=== PATIENT | female | born 1930 | race Caucasian/White ===

== ENCOUNTER 2018-12-11 11:24 | Inpatient (IN) | payer MEDICARE ==
[2018-12-11 11:54] LABS: ABS Eosinophils 0.1 10^3/ul (0-0.6); ABS Lymphocytes 0.8 10^3/ul (1.0-4.8); ABS Monocytes 0.6 10^3/ul (0-0.8); ABS Neutrophils 3.8 10^3/ul (1.5-7.7); Eosinophil % 2.5 %; Hematocrit 42 % (35-47); Hemoglobin 14.3 g/dL (12.0-16.0); Lymphocyte % 14.9 %; Mean Corpuscular HGB Conc 34 g/dL (31-36); Mean Corpuscular Hemoglobin 34 pg (27-31); Mean Corpuscular Volume 100 fL (80-97); Mean Platelet Volume 9.6 fL (7.4-10.4); Nucleated Red Blood Cells % 0.1; Platelet Count 130 10^3/uL (150-450); Red Cell Distribution Width 13 % (10-15); White Blood Count 5.4 10^3/uL (3.5-10.8)
--- NOTE | 2018-12-11 12:01 | ED ---
Palpitations / Dysrhythmia - HPI Summary HPI Summary: The patient is an 88 y/o F presenting to [facility] with a chief complaint of Dr. Reeves's concern for bradycardia this morning. She reports that she was at an appointment at Dr. Reeves's office this morning, when she had been bradycardic in the 30s bpm. She denies any weakness, dizziness, or syncope during the event. She was, however, experiencing diffuse pain across the chest that is still mildly present, and she also c/o dizziness now. She denies any history of Lyme disease. 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 Surgical hx of stents in legs. Nonsmoker, no EtOH, no substance use. - History of Current Complaint Chief Complaint: EDDysrhythmPalp Time Seen by Provider: 12/11/18 11:46 Hx Obtained From: Patient, Other: - Dr. Reeves Onset/Duration: Sudden Onset, Lasting Hours - this morning during her appointment, Still Present Timing: Constant Severity Initially: Moderate Severity Currently: Moderate Character: Slow, Irregular Aggravating: Nothing Alleviating: Nothing Associated Signs & Symptoms: Chest Pain - mild, diffuse - Allergy/Home Medications Allergies/Adverse Reactions: Allergies Allergy/AdvReac Type Severity Reaction Status Date / Time aspartame Allergy Unknown Verified 12/11/18 13:32 Reaction Details metoprolol Allergy Unknown Verified 12/11/18 12:33 Reaction Details pentoxifylline Allergy Unknown Verified 12/11/18 12:33 Reaction Details aspirin AdvReac Nausea Verified 12/11/18 13:32 atorvastatin [From Lipitor] AdvReac Leg Cramps Verified 12/11/18 13:32 clopidogrel [From Plavix] AdvReac GI Upset Verified 12/11/18 13:32 ezetimibe [From Zetia] AdvReac Leg Cramps Verified 12/11/18 13:32 niacin AdvReac Leg Cramps Verified 12/11/18 13:32 Wbicfyl-Mns-Jsa Reductase AdvReac Leg Cramps Verified 12/11/18 13:32 Inhibitor TRUVIA Allergy Unknown Unknown Uncoded 03/24/13 11:50 Reaction Details splenda Allergy Unknown Uncoded 03/24/13 11:50 Reaction Details Home Medications: Home Medications Aspirin EC TAB* [Ecotrin EC Low Dose 81 MG*] 81 mg PO DAILY 12/11/18 [History Confirmed 12/11/18] Atenolol TAB* [Tenormin TAB* 25 MG] 25 mg PO DAILY 12/11/18 [History Confirmed 12/11/18] Cholecalciferol TAB* [Vitamin D TAB*] 2,000 units PO DAILY 12/11/18 [History Confirmed 12/11/18] Cyanocobalamin TAB* [Vitamin B12 TAB*] 1,000 mcg PO DAILY 12/11/18 [History Confirmed 12/11/18] Gabapentin CAP(*) [Neurontin 100 mg CAP(*)] 100 mg PO BEDTIME 12/11/18 [History Confirmed 12/11/18] Lisinopril TAB* [Prinivil TAB*] 20 mg PO DAILY 12/11/18 [History Confirmed 12/11] Multivitamins/Minerals TAB* [Theragran/minerals TAB*] 1 tab PO DAILY 12/11/18 [ History Confirmed 12/11/18] PMH/Surg Hx/FS Hx/Imm Hx Endocrine/Hematology History: Denies: Hx Diabetes, Hx Sickle Cell Disease Cardiovascular History: Reports: Hx Angina, Hx Coronary Artery Disease, Hx Hypercholesterolemia, Hx Hypertension, 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, Hx Valvular Heart Disease - aortic valve replaced 7yr ago Denies: Hx Pacemaker/ICD Respiratory History: Denies: Hx Asthma, Hx Chronic Obstructive Pulmonary Disease (COPD), Other Respiratory Problems/Disorders GI History: Reports: Other GI Disorders - colon resection, colon CA History: Reports: Hx Kidney Stones Denies: Other Problems/Disorders Musculoskeletal History: Reports: Hx Arthritis Denies: Hx Rheumatoid Arthritis, Hx Osteoporosis Sensory History: Reports: Hx Contacts or Glasses, Other Sensory Impairments - vertigo Denies: Hx Hearing Aid Opthamlomology History: Reports: Hx Contacts or Glasses, Other Sensory Impairments - vertigo Neurological History: Reports: Other Neuro Impairments/Disorders - neuropathy, vertigo Psychiatric History: Denies: Hx Panic Disorder - Cancer History Cancer Type, Location and Year: Colon Cancer, SKIN Hx Chemotherapy: Yes - COLON CANCER, 70'S Hx Radiation Therapy: Yes - Surgical History Surgery Procedure, Year, and Place: COLON RESECTION. AORTIC VALVE REPLACED 05/24- [place]- [address] [facility] PORCINE VALVE: [id number], CONDITIONAL FOR 1.5T TO 3.0 T MRI MAX SPATIAL GRADIENT LESS THAN OR EQUAL TO 3000 GAUSS/cm ( INFORMATION SCANNED INTO PT'S EMR). ANGIOPLASTY. HERNIA REPAIR Xs 2 -1998 & 2013. CATARACT. STENTS IN LEGS TO OPEN UP BLOODFLOW. CYSTS REMOVED FROM VARIOUS PARTS OF BODY Hx Anesthesia Reactions: No Infectious Disease History: No Infectious Disease History: Denies: Traveled Outside the [place] in Last 30 Days - Family History Known Family History: Positive: Cardiac Disease, Hypertension - Social History Occupation: Retired Lives: With Family - son Alcohol Use: None Hx Substance Use: No Substance Use Type: Reports: None Hx Tobacco Use: No Smoking Status (MU): Never Smoked Tobacco Review of Systems Positive: Chest Pain - diffuse across chest, Other - bradycardia (per Dr. Reeves ) Neurological: Other - no dizziness at time of event but is mildly dizzy in ED Negative: Weakness, Syncope All Other Systems Reviewed And Are Negative: Yes Physical Exam - Summary Physical Exam Summary: Appearance: Well appearing, no pain distress Skin: warm, dry, reflects adequate perfusion Head/face: normal Eyes: EOMI, KEREN ENT: normal Neck: supple, non-tender Respiratory: CTA, breath sounds present Cardiovascular: regularly irregular HR with bradycardia, pulses symmetrical Abdomen: non-tender, soft Musculoskeletal: normal, strength/ROM intact Neuro: normal, sensory motor intact, A&Ox3 Triage Information Reviewed: Yes Vital Signs On Initial Exam: Initial Vitals Temp Pulse Resp BP Pulse Ox 98.5 F 30 18 180/62 98 12/11/18 11:33 12/11/18 11:33 12/11/18 11:33 12/11/18 11:33 12/11/18 11:33 Vital Signs Reviewed: Yes Diagnostics - Vital Signs Vital Signs Temp Pulse Resp BP Pulse Ox 12/11/18 11:33 98.5 F 30 18 180/62 98 - Laboratory Result Diagrams: 12/11/18 11:47 12/11/18 11:47 Lab Statement: Any lab studies that have been ordered have been reviewed, and results considered in the medical decision making process. - Radiology CXR Radiology Interpretation Completed By: Radiologist Summary of Radiographic Findings: Impression: No active cardiopulmonary disease is noted. ED physician has reviewed this report. - EKG 1139 Cardiac Rate: NL - 52 BPM, Bradycardia EKG Rhythm: Sinus Bradycardia Summary of EKG Findings: Sinus bradycardia at 52 bpm. No acute ischemic changes. Re-Evaluation - Re-Evaluation First Eval Re-Evaluation Time: 12:30 Comment: I spoke with the patient concerning admission. She agrees with this plan. Course/Dx - Course Course Of Treatment: The patient is an 88 y/o F presenting to [facility] with a chief complaint of Dr. Reeves's concern for bradycardia in the 30 bpm range with diffuse CP this morning while being evaluated in the office. Mild dizziness and CP present in ED. Denies weakness, syncope, and hx of Lyme disease. 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 Surgical hx of stents in legs. Upon physical exam, the patient exhibits a regularly irregular heart rate that is bradycardic. Blood work reveals MCV of 100, MCH of 34, plt count of 130, abs lymphs of 0.8, creatinine of 1.02, BUN/ Creatinine ratio of 23.5, glucose of 107, calcium of 10.5. EKG at 1139 reveals sinus bradycardia at 52 bpm. CXR reveals no active cardiopulmonary disease. At 1210, I spoke with Dr. Nevarez, cardiology, concerning the patient's EKG, and he agreed to come to the ED to consult for the patient. He is in the ED at 1215. I also discussed the patients case with Dr. Fong, hospitalist, and he accepts the patient for admission at 1225. The patient agrees with this plan. She is diagnosed with bradycardia and dizziness. - Diagnoses Differential Diagnosis/HQI/PQRI: Positive: Other - dizziness/bradycardia Provider Diagnoses: Bradycardia, Dizziness - Physician Notifications Discussed Care Of Patient With: Jason Nevarez - cardiology Time Discussed With Above Provider: 12:10 Instructed by Provider To: Other - I spoke with Dr. Nevarez concerning the patient's EKG, and he agreed to come to the ED to consult for the patient. I spoke with Dr. Fong concerning the patient's case, and he accepts the patient for admission at 1225. Discharge - Sign-Out/Discharge Documenting (check all that apply): Patient Departure - Patient is accepted for admission by Dr. Fong for further workup. Patient Received Moderate/Deep Sedation with Procedure: No - Discharge Plan Condition: Stable Disposition: ADMITTED TO [facility] Referrals: La Minor MD [Primary Care Provider] - - Billing Disposition and Condition Condition: STABLE Disposition: Admitted to [facility] - Attestation Statements Document Initiated by José: Yes Documenting Scribe: Shonna Alfonso Provider For Whom José is Documenting (Include Credential): Dr. Jeffery Torres MD Scribe Attestation: Shonna Purcell scribed for Dr. Jeffery Torres MD on 12/11/18 at 1352. Scribe Documentation Reviewed: Yes Provider Attestation: The documentation as recorded by the Shonna moore accurately reflects the service I personally performed and the decisions made by , Dr. Jeffery Torres MD Status of Scribe Document: Viewed
[2018-12-11 12:07] LABS: INR 1.04 (0.82-1.09)
--- OUTSIDE RECORDS SUMMARY | 2018-12-11 12:13 | XMS REPORT | Continuity of Care Document ---
:1930 External Reference #:[id number] Author Name Minerva Clark Care Team Providers Name Role Phone La Arzola MD Primary Care Physician Unavailable Payers Date Identification Numbers Payment Provider Subscriber Effective: 2007 Policy Number: [id number] [employer] Gifty Merida PayID: [id number] [address] [address] Attn: [place] [address] Problems Active Problems Provider Date Chest pain Pilo Jean M.D., [facility], Onset: 03/08/2013 FASVT Aortic valve disorder Pilo Jean M.D., [facility], Onset: 06/14/2013 FASNC Dyspnea Nancy Reeves MD Onset: 09/29/2015 Gastroesophageal reflux disease Nancy Reeves MD Onset: 09/29/2015 Allergic rhinitis Nancy Reeves MD Onset: 09/29/2015 Asthma without status asthmaticus Nancy Reeves MD Onset: 11/02/2015 Dizziness Linette Rich M.D. Onset: 07/02/2016 Mitral valve disorder Pilo Jean M.D., [facility], Onset: 04/29/2017 FASVT Atherosclerosis of arteries of the Stas Katharine Green M.D. 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 [employer] ETOH Use Denies alcohol use Recreational Drug Use Never Used Drugs Tobacco Use Start: Unknown Patient is a former social smoker, quit End: Unknown smoker in 1970's Smoking Status Reviewed: 12/11/18 Patient is a former social smoker, quit smoker in 1969's Exercise Type/Frequency Exercises sporadically keep busy around house and waking when then weather permits Allergies, Adverse Reactions, Alerts Active Allergies Reaction Severity Comments Date Aspartame 03/04/2013 Lipitor 03/04/2013 Zocor 03/04/2013 Statins 03/08/2013 Lescol 03/08/2013 Zetia 03/08/2013 Niaspan 03/08/2013 Crestor 03/08/2013 Pentoxifylline 03/08/2013 Metoprolol 03/08/2013 Plavix 03/08/2013 ALL Artificial Sweeteners 03/08/2013 [facility] Vitamins 06/14/2013 Medications Active Medications SIG Qnty Indications Ordering Provider Date Gabapentin 2 by mouth at Unknown 09/28/2015 100mg Capsules bed time Atenolol 1 tab by mouth 90tabs Pilo Jean, 03/16/2012 25mg Tablets every day M.D., FACC, FASNC Lisinopril 1 tab by mouth 90tabs Pilo Jean, 03/16/2012 20mg Tablets every day M.D., FACC, FASNC Aspirin 1 po qd Unknown 81mg Tablet Multivitamins 1 capsule daily 30caps Unknown Capsules Vitamin D 1 by mouth every Unknown 2000Unit day Capsules Vitamin B12 1 by mouth every Unknown 1000mcg day Tablets ER Ipratropium [place] spray 3 times Unknown 0.03% daily Solution History Medications Xopenex HFA take 2 pufffs 75units Nancy Reeves, 02/04/2018 - every 4-6 hours as 07/27/2018 45mcg/Act Aerosol needed for shortness of breath Singulair 1 by mouth every 90tabs J45.909 Nancy Reeves, 11/02/2015 - 10mg day( not on pt 07/01/2016 Tablets list) Pulmicort inhale one puff by 3units R06.02 Nancy Reeves, 09/29/2015 - Flexhaler mouth twice a day 07/27/2018 90mcg/Act Aerosol Zantac 1 tab by mouth at 90tabs K21.9 Nancy Reeves, 09/29/2015 - 150mg night (pt no 12/10/2017 Tablets longer taking) Proair HFA 1 puff every 6 3units R06.02 Nancy Reeves, 09/29/2015 - hours as needed 07/27/2018 108(90Base) mcg/Act Aerosol Vesicare 1 by mouth every Unknown 09/28/2015 - 5mg day 03/01/2016 Tablets Nitrostat one sl q5min up to 25tabs Pilo Hopper 02/23/2013 - 0.4mg 3 doses prn, if no Miguelina Jean, 06/03/2014 Tablets Sub relief after 3 FAC, KAILASH call 911 Meclizine HCL bid prn Unknown - 07/27/2018 12.5mg Tablets Ambien 1 po qhs prn sleep 30tabs Unknown - 10mg insomnia 06/03/2014 Tablets Tramadol HCL 1-2 tablets every 100tabs Unknown - 50mg 6 hours as needed 12/10/2018 Tablets Vitamin D3 daily Unknown - Complete 05/20/2013 Tablets Citracal Plus prn Unknown - 05/20/2013 Tablets Calcium 600MG With 1 po qd Unknown - Vitamin D3 04/10/2015 [id number] Tablets Medications Administered in Office Medication SIG Qnty Indications Ordering Provider Date Depomedrol 40MG Katia Jenkins M.D. 11/06/2017 Injection Depomedrol 40MG NIKKIE Raymond 12/11/2016 Injection Depomedrol 40MG Katia Jenkins M.D. 03/20/2016 Injection Inj, Regadenoson, 0.1 MG Pilo Jean M.D., 04/10/2015 Injection AZARKAILASH Aminophylline Pilo Jean M.D., 04/10/2015 Injection KAILASH BAUMAN Technetium TC 99M Pilo Jean M.D., 04/10/2015 Tetrofosmin, Per Unit Dose Up KAILASH BAUMAN To 40 Millicuries Injection Vital Signs Date Vital Result Comment 12/11/2018 10:11am Height 66 inches 5'6" Weight 122.25 lb Heart Rate 30 /min 41 on pulse ox BP Systolic Sitting 136 mmHg Lue regular cuff BP Diastolic Sitting 84 mmHg Lue regular cuff Respiratory Rate 20 /min O2 % BldC Oximetry 97 % BMI (Body Mass Index) 19.7 kg/m2 10/14/2018 11:31am Height 66 inches 5'6" Weight 131.00 lb Heart Rate 50 /min BP Systolic Sitting 110 mmHg BP Diastolic Sitting 60 mmHg Respiratory Rate 16 /min BMI (Body Mass Index) 21.1 kg/m2 07/28/2018 1:59pm Height 66 inches 5'6" Weight 126.50 lb w/o shoes Heart Rate 60 /min BP Systolic 140 mmHg Rue small cuff BP Diastolic 60 mmHg Rue small cuff BP Systolic Sitting 140 mmHg Rue small cuff BP Diastolic Sitting 90 mmHg Rue small cuff Respiratory Rate 16 /min BMI (Body Mass Index) 20.4 kg/m2 Ejection Fraction 60-65% 07/21/18 echo 12/11/2017 11:18am Height 66 inches 5'6" Weight 132.00 lb Heart Rate 72 /min BP Systolic Sitting 116 mmHg BP Diastolic Sitting 76 mmHg Respiratory Rate 14 /min O2 % BldC Oximetry 96 % BMI (Body Mass Index) 21.3 kg/m2 11/06/2017 12:57pm Height 66 inches 5'6" Weight 140.00 lb Heart Rate 60 /min Respiratory Rate 16 /min Body Temperature 97.0 F Pain Level 0 BMI (Body Mass Index) 22.6 kg/m2 04/29/2017 1:08pm Height 66 inches 5'6" Weight 135.00 lb Heart Rate 56 /min BP Systolic Sitting 120 mmHg Lue reg cuff BP Diastolic Sitting 70 mmHg Lue reg cuff BP Systolic Standing 112 mmHg Lue reg cuff BP Diastolic Standing 66 mmHg Lue reg cuff Respiratory Rate 15 /min BMI (Body Mass Index) 21.8 kg/m2 Ejection Fraction 60-65% 04/22/2017-echo 12/11/2016 1:08pm Height 66 inches 5'6" Weight 138.00 lb BP Systolic 130 mmHg BP Diastolic 68 mmHg Respiratory Rate 15 /min Body Temperature 97.8 F BMI (Body Mass Index) 22.3 kg/m2 07/02/2016 10:38am Height 66 inches 5'6" Weight 138.00 lb Heart Rate 56 /min BP Systolic Sitting 128 mmHg BP Diastolic Sitting 68 mmHg Respiratory Rate 16 /min BMI (Body Mass Index) 22.3 kg/m2 05/27/2016 1:24pm Height 66 inches 5'6" Weight 138.50 lb Heart Rate 52 /min BP Systolic Sitting 134 mmHg BP Diastolic Sitting 74 mmHg Respiratory Rate 16 /min O2 % BldC Oximetry 95 % BMI (Body Mass Index) 22.4 kg/m2 05/27/2016 1:20pm Height 66 inches 5'6" 05/27/2016 1:17pm Height 66 inches 5'6" Weight 138.38 lb BMI (Body Mass Index) 22.3 kg/m2 05/01/2016 10:39am Height 66 inches 5'6" Weight 138.50 lb with shoes Heart Rate 54 /min BP Systolic Sitting 128 mmHg Lue reg cuff BP Diastolic Sitting 76 mmHg Lue reg cuff BP Systolic Standing 118 mmHg Lue reg cuff BP Diastolic Standing 72 mmHg Lue reg cuff Respiratory Rate 16 /min BMI (Body Mass Index) 22.4 kg/m2 Ejection Fraction 60-65% 04/23/2016 03/20/2016 3:50pm Height 66 inches 5'6" Weight 142.00 lb Respiratory Rate 16 /min Pain Level 5 BMI (Body Mass Index) 22.9 kg/m2 11/02/2015 10:42am Height 66 inches 5'6" Weight 142.00 lb Heart Rate 51 /min BP Systolic Sitting 122 mmHg BP Diastolic Sitting 77 mmHg Respiratory Rate 14 /min O2 % BldC Oximetry 96 % BMI (Body Mass Index) 22.9 kg/m2 09/29/2015 11:09am Height 66 inches 5'6" Weight 142.00 lb Heart Rate 56 /min BP Systolic 128 mmHg BP Diastolic 88 mmHg Respiratory Rate 14 /min O2 % BldC Oximetry 96 % BMI (Body Mass Index) 22.9 kg/m2 Neck Circumference in inches 14 04/19/2015 1:24pm Height 66 inches 5'6" Weight 145.00 lb Heart Rate 76 /min BP Systolic Sitting 136 mmHg LA reg cuff BP Diastolic Sitting 84 mmHg LA reg cuff BP Systolic Standing 134 mmHg LA BP Diastolic Standing 84 mmHg LA Respiratory Rate 16 /min BMI (Body Mass Index) 23.4 kg/m2 Ejection Fraction 60-65% 04/12/15 06/06/2014 10:50am Height 66 inches 5'6" Weight 145.00 lb with shoes Heart Rate 56 /min BP Systolic Sitting 142 mmHg Ra reg cuff BP Diastolic Sitting 68 mmHg Ra reg cuff BP Systolic Standing 160 mmHg Ra reg cuff BP Diastolic Standing 64 mmHg Ra reg cuff Respiratory Rate 16 /min BMI (Body Mass Index) 23.4 kg/m2 06/14/2013 1:40pm Height 65.75 inches 5'5.75" Weight 140.00 lb Heart Rate 54 /min BP Systolic Sitting 134 mmHg left arm, reg cuff BP Diastolic Sitting 86 mmHg left arm, reg cuff BP Systolic Standing 128 mmHg left arm, reg cuff BP Diastolic Standing 78 mmHg left arm, reg cuff Respiratory Rate 20 /min BMI (Body Mass Index) 22.8 kg/m2 03/08/2013 10:26am Height 66.5 inches 5'6.50" Weight 140.00 lb Heart Rate 56 /min BP Systolic Sitting 148 mmHg LA reg cuff BP Diastolic Sitting 70 mmHg LA reg cuff BP Systolic Standing 114 mmHg LA BP Diastolic Standing 74 mmHg LA BMI (Body Mass Index) 22.3 kg/m2 Results Test Date Facility Test Result H/L Range Note CBC Auto Diff 09/30/2017 [facility] White Blood 3.7 10^3/uL N 3.5-10.[address] [place] [address] [phone] Red Blood Count 3.83 10^6/uL Low 4.0-5.4 Hemoglobin 13.2 g/dL N 12.0-16.0 Hematocrit 39 % N 35-47 Mean Corpuscular Volume 101 fL High 80-97 Mean Corpuscular Hemoglobin 35 pg High 27-31 Mean Corpuscular HGB Conc 34 g/dL N 31-36 Red Cell Distribution Width 13 % N 10.5-15 Platelet Count 151 10^3/uL N 150-450 Mean Platelet Volume 8.6 um3 N 7.4-10.4 Abs Neutrophils 2.2 10^3/uL N 1.5-7.7 Abs Lymphocytes 0.9 10^3/uL Low 1.0-4.8 Abs Monocytes 0.5 10^3/uL N 0-0.8 Abs Eosinophils 0.1 10^3/uL N 0-0.6 Abs Basophils 0 10^3/uL N 0-0.2 Abs Nucleated RBC 0 10^3/uL Granulocyte % 59.3 % N 38-83 Lymphocyte % 24.9 % Low 25-47 Monocyte % 12.5 % High 0-7 Eosinophil % 2.7 % N 0-6 Basophil % 0.6 % N 0-2 Nucleated Red Blood Cells % 0.1 BMP Basic Metabolic 12/16/2014 [facility] Sodium 138 mmol/L N 133-145 Panel (8) [address] [place] [address] [phone] Potassium 4.1 mmol/L N 3.5-5.0 Chloride 101 mmol/L N 101-111 Co2 Carbon Dioxide 31 mmol/L N 22-32 Anion Gap 6 mmol/L N 2-11 Glucose 85 mg/dL N 70-100 Blood Urea Nitrogen 12 mg/dL N 6-24 Creatinine 0.92 mg/dL N 0.51-0.95 BUN/Creatinine Ratio 13.0 N 8-20 Calcium 10.6 mg/dL High 8.6-10.3 Egfr Non- 58.3 N >60 Egfr 75.0 N >60 1 Basic Metabolic Panel 03/08/2013 [facility] Sodium 138 mmol/L 133-145 [address] [place] [address] [phone] Potassium 3.8 mmol/L 3.5-5.0 Chloride 103 mmol/L 101-111 Co2 Carbon Dioxide 29.0 mmol/L 22-32 Anion Gap 6.0 mmol/L 2-11 Glucose 108 mg/dL High 70-100 Blood Urea Nitrogen 16 mg/dL 6-24 Creatinine 0.80 mg/dL 0.50-1.40 BUN/Creatinine Ratio 20.0 8-20 Calcium 9.5 mg/dL 8.1-9.9 Egfr Non- 68.8 >60 Egfr 88.5 >60 2 Laboratory test 03/08/2013 [facility] Vitamin B12 456 pg/mL 180-914 finding [address] [place] [address] [phone] Folate > 24.8 ng/mL High 2-16 1 Because ethnic data is not always readily available, this report includes an eGFR for both -Americans and non- Americans. The National Kidney Disease Education Program (NKDEP) does not endorse the use of the MDRD equation for patients that are not between the ages of 18 and 70, are , have extremes of body size, muscle mass, or nutritional status, or are non- or non-. According to the National Kidney Foundation, irrespective of diagnosis, the stage of the disease is based on the level of kidney function: Stage Description GFR(mL/min/1.73 m(2)) 1 Kidney damage with normal or decreased GFR 90 2 Kidney damage with mild decrease in GFR 60-89 3 Moderate decrease in GFR 30-59 4 Severe decrease in GFR 15-29 5 Kidney failure <15 (or dialysis) 2 Because ethnic data is not always readily available, this report includes an eGFR for both -Americans and non- Americans. The National Kidney Disease Education Program (NKDEP) does not endorse the use of the MDRD equation for patients that are not between the ages of 18 and 70, are , have extremes of body size, muscle mass, or nutritional status, or are non- or non-. According to the National Kidney Foundation, irrespective of diagnosis, the stage of the disease is based on the level of kidney function: Stage Description GFR(mL/min/1.73 m(2)) 1 Kidney damage with normal or decreased GFR 90 2 Kidney damage with mild decrease in GFR 60-89 3 Moderate decrease in GFR 30-59 4 Severe decrease in GFR 15-29 5 Kidney failure <15 (or dialysis) Procedures Date Code Description Status 07/28/2018 17549 EKG Tracing & Interpretation Completed 07/21/2018 08389 ECHO Transthoracic, Real-Time 2D With Doppler And Color Completed Flow 07/21/2018 69879 ECHO Transthoracic, Real-Time 2D With Doppler And Color Completed Flow 11/06/2017 71891 Inject Tendon Sheath Or Ligament Aponeurosis Eg Plantar Completed Fascia 04/29/2017 35545 EKG Tracing & Interpretation Completed 04/22/2017 91267 ECHO Transthoracic, Real-Time 2D With Doppler And Color Completed Flow 12/11/2016 54557 Inject Tendon Sheath Or Ligament Aponeurosis Eg Plantar Completed Fascia 05/01/2016 54317 EKG Tracing & Interpretation Completed 04/23/2016 84085 ECHO Transthoracic, Real-Time 2D With Doppler And Color Completed Flow 03/20/2016 41553 Inject Tendon Sheath Or Ligament Aponeurosis Eg Plantar Completed Fascia 07/11/2015 11799 Spirometry Incl Graphic Record Completed 04/19/2015 24054 EKG Tracing & Interpretation Completed 04/12/2015 22689 ECHO Transthoracic, Real-Time 2D With Doppler And Color Completed Flow 04/10/2015 21695 Stress Test Completed 04/10/2015 90452 Myocardial Perfusion Imaging Tomographic (Spect) Multiple Completed Studies 06/06/2014 81339 EKG Tracing & Interpretation Completed 06/01/2014 51191 ECHO Transthoracic, Real-Time 2D With Doppler And Color Completed Flow 06/14/2013 38128 EKG Tracing & Interpretation Completed 06/04/2013 19257 ECHO Transthoracic, Real-Time 2D With Doppler And Color Completed Flow 03/08/2013 05720 EKG Tracing & Interpretation Completed 02/28/2013 08015 Treadmill Interp/Report Only Completed 02/28/2013 65951 Stress Test Supervsn W/Out I/R Completed 06/16/2012 17782 EKG Tracing & Interpretation Completed 06/12/2012 21415 ECHO Transthoracic, Real-Time 2D With Doppler And Color Completed Flow Encounters Type Date Location Provider Dx Diagnosis Office Visit 12/11/2018 [facility]ology And Nancy Wili Reeves45.909 Unspecified asthma, 10:30a Sleep Services Of MD uncomplicated [facility] R00.1 Bradycardia, unspecified Office Visit 11/05/2018 11:20a [facility] Dermatology Keshav Live, I87.2 Venous MD insufficiency (chronic) (peripheral) L81.8 Other specified disorders of pigmentation Office Visit 10/14/2018 [facility] Alcantar I70.223 Athscl [place] 11:30a Medicine Of Lauren Green M.D. arteries of extrm w rest pain, bilateral legs Office Visit 07/28/2018 [facility] Pilo Hopper I34.0 Nonrheumatic mitral 2:15p Of Lauren Jean M.D., (valve) FAC, FASNC insufficiency Office Visit 12/11/2017 [facility] And Nancy J45.909 Unspecified asthma , 11:30a Sleep Services Of MD Lala uncomplicated Poker In Office Visit 04/29/2017 [facility] Pilo Hopper I34.0 Nonrheumatic mitral 2:00p Of Lauren Jean M.D., (valve) FACC, FASNC insufficiency Office Visit 07/02/2016 [facility] Linette MVal R42 Dizziness and 11:00a Services Of laury Marquez M.D. Office Visit 05/27/2016 Pulmonology And Nancy J45.909 Unspecified asthma , 1:15p Sleep Services Of MD Lala uncomplicated [facility] Office Visit 05/01/2016 [facility] Pilo Ward I35.8 Other nonrheumatic 10:45a Of [facility] Miguelina Jean, aortic valve FACC, FASNC disorders I25.10 Athscl heart disease of [place] coronary artery w/o ang pctrs Z95.2 Presence of prosthetic heart valve Office Visit 03/20/2016 Orth[facility] Katia M65.341 Trigger finger, 3:30p Services Of Miguelina Jenkins right ring finger C.M.A. Office Visit 11/02/2015 Pulmonology And Nancy J45.909 Unspecified 10:45a Sleep Services Of MD Lala asthma, [facility] uncomplicated J30.9 Allergic rhinitis, unspecified K21.9 Gastro-esophageal reflux disease without esophagitis Office Visit 09/29/2015 11:00a Pulmonology And Nancy R06.02 Shortness of Sleep Services Of MD [place] breath Poker In K21.9 Gastro-esophageal reflux disease without esophagitis J30.9 Allergic rhinitis, unspecified Office Visit 04/19/2015 1:45p [facility] Pilocat Hopper I35.[address] Of [facility] Miguelina Jean, aortic valve FACC, FASNC disorders Office Visit 06/06/2014 10:45a [facility] Pilocat Hopper 424.[address] [facility] Miguelina Jean, Disorder FACC, FASNC Office Visit 06/14/2013 1:15p [facility] Pilo Hopper 424.[address] [facility] AT [facility] Miguelina Jean, Disorder FACC, FASNC Office Visit 03/08/2013 10:15a [facility] Pilocat Hopper 786.50 Pain Chest Unspec Of [facility] Miguelina Jean, FACC, FASNC Office Visit 02/28/2013 7:14a [facility] Addi Anton, 786.51 Pain Precordial Assoc,gildardo Mcintyre Hospitalists 424.1 Aortic Valve Disorder 401.9 Hypertension Unspec 780.4 Dizziness & Giddiness Office Visit 02/27/2013 7:14a [facility] Addi Anton, 786.51 Pain Precordial Assoc,gildardo Mcintyre Hospitalists 424.1 Aortic Valve Disorder 401.9 Hypertension Unspec 780.4 Dizziness & Giddiness Office Visit 02/08/2013 [facility] Ben Obregon 560.9 Intestinal 8:54a Assocgildardo II, M.D. Obstruction Hospitalists Unspec 401.9 Hypertension Unspec 789.03 Pain Abdominal Right Lower Quadrant Office Visit 02/06/2013 [facility] Eyal 560.9 Intestinal 8:53a Assocgildardo M.D. Obstruction Hospitalists Unspec 401.9 Hypertension Unspec 789.03 Pain Abdominal Right Lower Quadrant Office Visit 06/16/2012 10:30a [facility] Pilo Ward 424.[address] [facility] Miugelina Jean, Disorder FACC, FASNC Office Visit 12/11/2007 11:15a Neurosurgery Mack Patrick 719.[address] [facility] Miguelina Tripathi Pelvic Region & Thigh 459.9 Circulatory System Disorder Unspec Plan of Treatment Future Appointment(s):12/20/2019 11:30 am - Nancy Reeves MD at Pulmonology And Sleep Services Of [facility]12/11/2018 - Nancy Reeves MDJ45.909 Unspecified asthma, uncomplicatedFollow up:1 yearR00.1 Bradycardia, unspecified
[2018-12-11 12:16] LABS: ALT 18 U/L (7-52); AST 24 U/L (13-39); Albumin 4.1 g/dL (3.2-5.2); Albumin/Globulin Ratio 1.5 (1-3); Alkaline Phosphatase 62 U/L (34-104); Anion Gap 9 mmol/L (2-11); BUN/Creatinine Ratio 23.5 (8-20); Blood Urea Nitrogen 24 mg/dL (6-24); CO2 Carbon Dioxide 25 mmol/L (22-32); Calcium 10.5 mg/dL (8.6-10.3); Chloride 105 mmol/L (101-111); EGFR Non-African American 51.3 (>60); Globulin 2.7 g/dL (2-4); Glucose 107 mg/dL (70-100); Potassium 4.2 mmol/L (3.5-5.0); Sodium 139 mmol/L (135-145); Total Protein 6.8 g/dL (6.4-8.9); Troponin I 0.01 ng/mL (<0.04)
[2018-12-11 13:19] LABS: Cholesterol 158 mg/dL; HDL Cholesterol 53.5 mg/dL; LDL Cholesterol 84 mg/dL; Triglycerides 102 mg/dL
[2018-12-11 13:40] LABS: TSH (Thyroid Stimulating Horm) 1.15 mcIU/mL (0.34-5.60)
--- NOTE | 2018-12-11 14:20 | CONS ---
CC: Dr. Arzola; Dr. Jean CONSULTATION REPORT: ADDENDUM: ALLERGIES: She was unable to tell me her allergies. However, in Dr. Jean's chart, it is listed as: ASPARTAME, LIPITOR, ZOCOR, STATIN, LESCOL, ZETIA, NIASPAN, CRESTOR, PENTOXIFYLLINE, METOPROLOL, PLAVIX, ARTIFICIAL SWEETENERS, AREDS EYE VITAMINS. Apparently, she was also being evaluated for peripheral vascular disease by Dr. Green. [id number]/[facility] #: [id number] MTDD
--- NOTE | 2018-12-11 15:10 | CONS ---
CC: Dr. Arzola; Dr. Jean; Dr. Reeves CARDIOLOGY CONSULTATION: DATE OF CONSULT: 12/11/18 CONSULTING PHYSICIAN: Dr. Torres. REASON FOR EVALUATION: Bradycardia. HISTORY OF PRESENT ILLNESS: This is a very pleasant 88-year-old woman with a history of coronary artery disease, AVR in 2005, now admitted with bradycardia. I was called to see this patient because she had a routine visit at her [employer] [facility] today and was found to have bradycardia and was sent to the emergency room. In the emergency room, it was thought perhaps that she had a complete heart block; however, review of the EKG revealed sinus bradycardia with frequent PVCs or APCs with aberrancy. No evidence of complete heart block or second degree block. The patient denies any syncope or near syncope. She does report that over the last 3 to 4 months, she has noticed she gets more short of breath, climbing a flight of stairs. She can do it, but she gets more winded. She said that is new compared to 4 months ago and in fact she saw Dr. Jean in July and had no complaints and was exercising fairly regularly. She also has significant peripheral vascular disease, but has not demonstrated symptoms. She has hypertension and she reports her memory is impaired. She has hyperlipidemia, but has not tolerated any statins, multiple other lipid lowering agents. PAST MEDICAL HISTORY: Includes hypertension; peripheral vascular disease; asthma, COPD, followed by Dr. Reeves; near syncope, aortic stenosis and AVR in December 2005; ventricular tachycardia. Moderate RCA disease back in 2005, fibromyalgia and MR. PAST SURGICAL HISTORY: She had her surgeries include AVR in 2005. She had a surgical replacement with a Biocor #[id number]. She had a surgery for colon cancer in 1979. She also had cataract surgery, right breast lump, and herniorrhaphy. MEDICATIONS: Include: 1. Aspirin 81 mg a day. 2. Atenolol 25 mg a day. 3. Neurontin 100 mg a day at bedtime for neuropathy. 4. Lisinopril 20 mg a day. 5. Multivitamins. 6. Cholecalciferol 2000 units a day. 7. Vitamin B12 at 1000 mcg a day. FAMILY HISTORY: She has 9 siblings, 3 are , 1 of heart disease in his 50s. SOCIAL HISTORY: She is since 1976 and lives on her own. She drives. She takes care of her house. She drinks 1 cup of caffeinated coffee a day. She denies alcohol use. She denies tobacco use. She has 2 adult children. REVIEW OF SYSTEMS: Negative except she does complain of some achiness in her feet and toes at times. This seems to occur at rest and raised the possibility of claudication. She denies fevers, chills, sweats, orthopnea, or PND. She also reports a weight loss about 20 pounds over the last several months. PHYSICAL EXAM: She is a well-developed, well-nourished elderly female, balding , with somewhat underweight and appearing cachectic. 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 No cervical adenopathy or thyromegaly. Extraocular muscles intact. Sclerae anicteric. Cardiac Exam: S1 , S2 with a 3/6 systolic ejection murmur at the base and a 4/6 holosystolic murmur at the apex radiating to the axilla. Chest was clear. No CVAT or kyphosis. Abdomen: Bowel sounds present, nontender. No hepatosplenomegaly. Femoral pulses intact with bruits bilaterally. Distal pulses not palpable on the right and diminished dorsalis pedis on the left. O2 sat is 98% on room air. Blood pressure was 180/62, temperature 98.5, and heart rate in the 50s with frequent PVCs and bigeminy and some trigeminy. DIAGNOSTIC STUDIES/LAB DATA: Chest x-ray reveals no active cardiopulmonary disease and EKG was described before and revealed sinus bradycardia at 52 with frequent PVCs or aberrantly conducted APCs, poor R-wave progression and it actually looks similar to July 28 and her echo from 07/21/18 revealed EF is 60 % to 65%, normal bioprosthetic aortic valve with mild to moderate aortic stenosis, peak velocity of 3.1, LVOT velocity of 1.2, moderate MR, moderate prolapse of the mitral leaflets, left posterior greater than anterior, mild mitral stenosis, mild to moderate TR, PA pressure of 33, similar to April 2017. She also had peripheral vascular studies from August 13, which revealed findings consistent with claudication bordering on rest pain, measured at the bilateral dorsalis pedis arteries. IMPRESSION: The impression is that Ms. Merida has more dyspnea on exertion and is noted to have sinus bradycardia and PVCs. It is possible that she is experiencing symptomatic sinus node dysfunction or she might have had progression of her coronary disease or progression of her valvular heart disease including MR. For the time being, I recommend the followin. I suggested that we hold her atenolol temporarily and then restart at a lower dose and taper off to see if her heart rate improves. 2. She is to have an echo to reevaluate her valvular function and LV function. 3. If she fails to improve, we can consider the possibility of a nuclear stress test to evaluate for progression of her ischemia. 4. Would also consider the possibility of referral for evaluation of her vascular disease. 5. Would suggest using lisinopril and perhaps amlodipine to control her blood pressure without excessively lowering her heart rate. 6. Check a TSH and B12. Further recommendations will depend on her clinical course. I discussed with Jenn Milton NP, the possibilities will be caring for as an inpatient. [id number]/[facility] #: [id number] See separate list of multiple allergies dictated separately. TRAVIS
[2018-12-11] MEDS: Heparin VIAL(*) 5000 UNITS/ML VIAL (FIVE THOUSAND) SUBCUT SCH ×2 (16:06→20:49)
--- NOTE | 2018-12-11 16:26 | HP ---
CC: Dr. La Arzola; Dr. Jean * HISTORY AND PHYSICAL: DATE OF ADMISSION: 12/11/18 PRIMARY CARE PROVIDER: Dr. La Arzola. OTHER PROVIDERS: Dr. Nevarez, Cardiology in consultation. ATTENDING PHYSICIAN: Dr. Fong * (dictated by Hema Rajan, REED). CHIEF COMPLAINT: Bradycardia. HISTORY OF PRESENT ILLNESS: Ms. Merida is an 88-year-old female with a past medical history significant for aortic valve replacement, ventricular tachycardia, hypertension, diverticulitis, hemorrhoids, adenocarcinoma, CAD, PVD , who presented to the emergency room today after being seen in Dr. Reeves's office who noted she was bradycardic in the 30s. The patient reports that she has been tiring easily for several weeks and reports she attributed this initially to her age. She also reports that she has been having some shortness of breath going up stairs or walking up a hill, which has also been going on for a few weeks. The patient denies any dizziness or syncope. She denies any chest pain, recent illness, fever, anorexia, edema, cough, nausea, vomiting, diarrhea, abdominal pain, dysuria, visual changes, nasal congestion, sore throat , arthralgias or myalgias, rashes or lesions. She does report a 10-pound weight loss in a couple of weeks despite no change in diet or activity. While in the emergency department, the patient was noted to have a heart rate in the 30s with occasional bigeminy and trigeminy. There was concern for third- degree heart block; therefore, Dr. Nevarez from Cardiology was consulted and evaluated the patient. He reports that it is not third-degree heart block, but instead sinus bradycardia with trigeminy and bigeminy. There is some concern that the patient might be developing sick sinus syndrome given her age; therefore, they requested that she be admitted for medication adjustments and further evaluation. PAST MEDICAL HISTORY: 1. Aortic stenosis, status post AVR in 2005. 2. Ventricular tachycardia. 3. Hypertension. 4. Diverticulitis. 5. Hemorrhoids. 6. Adenocarcinoma. 7. Coronary artery disease. 8. Asthma. 9. PVD. PAST SURGICAL HISTORY: 1. Colon cancer. 2. Ganglion cyst. 3. Hernia repair. 4. Aortic valve replacement. 5. Cataracts. 6. Multiple skin surgeries for skin cancer. 7. Stents x2 to right leg. HOME MEDICATIONS: 1. Vitamin B12 at 1000 mcg. 2. Vitamin D 2000 units p.o. daily. 3. Multivitamin 1 tab p.o. daily. 4. Lisinopril 20 mg p.o. daily. 5. Gabapentin 100 mg p.o. at bedtime. 6. Atenolol 25 mg p.o. daily. 7. Aspirin 81 mg p.o. daily. ALLERGIES: 1. ASPARTAME. 2. LIPITOR. 3. ZOCOR. 4. STATINS. 5. LESCOL. 6. ZETIA. 7. NIASPAN. 8. CRESTOR. 9. PENTOXIFYLLINE. 10. METOPROLOL. 11. PLAVIX. 12. ALL ARTIFICIAL SWEETENERS. 13. AREDS EYE VITAMINS. FAMILY HISTORY: Father had asthma and at age 49. Mother had diabetes and congestive heart failure. Sister passed of a stroke. Sister had cancer of blood. Brother had heart attack. Brother had open heart surgery with mitral valve repair. SOCIAL HISTORY: The patient lives alone. The patient reports she ambulates independently, but occasionally uses a walker, which she has in her car. The patient is . The patient has 2 kids. The patient reports former smoking approximately 20 years. The patient denies alcohol use. The patient denies drug use. The patient reports her surrogate decision maker will be her son, Gustavo Rodrigues, in case she could not make decisions for herself. The patient will be a full code. REVIEW OF SYSTEMS: A 14-point review of systems was performed and all the pertinent positive and negative findings are in the HPI. All other systems are negative. PHYSICAL EXAMINATION GENERAL: Ms. Merida is an 88-year-old female who is lying in bed. Appears underweight. Appears stated age. VITAL SIGNS: Temp 98.5, HR 30, RR 18, O2 saturation 98% on room air, BP 180/62. HEENT: EOMs intact. PERRLA. Oral mucosa is moist without lesions. Posterior pharynx is clear. NECK: Supple. No lymphadenopathy. RESPIRATORY: Symmetrical chest expansion. No accessory muscle use. Lungs are clear to auscultation. No rhonchi, wheezes, or rales. CARDIAC: S1, S2 present. Slow rate. Regular rhythm. No murmurs, rubs, or gallops. ABDOMEN: Soft, nontender. Bowel sounds normoactive. EXTREMITIES: Skin is warm and smooth bilaterally. No edema. No clubbing or cyanosis. Pedal pulses 2+ bilaterally. MUSCULOSKELETAL: Full range of motion. No pain or deformities. NEURO: The patient is awake, alert, oriented x4. Motor strength is 5/5 in the upper and lower extremities. No focal deficits or weakness. SKIN: Grossly intact without lesions. DIAGNOSTIC STUDIES/LAB DATA: WBC 5.4, hemoglobin 14.3, hematocrit 42, platelets 130. Sodium 139, potassium 4.2, chloride 105, carbon dioxide 25, BUN 24, creatinine 1.02, magnesium 2.0. Cholesterol 158, LDL 85, HDL 53.5. TSH is currently pending. Chest x-ray: No active cardiopulmonary disease is noted. EKG: Sinus gloria with occasional PVC. ASSESSMENT AND PLAN: Ms. Merida is an 88-year-old female with a past medical history significant for aortic valve replacement due to stenosis, ventricular tachycardia, hypertension, diverticulitis, hemorrhoids, adenocarcinoma, coronary artery disease, peripheral vascular disease, asthma, who presents to the emergency department today at the instruction of Dr. Reeves given her bradycardia. The patient will be placed OBV. 1. Bradycardia. As mentioned above, the patient was evaluated by Dr. Nevarez here in the emergency department. The patient does not appear to be in a third- degree block, instead she appears to be in sinus bradycardia with occasional bigeminy and trigeminy. There is concern that the patient might be developing sick sinus syndrome given her advanced age. Therefore, it is recommended that the patient's atenolol be held tomorrow and see how she tolerates. It should be mentioned that she did take her atenolol this morning. The patient then can be sent home if needed on atenolol every other day to taper to avoid rebound tachycardia. It is recommended that the patient continue lisinopril and if her blood pressure remains elevated, we can add Norvasc instead of a beta-kathleen. In addition, an echo has been ordered by Dr. Nevarez. The patient would also benefit from an outpatient stress test. The patient is established with Dr. Jean. 2. AVR due to stenosis. The patient had a TAVR, valve replaced in 2005. An echo has been ordered for further evaluation. 3. Ventricular tachycardia. When discussing the history, the patient does not recall this history, but she will be placed on tele either way. Her electrolytes will be monitored. 4. Hypertension. As mentioned above, the patient is currently on lisinopril and atenolol, but we will be holding the atenolol with plans to stop with or without titrating. We will continue the patient's lisinopril. If she remains hypertensive, we will add Norvasc. 5. Diverticulitis. The patient has no acute signs of diverticulitis. 6. Coronary artery disease. The patient carries a history of cardiovascular disease. We will continue the patient's aspirin. She is not on statins as she does not tolerate them, but as mentioned above, her lipids were drawn and appeared to be in the acceptable range. We will continue the patient's aspirin. The patient would benefit from an outpatient stress test. 7. Asthma. The patient carries a history of asthma, but is currently not on medications for this. The patient reports this is why she sees Dr. Reeves. She is fearful of developing asthma as her father at 49 due to complications of asthma. We will provide supportive care. 8. Peripheral vascular disease. The patient has a history of peripheral vascular disease, status post stents to right leg. We will continue the patient 's aspirin. She should follow up with her vascular surgeon as needed. 9. FEN: The patient will be provided with a heart-healthy, caffeine-free diet. 10. Code status: The patient is a full code. 11. DVT prophylaxis: Based on the DVT Risk Assessment, the patient is high risk. I will order subcu heparin. TIME SPENT: Approximately 65 minutes was spent on this admission, greater than half the time was spent with the patient obtaining my history, performing physical exam, and reviewing my plan of care. This case has also been reviewed with my attending, Dr. Fong, who is in agreement with my plan of care. HEMA RAJAN, REED [id number]/[facility] #: [id number] TRAVIS
[2018-12-11] MEDS: Gabapentin CAP(*) 100 MG PO SCH (20:50)
--- NOTE | 2018-12-11 22:23 | ECHO ---
*[facility]* [place] [address] Fax #: [phone] Transthoracic Echocardiogram Patient: Jhonathan Merida : 1930 Study Date: 12/11/2018 Age: 88 Gender: F HR: 53 bpm Height: 66 in /167.6 cm BSA: 1.5 m^2 Weight: 101.8 lb /46.3 kg BMI: 16.5 kg/m^2 *Crew Leader: * Serena Escalona RDCS RN *Referring Physician: * Jason Nevarez MD *Reading Physician: * Jason Nevarez MD Indications: Murmur. SOB. Valvular disease. History: Coronary artery disease. Rheumatic fever. Risk factors: Hypertension. Dyslipidemia. Labs, prior tests, procedures, and surgery: Aortic valve replacement with a 23 mmBiocor porcine valve. Conclusions Summary: - Left ventricle: Systolic function is normal. The estimated ejection fraction is 65-70%. Systolic function is unchanged from the study of July 2018. Features are consistent with a pseudonormal left ventricular filling pattern, with concomitant abnormal relaxation and increased filling pressure (grade 2 diastolic dysfunction). - Left atrium: The atrium is severely dilated. - Mitral valve: Moderate prolapse with the posterior leaflet more involved than the anterior leaflet. Prolapse. Possible flail motion involving the posterior leaflet. The findings are consistent with mild stenosis. There is moderate to severe regurgitation, with multiple jets, directed centrally and along the left atrial wall. Regurgitation has increased in comparison with the study of July 2018. The regurgitant PISA radius is 0.8 cm. The effective regurgitant orifice (PISA) is 0.2 cm^2. The regurgitant volume (PISA) is 44 ml. - Aortic valve: There is a bioprosthetic valve. The peak systolic velocity is 2.56 m/sec. The mean systolic gradient is 14.0 mm Hg. The peak systolic gradient is 26.0 mm Hg. The LVOT to aortic valve VTI ratio is 0.53. The valve area by the velocity-time integral method is 1.40 cm^2. The valve area by the peak velocity method is 1.20 cm^2. - Tricuspid valve: There is mild-moderate regurgitation. - Pulmonary arteries: Systolic pressure is mildly to moderately increased, estimated to be 42 mm Hg. Pulmonary artery pressure has increased from the study of July 2018. Study data: Transthoracic echocardiogram. Procedure: Transthoracic echocardiography was performed. Image quality was good. Complete 2D, spectral Doppler, and color flow Doppler. Location: Bedside. Patient status: Inpatient. Patient room number: ED 10. The previous study was not available, so comparison is made to the report of July 2018. Rhythm: Bradycardia. Frequent PVCs including bigeminy. Findings Left ventricle: The cavity size is normal. Wall thickness is normal. Systolic function is normal. The estimated ejection fraction is 65-70%. Systolic function is unchanged from the study of July 2018. Wall motion is normal; there are no regional wall motion abnormalities. Features are consistent with a pseudonormal left ventricular filling pattern, with concomitant abnormal relaxation and increased filling pressure (grade 2 diastolic dysfunction). Right ventricle: The cavity size is normal. Systolic function is normal. Left atrium: The atrium is severely dilated. Right atrium: The atrium is mildly dilated. Mitral valve: The leaflets are moderately thickened. Moderate prolapse with the posterior leaflet more involved than the anterior leaflet. Prolapse. Possible flail motion involving the posterior leaflet. The findings are consistent with mild stenosis. There is moderate to severe regurgitation, with multiple jets, directed centrally and along the left atrial wall. Regurgitation has increased in comparison with the study of July 2018. Aortic valve: Not well visualized. There is a bioprosthetic valve. The findings are consistent with very mild stenosis. There is no regurgitation. The aortic valve replacement appears to be functioning normally. Tricuspid valve: The leaflets are mildly thickened. There is no evidence of stenosis. There is mild-moderate regurgitation. Pulmonic valve: Not well visualized. There is no evidence of stenosis. There is no significant regurgitation. Aorta: Aortic root: The aortic root is not dilated. Ascending aorta: The ascending aorta is poorly visualized. Aortic arch: The aortic arch is not dilated. Pericardium: There is no pericardial effusion. Pulmonary arteries: Not well visualized. Systolic pressure is mildly to moderately increased, estimated to be 42 mm Hg. Pulmonary artery pressure has increased from the study of July 2018. Systemic veins: Inferior vena cava: The vessel is normal in size. There is (>= 50%) respiratory change in the IVC dimension. Measurements Left ventricle Value Ref Aortic valve continued Value Ref ADDY, LAX 4.7 cm 3.8 - Jhonathan diam/bsa, ED 1.2 cm/m^2 ---- 5.2 Peak v, S 2.56 m/sec ---- ESD, LAX 2.2 cm 2.2 - VTI, S 53.9 cm ---- 3.5 Mean grad, S 14.0 mm Hg ---- FS, LAX (H) 53 % 27 - 45 Peak grad, S 26.0 mm Hg ---- PW, ED 0.9 cm 0.6 - LVOT/AV, VTI ratio 0.53 ---- 0.9 MELANIE, VTI 1.40 cm^2 ---- IVS/PW, ED 0.95 -------- MELANIE, Vmax 1.20 cm^2 ---- E', lat jhonathan, TDI (L) 9.2 cm/sec >=10.0 E/e', lat jhonathan, TDI 14 -------- Mitral valve Value Ref E', med jhonathan, TDI (L) 5.7 cm/sec >=7.0 Peak E 1.33 m/sec ---- E/e', med jhonathan, TDI 23 -------- Peak A 0.75 m/sec --- - E', avg, TDI 7.5 cm/sec -------- Decel time 269 ms --- - E/e', avg, TDI (H) 18 <=14 PHT 67 ms ---- Mean grad, D 4.0 mm Hg ---- LVOT Value Ref Peak grad, D 12.0 mm Hg ---- Diam, S 1.80 cm -------- Peak E/A ratio 1.8 ---- Area 2.5 cm^2 -------- MVA, PHT 3.3 cm^2 ---- Peak aure, S 1.17 m/sec -------- ERO, PISA 0.2 cm^2 ---- VTI, S 28.8 cm -------- MR vol, PISA 44 ml ---- Peak grad, S 5 mm Hg -------- MR fraction, PISA 38 % ---- Mean grad, S 3 mm Hg -------- SV 73 ml -------- Pulmonic valve Value Ref SV/bsa 49 ml/m^2 -------- Peak v, S 0.72 m/sec ---- Peak grad, S 2.0 mm Hg ---- Ventricular septum Value Ref IVS, ED 0.9 cm 0.6 - Tricuspid valve Value Ref 0.9 Peak RV-RA grad, S 39 mm Hg ---- Max TR aure 3.14 m/sec ---- Right ventricle Value Ref ADDY, LAX 2.6 cm -------- Aortic root Value Ref ADDY minor ax, A4C 3.4 cm 1.9 - Root diam 2.9 cm <3.8 mid 3.5 Root max diam, ED 2.9 cm <3.8 Pressure, S 42 mm Hg -------- Aortic arch Value Ref Left atrium Value Ref Arch diam 2.2 cm ---- ML dim, A4C 5.5 cm -------- SI dim, A4C 6.0 cm -------- Decending aorta Value Ref Vol/bsa, ES, 1-p (H) 77 ml/m^2 11 - 40 Jose peak aure 0.63 m/sec ---- A4C Vol/bsa, ES, A/L (H) 78 ml/m^2 16 - 34 Pulmonary artery Value Ref Pressure, S 40.0 mm Hg ---- Right atrium Value Ref SI dim, ES (H) 5.4 cm 3.4 - Inferior vena cava Value Ref 5.3 Diam 1.3 cm ---- ML dim, ES, A4C 3.5 cm 2.6 - 4.4 SI dim, ES, A4C (H) 5.4 cm 3.4 - 5.3 SI dim/bsa, ES, A4C (H) 3.6 cm/m^2 1.9 - 3.1 Estimated RAP 3 mm Hg -------- Aortic valve Value Ref Jhonathan diam, ED 1.8 cm -------- Legend: (L) and (H) salena values outside specified reference range. Prepared and electronically signed by Jason Nevarez MD 12/11/2018 22:23
[2018-12-12] MEDS: Heparin VIAL(*) 5000 UNITS/ML VIAL (FIVE THOUSAND) SUBCUT SCH (04:52)
[2018-12-12 06:58] LABS: ABS Eosinophils 0.1 10^3/ul (0-0.6); ABS Lymphocytes 0.6 10^3/ul (1.0-4.8); ABS Monocytes 0.5 10^3/ul (0-0.8); ABS Neutrophils 3.8 10^3/ul (1.5-7.7); Eosinophil % 2.5 %; Hematocrit 38 % (35-47); Hemoglobin 13.3 g/dL (12.0-16.0); Lymphocyte % 11.8 %; Mean Corpuscular HGB Conc 35 g/dL (31-36); Mean Corpuscular Hemoglobin 35 pg (27-31); Mean Corpuscular Volume 99 fL (80-97); Mean Platelet Volume 9.7 fL (7.4-10.4); Platelet Count 118 10^3/uL (150-450); Red Blood Count 3.85 10^6 /uL (3.70-4.87); Red Cell Distribution Width 13 % (10-15)
[2018-12-12 07:15] LABS: Calcium 9.2 mg/dL (8.6-10.3); EGFR African American 88.4 (>60); EGFR Non-African American 73.1 (>60); Potassium 3.9 mmol/L (3.5-5.0)
[2018-12-12] MEDS: Multivitamins/Minerals TAB PO SCH (08:30)
[2018-12-12] MEDS: Cyanocobalamin TAB* 500 MCG PO SCH (08:30)
[2018-12-12] MEDS: Cholecalciferol TAB* 1000 UNITS PO SCH (08:31)
[2018-12-12] MEDS: Aspirin EC TAB* 81 MG TAB.EC PO SCH (08:31)
[2018-12-12] MEDS ORDERED: Potassium Chlor TAB* 10 MEQ TAB.ER PO ONE (08:38)
[2018-12-12] MEDS ORDERED: Lisinopril TAB* 10 MG PO SCH (09:00)
[2018-12-12] MEDS ORDERED: Potassium Chloride* LIQUID 20 MEQ/15 ML UDC PO ONE (12:13)
--- NOTE | 2018-12-12 17:59 | PN ---
Subjective Date of Service: 12/12/18 Interval History: No overnight events. AM heart rate 39 but patient asymptomatic. On exam, up to 50s. Denies all symptoms. Would like to return home to her cat. States she is a minimalist for medical interventions. Objective Active Medications: Aspirin (Aspirin Ec Tab*) 81 mg PO DAILY [facility] Last Admin: 12/12/18 08:31 Dose: 81 mg Cholecalciferol (Vitamin D Tab*) 2,000 units PO DAILY [facility] Last Admin: 12/12/18 08:31 Dose: 2,000 units Cyanocobalamin (Vitamin B12 Tab*) 1,000 mcg PO DAILY [facility] Last Admin: 12/12/18 08:30 Dose: 1,000 mcg Enoxaparin Sodium (Lovenox(*)) 40 mg SUBCUT BEDTIME LYNDSEY Gabapentin (Neurontin Cap(*)) 100 mg PO BEDTIME [facility] Last Admin: 12/11/18 20:50 Dose: 100 mg Lisinopril (Prinivil Tab*) 5 mg PO DAILY [facility] Multivitamins/Minerals (Theragran/Minerals Tab*) 1 tab PO DAILY [facility] Last Admin: 12/12/18 08:30 Dose: 1 tab Vital Signs - 8 hr 12/12/18 12/12/18 11:21 15:46 Temperature 97.6 F 99.4 F Pulse Rate 56 62 Respiratory 16 16 Rate Blood Pressure 143/60 150/62 (mmHg) O2 Sat by Pulse 97 97 Oximetry Oxygen Devices in Use Now: None Appearance: elderly, frail-apprearing woman in NAD, alert and interactive Ears/Nose/Mouth/Throat: Clear Oropharnyx, Mucous Membranes Moist Neck: NL Appearance and Movements; NL JVP Respiratory: Clear to Auscultation Cardiovascular: - - bradycardia, reg rhythm, no mgr Extremities: No Edema Neurological: Alert and Oriented x 3 Result Diagrams: 12/12/18 06:41 12/12/18 06:41 Assess/Plan/Problems-Billing 88W with s/p AVR 2005, HTN, CAD, and PVD, who was referred from pulmonology clinic for asymptommatic bradycardia. Found in ER with bradycardia, bigeminy and trigeminy on EKG, now off atenolol and being monitored on telemetry. - Patient Problems (1) Bradycardia Comment: No symptoms. Sinus rhythm. - atenolol stopped, monitor on tele (2) Hypertension Comment: - now on lisinopril 5mg - avoid beta-blockers (3) Claudication in peripheral vascular disease Comment: s/p stents - cont aspirin - may be why pt takes gabapentin? - will need vascular f/u on discharge
[2018-12-12] MEDS: Gabapentin CAP(*) 100 MG PO SCH (20:12)
[2018-12-12] MEDS: Enoxaparin(*) 40 MG/0.4 ML SYR SUBCUT SCH (20:13)
[2018-12-13 07:12] LABS: BUN/Creatinine Ratio 26.9 (8-20); Calcium 9.1 mg/dL (8.6-10.3); EGFR African American 84.5 (>60); EGFR Non-African American 69.9 (>60); Magnesium 1.9 mg/dL (1.9-2.7); Potassium 4.3 mmol/L (3.5-5.0)
[2018-12-13] MEDS: Aspirin EC TAB* 81 MG TAB.EC PO SCH (09:08)
[2018-12-13] MEDS: Cholecalciferol TAB* 1000 UNITS PO SCH (09:08)
[2018-12-13] MEDS: Multivitamins/Minerals TAB PO SCH (09:08)
[2018-12-13] MEDS: Cyanocobalamin TAB* 500 MCG PO SCH (09:09)
[2018-12-13] MEDS: Lisinopril TAB* 5 MG PO SCH (09:09)
[2018-12-13] MEDS ORDERED: Magnesium Sulfate 1 GM IV* 1 GM/100 ML BAG IV ONE (12:05)
[2018-12-13] MEDS ORDERED: Amiodarone TAB* 200 MG PO ONE (12:08)
[2018-12-13] MEDS: Potassium Chlor TAB* 20 MEQ TAB.ER PO SCH (13:43)
--- NOTE | 2018-12-13 15:25 | PN ---
<Tyree Goeva - Last Filed: 12/13/18 15:16> Subjective Date of Service: 12/13/18 Interval History: Patient has no any complains. No SOB, lightheadedness, sweating and cold extremities. HR in 60-70. Cardiology consulted and want work up for PVC seen on telemetry. Gave one dose of amiodarone to see if aborts PVC or not. Objective Active Medications: Aspirin (Aspirin Ec Tab*) 81 mg PO DAILY [facility] Last Admin: 12/13/18 09:08 Dose: 81 mg Cholecalciferol (Vitamin D Tab*) 2,000 units PO DAILY [facility] Last Admin: 12/13/18 09:08 Dose: 2,000 units Cyanocobalamin (Vitamin B12 Tab*) 1,000 mcg PO DAILY [facility] Last Admin: 12/13/18 09:09 Dose: 1,000 mcg Enoxaparin Sodium (Lovenox(*)) 40 mg SUBCUT BEDTIME [facility] Last Admin: 12/12/18 20:13 Dose: 40 mg Gabapentin (Neurontin Cap(*)) 100 mg PO BEDTIME [facility] Last Admin: 12/12/18 20:12 Dose: 100 mg Lisinopril (Prinivil Tab*) 5 mg PO DAILY [facility] Last Admin: 12/13/18 09:09 Dose: 5 mg Multivitamins/Minerals (Theragran/Minerals Tab*) 1 tab PO DAILY [facility] Last Admin: 12/13/18 09:08 Dose: 1 tab Potassium Chloride (Klor Con Er Tab*) 20 meq PO DAILY [facility] Last Admin: 12/13/18 13:43 Dose: 20 meq Vital Signs - 8 hr 12/13/18 08:09 Temperature 97.3 F Pulse Rate 52 Respiratory 16 Rate Blood Pressure 122/55 (mmHg) O2 Sat by Pulse 97 Oximetry Oxygen Devices in Use Now: None Exam: Patient was sitting on her bed and having her breakfast. HEENT: Normocephalic, Atraumatic. Eyes PERRLA. Heart: Normal heart sound heard with no any murmur or gallop. Lungs: Normal vesicular sound heard. Abdomen: Soft, nontender and nondistended. Normal bowel sound heard. Extremities: No any swelling Neuro: Alert, oriented and conscious. Moving all 4 extremities. Result Diagrams: 12/12/18 06:41 07/28/19 06:44 Assess/Plan/Problems-Billing 88W with s/p AVR 2006, HTN, CAD, and PVD, who was referred from pulmonology clinic for asymptommatic bradycardia. Found in ER with bradycardia, bigeminy and trigeminy on EKG, now off atenolol and being monitored on telemetry. PVC noted and one dose given to see the response. - Patient Problems (1) Bradycardia Current Visit: Yes Status: Acute Code(s): R00.1 - BRADYCARDIA, UNSPECIFIED SNOMED Code(s): 87707859 Comment: No symptoms. Sinus rhythm. - atenolol stopped, monitor on tele (2) PVCs (premature ventricular contractions) Current Visit: Yes Status: Acute Code(s): I49.3 - VENTRICULAR PREMATURE DEPOLARIZATION SNOMED Code(s): 53822571 Comment: Noted in telemetry. Cardio consulted. 1 dose of amiodarone given. Monitor for any bradycardia. Plan: stress test tomorrow. (3) Hypertension Current Visit: Yes Status: Acute Code(s): I10 - ESSENTIAL (PRIMARY) HYPERTENSION SNOMED Code(s): 13784494 Comment: - now on lisinopril 5mg - avoid beta-blockers (4) Claudication in peripheral vascular disease Current Visit: Yes Status: Acute Code(s): I73.9 - PERIPHERAL VASCULAR DISEASE, UNSPECIFIED SNOMED Code(s): 33456231 Comment: s/p stents - cont aspirin - may be why pt takes gabapentin? - will need vascular f/u on discharge (5) DVT prophylaxis Current Visit: Yes Status: Acute Code(s): Z29.9 - ENCOUNTER FOR PROPHYLACTIC MEASURES, UNSPECIFIED SNOMED Code(s): 082383795 Comment: On lovenox. (6) Full code status Current Visit: Yes Status: Acute Code(s): Z78.9 - OTHER SPECIFIED HEALTH STATUS SNOMED Code(s): 634618953 Status and Disposition: Medicine inpatient Attending: Minnie Young <Minnie Young - Last Filed: 12/13/18 18:20> Objective Active Medications: Aspirin (Aspirin Ec Tab*) 81 mg PO DAILY [facility] Last Admin: 12/13/18 09:08 Dose: 81 mg Cholecalciferol (Vitamin D Tab*) 2,000 units PO DAILY [facility] Last Admin: 12/13/18 09:08 Dose: 2,000 units Cyanocobalamin (Vitamin B12 Tab*) 1,000 mcg PO DAILY [facility] Last Admin: 12/13/18 09:09 Dose: 1,000 mcg Enoxaparin Sodium (Lovenox(*)) 40 mg SUBCUT BEDTIME [facility] Last Admin: 12/12/18 20:13 Dose: 40 mg Gabapentin (Neurontin Cap(*)) 100 mg PO BEDTIME [facility] Last Admin: 12/12/18 20:12 Dose: 100 mg Lisinopril (Prinivil Tab*) 5 mg PO DAILY [facility] Last Admin: 12/13/18 09:09 Dose: 5 mg Multivitamins/Minerals (Theragran/Minerals Tab*) 1 tab PO DAILY [facility] Last Admin: 12/13/18 09:08 Dose: 1 tab Potassium Chloride (Klor Con Er Tab*) 20 meq PO DAILY [facility] Last Admin: 12/13/18 13:43 Dose: 20 meq Vital Signs - 8 hr 12/13/18 15:15 Temperature 97.9 F Pulse Rate 61 Respiratory 20 Rate Blood Pressure 139/48 (mmHg) O2 Sat by Pulse 97 Oximetry Result Diagrams: 12/12/18 06:41 12/13/18 06:44 Assess/Plan/Problems-Billing No significant overnight events. High PVC burden on tele. Pt denies light headedness, palpitations, chest pain. frail-appearing elderly woman in NAD, sitting on side of bed eating breakfast rrr no mgr ctab soft ntnd no LE edema 88W with s/p AVR 2005, mitral regurgitation, HTN, CAD, and PVD, who was referred from pulmonology clinic for asymptommatic bradycardia. Found in ER with bradycardia, bigeminy and trigeminy on EKG, now off atenolol and being monitored on telemetry, with significant PVC burden. - appreciate cardiology recommendations - for stress tomorrow - ordered by cards - s/p one dose amiodarone 12/13 - follow response - avoid rate-lowering medications Attestation Documenting Resident: Jeferson Supervising Physician: Hannah Attestation: This service has been performed in part by a resident under the direction of a teaching physician.IHannah, performed the service, or was physically present during the critical, or noel portions of the service, furnished by the resident. I participated in the management of the patient.
[2018-12-13] MEDS: Gabapentin CAP(*) 100 MG PO SCH (20:13)
[2018-12-13] MEDS: Enoxaparin(*) 40 MG/0.4 ML SYR SUBCUT SCH (20:14)
[2018-12-14] MEDS: Cholecalciferol TAB* 1000 UNITS PO SCH (08:09)
[2018-12-14] MEDS: Lisinopril TAB* 5 MG PO SCH (08:09)
[2018-12-14] MEDS: Multivitamins/Minerals TAB PO SCH (08:09)
[2018-12-14] MEDS: Aspirin EC TAB* 81 MG TAB.EC PO SCH (08:09)
[2018-12-14] MEDS: Cyanocobalamin TAB* 500 MCG PO SCH (08:09)
[2018-12-14] MEDS: Potassium Chlor TAB* 20 MEQ TAB.ER PO SCH (08:09)
[2018-12-14] MEDS ORDERED: Regadenoson* 0.4 MG/5 ML SYRINGE ONE (13:29)
[2018-12-14] MEDS ORDERED: Aminophylline IV* 25 MG/ML 10 ML VIAL ONE (13:29)
--- NOTE | 2018-12-14 16:06 | PN ---
Subjective Date of Service: 12/14/18 Interval History: HD #3 on 12.14 88F PMH AVS s/p AVR, with ongoing mod-severe MR, PVD s/p prior PCI, HTN, distant hx of colon cancer who presented with REICH from pulm clinic with sinus bradycardia, though to be med related. Overnight, no acute events, VSS, tele reviewed, persistent bigeminy no e.o block Pt seen in the morning, he stress test interuptted which is frustrating but otherwise no palps no chest pain no SOB. Would like to go home. Voiding freely ltolerating diet. Objective Active Medications: Aspirin (Aspirin Ec Tab*) 81 mg PO DAILY [facility] Last Admin: 12/14/18 08:09 Dose: 81 mg Cholecalciferol (Vitamin D Tab*) 2,000 units PO DAILY [facility] Last Admin: 12/14/18 08:09 Dose: 2,000 units Cyanocobalamin (Vitamin B12 Tab*) 1,000 mcg PO DAILY [facility] Last Admin: 12/14/18 08:09 Dose: 1,000 mcg Enoxaparin Sodium (Lovenox(*)) 40 mg SUBCUT BEDTIME [facility] Last Admin: 12/13/18 20:14 Dose: 40 mg Gabapentin (Neurontin Cap(*)) 100 mg PO BEDTIME [facility] Last Admin: 12/13/18 20:13 Dose: 100 mg Lisinopril (Prinivil Tab*) 5 mg PO DAILY [facility] Last Admin: 12/14/18 08:09 Dose: 5 mg Multivitamins/Minerals (Theragran/Minerals Tab*) 1 tab PO DAILY [facility] Last Admin: 12/14/18 08:09 Dose: 1 tab Potassium Chloride (Klor Con Er Tab*) 20 meq PO DAILY [facility] Last Admin: 12/14/18 08:09 Dose: 20 meq Vital Signs - 8 hr 12/14/18 11:15 Temperature 97.5 F Pulse Rate 82 Respiratory 19 Rate Blood Pressure 114/88 (mmHg) O2 Sat by Pulse 99 Oximetry Oxygen Devices in Use Now: None Appearance: Frail woman in NAD Eyes: No Scleral Icterus, PERRLA Ears/Nose/Mouth/Throat: NL Teeth, Lips, Gums Neck: NL Appearance and Movements; NL JVP, Trachea Midline Respiratory: Symmetrical Chest Expansion and Respiratory Effort, Clear to Auscultation Cardiovascular: - - Reg irreg, 3/6 MAXX, 1/6 diastolic murmur Abdominal: NL Sounds; No Tenderness; No Distention Lymphatic: No Cervical Adenopathy Extremities: No Edema Skin: No Rash or Ulcers Neurological: Alert and Oriented x 3, - - Needs rfrequent repeating Result Diagrams: 12/12/18 06:41 12/13/18 06:44 Assess/Plan/Problems-Billing 88W with s/p AVR 2006, mitral regurgitation, HTN, CAD, and PVD, who was referred from pulmonology clinic for asymptommatic bradycardia. Found in ER with bradycardia, bigeminy and trigeminy on EKG, now off atenolol and being monitored on telemetry, with significant PVC burden, though stress neg, stable for d/c. - Patient Problems (1) Mitral regurgitation and aortic stenosis Current Visit: Yes Status: Acute Code(s): I08.0 - RHEUMATIC DISORDERS OF BOTH MITRAL AND AORTIC VALVES SNOMED Code(s): 122330536 Comment: -MR has progressed likely contributing to underlying ectopy -No BB, no clear indication of help with amio -DC to home off meds (2) Bradycardia Current Visit: Yes Status: Acute Code(s): R00.1 - BRADYCARDIA, UNSPECIFIED SNOMED Code(s): 74541816 Comment: No symptoms. Sinus rhythm. - atenolol stopped, monitor on tele (3) Claudication in peripheral vascular disease Current Visit: Yes Status: Acute Code(s): I73.9 - PERIPHERAL VASCULAR DISEASE, UNSPECIFIED SNOMED Code(s): 34603428 Comment: s/p stents - cont aspirin - may be why pt takes gabapentin? (4) Hypertension Current Visit: Yes Status: Acute Code(s): I10 - ESSENTIAL (PRIMARY) HYPERTENSION SNOMED Code(s): 59384056 Comment: - now on lisinopril 5mg - avoid beta-blockers (5) DVT prophylaxis Current Visit: Yes Status: Acute Code(s): Z29.9 - ENCOUNTER FOR PROPHYLACTIC MEASURES, UNSPECIFIED SNOMED Code(s): 133720274 Comment: On lovenox. (6) Full code status Current Visit: Yes Status: Acute Code(s): Z78.9 - OTHER SPECIFIED HEALTH STATUS SNOMED Code(s): 184001156 Status and Disposition: DC to home
[2018-12-14 16:16] VITALS: BP 130/47
--- NOTE | 2018-12-14 20:44 | DS ---
CC: Dr. Arzola; Dr. Pilo Jean * DISCHARGE SUMMARY: DATE OF ADMISSION: 12/11/18 DATE OF DISCHARGE: 12/14/18 PRIMARY CARE PROVIDER: Dr. Arzola. DISPOSITION AT THE TIME OF DISCHARGE: To home and stable. PRIMARY DIAGNOSES: 1. Shortness of breath. 2. Sinus bradycardia. SECONDARY DIAGNOSES: 1. Aortic stenosis, status post AVR in 2005. 2. Ventricular tachycardia. 3. Hypertension. 4. Coronary artery disease. 5. Asthma. 6. Peripheral vascular disease. 7. Distant history of colon cancer. MEDICATIONS ON DISCHARGE: 1. Lisinopril 5 p.o. q.h.s. 2. Vitamin B12 at 1000 mcg p.o. daily. 3. Vitamin D 2000 units p.o. daily. 4. Aspirin 81 mg p.o. daily. 5. Gabapentin 100 mg p.o. q.h.s. 6. Multivitamin daily. 7. Calcium carbonate 1000 mg p.o. b.i.d. Changes to medications on this hospitalization include: 1. Discontinuation of atenolol 25 mg p.o. daily. 2. Dose lowering of lisinopril from 20 to 5 mg p.o. daily. HISTORY OF PRESENT ILLNESS AND HOSPITAL COURSE: This is an 88-year- old female with past medical history as per above who usually follows with Dr. Jean of Cardiology, who presented to the emergency room after being seen in Dr. Reeves' s office where she had been getting worked up for dyspnea on exertion and shortness of breath. She was noted in the pulmonology clinic to be bradycardic to the 30s. In the ER, she was noted to have heart rate in the 30s with occasional bigeminy and trigeminy. There was a concern for third-degree heart block. Therefore, Cardiology is consulted who evaluated the patient and ultimately did not feel that this is third-degree heart block, but felt that it is more consistent with sinus bradycardia with frequent ectopy. He admitted the patient for monitoring and to ruling out sick sinus syndrome. Her hospital course by problem is as follows: 1. Sinus bradycardia. The patient's heart rate increased to 80s with [place] bigeminy and trigeminy after discontinuation of atenolol and the patient's symptoms improved significantly. Because she continued to have persistent bigeminy and trigeminy, Cardiology requested that she undergo a stress test, which was done on 12/14/18 which ultimately was low risk. Briefly, the patient was started on amiodarone, although it seemed to have no effect on her underlying [place] rhythm, which is likely exacerbated by her valvular disease. Overall, the patient is asymptomatic. Her blood pressure remained stable and she had no palpitations or syncopal signs and so Cardiology recommended that she be discharged home off beta- blockers or rhythm control agents with followup with Cardiology to determine next steps. 2. Dyspnea on exertion. This is most likely secondary to sinus bradycardia and medication induced. Continued workup can be proceeded as outpatient. 3. AVR secondary to stenosis. The patient did have a TAVR in 2005. A repeat echocardiogram was done on 12/11/18, which showed preserved ejection fraction, diastolic dysfunction grade 2, likely mitral valve prolapse, and slow motion involving the posterior leaflet consistent with mild stenosis and moderate to severe regurgitation, which has increased compared with studies in 2019. Aortic valve shows bioprosthetic valve with very mild stenosis. Tricuspid and pulmonic are unremarkable. Ultimately, the patient has severe mitral regurgitation and may need to be evaluated for definitive management via MitraClip or other procedures as deemed appropriate by Cardiology if her symptoms progress or if the patient becomes symptomatic from her underlying ectopy. 4. Hypertension. The patient is on longstanding lisinopril and beta-kathleen, although she has been largely hypotensive here. Lisinopril was redosed to 5 mg with significant improvement. 5. PVD. The patient is on aspirin. She has history of stents. Is on nightly gabapentin. She may need vascular followup. There are persistent claudication symptoms. 6. History of colon cancer, distant. No evidence of recurrence, though does have subacute weight loss. The patient is getting this worked up as outpatient. 7. Coronary artery disease. The patient underwent stress test and no active ischemia. Continue on aspirin. Unable to be beta-blocked. Has allergy to STATIN. On day of discharge, the patient is ambulating, tolerating diet, voiding freely. Her physical exam is unremarkable. She is cleared by PT to return to home. DIAGNOSTIC STUDIES/LAB DATA: Labs are not performed on day of discharge and last labs on 12/13/18 show an unremarkable BMP. Imaging and studies done during this hospitalization include transthoracic echocardiogram on 12/11/18 with above findings. A chest x-ray on 12/11/18 unremarkable and a stress test done on 12/14/18 shows no ischemia. CONSULTANTS DURING THIS HOSPITALIZATION: Include Cardiology. FOLLOWUP: Items to follow up status post discharge: 1. [place] ectopy with bigeminy and trigeminy, most likely secondary to mitral valve, which shows progressive regurgitation. Followup with Cardiology scheduled on 12/21/18 to discuss appropriateness of any intervention, if any at all. 2. Sinus bradycardia. The patient has resolution of sinus bradycardia off atenolol. Continue to monitor. 3. Hypertension. Her lisinopril dose is changed to 5 mg from 20 mg given some hypotension here in the hospital. Follow up with primary care and dose adjustment as necessary. TIME SPENT: 45 minutes was spent on this discharge with more than half of that spent directly at the bedside counseling the patient providing direct patient care. Plan of care was discussed with the patient and family and they have no further questions and are amenable for the patient to be discharged to home. She is cleared by PT to do so and at baseline, lives independently and functions with performing all of her ADLs and some IADLs, although her son is there is in assistance on discharge. If there are any questions about the care provided during this hospitalization, please do not hesitate to reach or contact us. [id number]/[facility] #: [id number] TRAVIS
== END 2018-12-14 21:40 | disposition home or self-care (01) | DRG 310 ==
LOC: ED 11:24 → MEDTELE 12:22 → UNDOADMOB 12:22 → INTOOBSV 12-13 15:23 → OBSVTOIN 12-13 15:23
PROVIDERS: ADMIT Internal Medicine; ATTEND Internal Medicine
PROC: 4A02XM4 Measurement of Cardiac Total Activity, External Approach (ICD-10-PCS; principal; 2018-12-14)
PROC: 3E073KZ Introduction of Other Diagnostic Substance into Coronary Artery, Percutaneous Approach (ICD-10-PCS; 2018-12-14)
DX: R00.1 Bradycardia, unspecified (principal); I34.0 Nonrheumatic mitral (valve) insufficiency; I10 Essential (primary) hypertension; I25.10 Atherosclerotic heart disease of native coronary artery without angina pectoris; I73.9 Peripheral vascular disease, unspecified; K64.9 Unspecified hemorrhoids; G62.9 Polyneuropathy, unspecified; E78.00 Pure hypercholesterolemia, unspecified; M19.90 Unspecified osteoarthritis, unspecified site; I49.3 Ventricular premature depolarization; J44.9 Chronic obstructive pulmonary disease, unspecified; M79.7 Fibromyalgia; I47.2 Ventricular tachycardia; R06.02 Shortness of breath; R00.8 Other abnormalities of heart beat; Z85.038 Personal history of other malignant neoplasm of large intestine; Z85.828 Personal history of other malignant neoplasm of skin; Z98.42 Cataract extraction status, left eye; Z98.41 Cataract extraction status, right eye; Z95.820 Peripheral vascular angioplasty status with implants and grafts; Z88.8 Allergy status to other drugs, medicaments and biological substances; Z91.018 Allergy to other foods; Z82.49 Family history of ischemic heart disease and other diseases of the circulatory system; Z83.3 Family history of diabetes mellitus; Z82.5 Family history of asthma and other chronic lower respiratory diseases; Z80.7 Family history of other malignant neoplasms of lymphoid, hematopoietic and related tissues; Z87.891 Personal history of nicotine dependence; Z90.49 Acquired absence of other specified parts of digestive tract; Z87.442 Personal history of urinary calculi; Z95.3 Presence of xenogenic heart valve; Z79.82 Long term (current) use of aspirin
CPT/HCPCS: 36415; 71045; 78452; 80048; 80053; 80061; 82607; 83735; 84443; 84484; 85025; 85610; 93005; 93017; 93306; 99284; A9270-GY; A9502; G0378; G8978-GP-CK; G8979-GP-CI; J0280; J1644; J1650; J2785; J3475

== ENCOUNTER 2018-12-17 17:58 | Emergency (ER) | payer MEDICARE ==
--- NOTE | 2018-12-17 19:29 | UC ---
- HPI Summary HPI Summary: Patient complains of left breast/chest pain starting today. 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 Pain described as a stinging. No radiation. Denies fever, cough, sore throat, SOB, N/V/D, abdominal pain, change in urine, change in BM. History of recent discharge from [facility] after admission for bradycardia shortness of breath. Patient recently stopped atenolol which patient was taking for history of bigeminy. Recently change from lisinopril 20 mg daily to lisinopril 5 mg daily. Patient's son states patient has not yet made that change. Medical history is CAD, HTN, PAD, aortic stenosis, aVR 2005. 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 Chief Complaint: Pain, Left Onset/Duration: Started Hours Ago Timing: Constant Breast Associated Signs/Symptoms: Negative - Additional Pertinent History Primary Care Physician: MARCI - Allergy/Home Medications Allergies/Adverse Reactions: Allergies Allergy/AdvReac Type Severity Reaction Status Date / Time aspartame Allergy Unknown Verified 12/17/18 18:56 Reaction Details metoprolol Allergy Unknown Verified 12/17/18 18:56 Reaction Details pentoxifylline Allergy Unknown Verified 12/17/18 18:56 Reaction Details aspirin AdvReac Nausea Verified 12/11/18 13:32 atorvastatin [From Lipitor] AdvReac Leg Cramps Verified 12/17/18 18:56 clopidogrel [From Plavix] AdvReac GI Upset Verified 12/17/18 18:56 ezetimibe [From Zetia] AdvReac Leg Cramps Verified 12/17/18 18:56 niacin AdvReac Leg Cramps Verified 12/17/18 18:56 Eiaqfnk-Zup-Evn Reductase AdvReac Leg Cramps Verified 12/17/18 18:56 Inhibitor TRUVIA Allergy Unknown Unknown Uncoded 03/24/13 11:50 Reaction Details splenda Allergy Unknown Uncoded 03/24/13 11:50 Reaction Details PMH/Surg Hx/FS Hx/Imm Hx Cardiovascular History: Cardiac Disease, Hypertension - Surgical History Surgical History: Yes Surgery Procedure, Year, and Place: COLON RESECTION. AORTIC VALVE REPLACED 05/24- [place]- [address] [facility] [employer] PORCINE VALVE: [id number], CONDITIONAL FOR 1.5T TO 3.0 T MRI MAX SPATIAL GRADIENT LESS THAN OR EQUAL TO 3000 GAUSS/cm ( INFORMATION SCANNED INTO PT'S EMR). ANGIOPLASTY. HERNIA REPAIR Xs 2 -1998 & 2012. CATARACT. STENTS IN LEGS TO OPEN UP BLOODFLOW. CYSTS REMOVED FROM VARIOUS PARTS OF BODY - Family History Known Family History: Positive: Cardiac Disease, Hypertension - Social History Alcohol Use: None Substance Use Type: None Smoking Status (MU): Former Smoker Type: Cigarettes Amount Used/How Often: occasionally from age [age]. - Immunization History Most Recent Influenza Vaccination: 2012 Most Recent Tetanus Shot: 2009 Most Recent Pneumonia Vaccination: <5years Review of Systems All Other Systems Reviewed And Are Negative: Yes Constitutional: Positive: Negative Skin: Positive: Negative Eyes: Positive: Negative ENT: Positive: Negative Respiratory: Positive: Negative Cardiovascular: Positive: Chest Pain Gastrointestinal: Positive: Negative Genitourinary: Positive: Negative Motor: Positive: Negative Neurovascular: Positive: Negative Musculoskeletal: Positive: Negative Neurological: Positive: Negative Psychological: Positive: Negative Is Patient Immunocompromised?: Yes Physical Exam - Summary Physical Exam Summary: Left breast exam unremarkable. Chest pain not reproducible. Lung sounds clear to auscultation bilaterally. Irregular cardiac rhythm. Heart murmur. Triage Information Reviewed: Yes Appearance: Well-Appearing Vital Signs: Initial Vital Signs Temp 97.8 F 12/17/18 18:04 Pulse 63 12/17/18 18:04 Resp 18 12/17/18 18:04 BP 107/67 12/17/18 18:04 Pulse Ox 95 12/17/18 18:04 Vital Signs Reviewed: Yes Eye Exam: Normal ENT Exam: Normal Neck exam: Normal Respiratory Exam: Normal Cardiovascular: Positive: Other: Abdominal Exam: Normal Musculoskeletal Exam: Normal Neurological Exam: Normal Psychological Exam: Normal Psychological: Positive: Decreased Age Appropriate Behavior Breast Pain Course/Dx - Course Course Of Treatment: Patient complains of left breast/chest pain starting today. 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 Pain described as a stinging. No radiation. Chest pain resolved prior to arrival. Denies fever, cough, sore throat, SOB, N/V/D, abdominal pain, change in urine, change in BM. History of recent discharge from [facility] after admission for bradycardia shortness of breath. Patient recently stopped atenolol which patient was taking for history of bigeminy. Recently change from lisinopril 20 mg daily to lisinopril 5 mg daily. Patient's son states patient has not yet made that change. Medical history is CAD, HTN, PAD, aortic stenosis, aVR 2005. Vital signs within normal limits. Initial troponin 0.04. Second troponin 0.03. Creatinine 1.63 elevated from all prior measurements. Labs otherwise unremarkable. EKG sinus rhythm with bigeminy increased from EKG bigeminy . Patient likely was taking atenolol for bigeminy. Possible bigeminy has increased since stopping atenolol. Chest x-ray unremarkable. Discussed patient with hospitalist Dr. Acosta who agreed patient could be discharged home to follow-up with PCP regarding elevated creatinine of 1.63. - Diagnoses Provider Diagnoses: Atypical chest pain, Elevated serum creatinine Discharge - Sign-Out/Discharge Documenting (check all that apply): Patient Departure Patient Received Moderate/Deep Sedation with Procedure: No - Discharge Plan Condition: Stable Disposition: HOME Referrals: La Minor MD [Primary Care Provider] - Additional Instructions: Follow-up with primary care for further evaluation of elevated creatinine level. Return to the ED for any new or worsening symptoms. - Billing Disposition and Condition Condition: STABLE Disposition: Home
[2018-12-17 19:51] LABS: ABS Eosinophils 0.1 10^3/ul (0-0.6); ABS Lymphocytes 0.7 10^3/ul (1.0-4.8); ABS Monocytes 0.6 10^3/ul (0-0.8); Eosinophil % 1.9 %; Hematocrit 43 % (35-47); Hemoglobin 14.4 g/dL (12.0-16.0); Lymphocyte % 15.7 %; Mean Corpuscular HGB Conc 33 g/dL (31-36); Mean Corpuscular Hemoglobin 33 pg (27-31); Mean Corpuscular Volume 99 fL (80-97); Mean Platelet Volume 9.2 fL (7.4-10.4); Platelet Count 153 10^3/uL (150-450); Red Blood Count 4.33 10^6 /uL (3.70-4.87); Red Cell Distribution Width 13 % (10-15); White Blood Count 4.4 10^3/uL (3.5-10.8)
[2018-12-17 19:57] LABS: INR 1.04 (0.82-1.09)
[2018-12-17 20:10] LABS: ALT 16 U/L (7-52); AST 24 U/L (13-39); Albumin 4.3 g/dL (3.2-5.2); Albumin/Globulin Ratio 1.4 (1-3); Alkaline Phosphatase 67 U/L (34-104); Anion Gap 9 mmol/L (2-11); BUN/Creatinine Ratio 23.9 (8-20); Blood Urea Nitrogen 39 mg/dL (6-24); CO2 Carbon Dioxide 25 mmol/L (22-32); Calcium 10.7 mg/dL (8.6-10.3); Chloride 100 mmol/L (101-111); EGFR African American 36.1 (>60); EGFR Non-African American 29.8 (>60); Globulin 3.1 g/dL (2-4); Glucose 112 mg/dL (70-100); Magnesium 2.3 mg/dL (1.9-2.7); Potassium 4.3 mmol/L (3.5-5.0); Sodium 134 mmol/L (135-145); Total Protein 7.4 g/dL (6.4-8.9)
[2018-12-17 20:18] LABS: Troponin I 0.04 ng/mL (<0.04)
[2018-12-17] MEDS ORDERED: NS 0.9% 1000 ML** 1,000 ML IV SCH (21:00)
[2018-12-17 22:58] VITALS: BP 130/56
--- OUTSIDE RECORDS SUMMARY | 2018-12-18 01:22 | XMS REPORT | Continuity of Care Document ---
:1930 External Reference #:[id number] Author Name Vesta Medina Care Team Providers Name Role Phone La Arzola MD Primary Care Physician Unavailable Payers Date Identification Numbers Payment Provider Subscriber Effective: 2007 Policy Number: [id number] [employer] Gifty Merida PayID: [id number] [address] [address] Attn: [place] [address] Problems Active Problems Provider Date Chest pain Pilo Jean M.D., [facility], Onset: 03/08/2013 FASAZ Aortic valve disorder Pilo Jean M.D., [facility], Onset: 06/14/2013 FASNC Dyspnea Nancy Reeves MD Onset: 09/29/2015 Gastroesophageal reflux disease Nancy Reeves MD Onset: 09/29/2015 Allergic rhinitis Nancy Reeves MD Onset: 09/29/2015 Asthma without status asthmaticus Nancy Reeves MD Onset: 11/02/2015 Dizziness Linette Rich M.D. Onset: 07/02/2016 Mitral valve disorder Pilo Jean M.D., [facility], Onset: 04/29/2017 FASAZ Atherosclerosis of arteries of the [place] Katharine Green M.D. 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 [employer] ETOH Use Denies alcohol use Recreational Drug Use Never Used Drugs Tobacco Use Start: Unknown Patient is a former social smoker, quit End: Unknown smoker in Smoking Status Reviewed: 12/11/18 Patient is a former social smoker, quit smoker in Exercise Type/Frequency Exercises sporadically keep busy around [...] every Unknown 1000mcg day Tablets ER Ipratropium Horton spray 3 times Unknown 0.03% daily Solution [...] 1 puff every 6 3units R06.02 Nancy Lala, 09/29/2015 - hours as needed 07/27/2018 108(90Base) [...] po qd Unknown - Vitamin D3 04/10/2015 [id number] Tablets Medications Administered in Office Medication SIG Qnty Indications Ordering Provider Date Depomedrol 40MG Katia Jenkins M.D. 11/06/2017 Injection Depomedrol 40MG NIKKIE Raymond 12/11/2016 Injection Depomedrol 40MG Katia Jenkins M.D. 03/20/2016 Injection Inj, Regadenoson, 0.1 MG Pilo Jean M.D., 04/10/2015 [facility] Pilo Jean M.D., 04/10/2015 Injection [facility]ASH [...] Date Facility Test Result H/L Range Note Order 12/11/2018 [facility] In-House Echocardiogram <pending> CBC Auto 09/30/2017 [facility] White Blood Count 3.7 10^3/uL Normal 3.5-10.8 Diff [address] [place] [address] [phone] Red Blood Count 3.83 10^6/uL Low 4.0-5.4 Hemoglobin 13.2 g/dL Normal 12.0-16.0 Hematocrit 39 % Normal 35-47 Mean Corpuscular Volume 101 fL High 80-97 Mean Corpuscular Hemoglobin 35 pg High 27-31 Mean Corpuscular HGB Conc 34 g/dL Normal 31-36 Red Cell Distribution Width 13 % Normal 10.5-15 Platelet Count 151 10^3/uL Normal 150-450 Mean Platelet Volume 8.6 um3 Normal 7.4-10.4 Abs Neutrophils 2.2 10^3/uL Normal 1.5-7.7 Abs Lymphocytes 0.9 10^3/uL Low 1.0-4.8 Abs Monocytes 0.5 10^3/uL Normal 0-0.8 Abs Eosinophils 0.1 10^3/uL Normal 0-0.6 Abs Basophils 0 10^3/uL Normal 0-0.2 Abs Nucleated RBC 0 10^3/uL Granulocyte % 59.3 % Normal 38-83 Lymphocyte % 24.9 % Low 25-47 Monocyte % 12.5 % High 0-7 Eosinophil % 2.7 % Normal 0-6 Basophil % 0.6 % Normal 0-2 Nucleated Red Blood Cells % 0.1 BMP Basic 12/16/2014 [facility] Sodium 138 mmol/L Normal 133- 145 Metabolic Panel [address] ([address]) [place] [address] [phone] Potassium 4.1 mmol/L Normal 3.5-5.0 Chloride 101 mmol/L Normal 101-111 Co2 Carbon Dioxide 31 mmol/L Normal 22-32 Anion Gap 6 mmol/L Normal 2-11 Glucose 85 mg/dL Normal 70-100 Blood Urea Nitrogen 12 mg/dL Normal 6-24 Creatinine 0.92 mg/dL Normal 0.51-0.95 BUN/Creatinine Ratio 13.0 Normal 8-20 Calcium 10.6 mg/dL High 8.6-10.3 Egfr Non- 58.3 Normal >60 Egfr 75.0 Normal >60 1 Laboratory test 03/08/2013 [facility] Vitamin B12 456 pg/mL 180-914 finding [address] [place] [address] [phone] Folate > 24.8 ng/mL High 2-16 Basic Metabolic Panel 03/08/2013 [facility] Sodium 138 mmol/L 133-145 [address] [place] [address] [phone] Potassium 3.8 mmol/L 3.5-5.0 Chloride 103 mmol/L 101-111 Co2 Carbon Dioxide 29.0 mmol/L 22-32 Anion Gap 6.0 mmol/L 2-11 Glucose 108 mg/dL High 70-100 Blood Urea Nitrogen 16 mg/dL 6-24 Creatinine 0.80 mg/dL 0.50-1.40 BUN/Creatinine Ratio 20.0 8-20 Calcium 9.5 mg/dL 8.1-9.9 Egfr Non- 68.8 >60 Egfr 88.5 >60 2 1 Because ethnic data is not always [...] (or dialysis) Procedures Date Code Description Status 12/11/2018 21927 ECHO Transthorasic Realtime 2D W Doppler & Color Flow Hosp Completed 07/28/2018 49403 EKG Tracing & Interpretation Completed 07/21/2018 58659 ECHO Transthoracic, Real-Time 2D With Doppler And Color Completed Flow 07/21/2018 50620 ECHO Transthoracic, Real-Time 2D With Doppler And Color Completed Flow 11/06/2017 18841 Inject Tendon Sheath Or Ligament Aponeurosis Eg Plantar Completed Fascia 04/29/2017 14942 EKG Tracing & Interpretation Completed 04/22/2017 62260 ECHO Transthoracic, Real-Time 2D With Doppler And Color Completed Flow 12/11/2016 00686 Inject Tendon Sheath Or Ligament Aponeurosis Eg Plantar Completed Fascia 05/01/2016 88773 EKG Tracing & Interpretation Completed 04/23/2016 99882 ECHO Transthoracic, Real-Time 2D With Doppler And Color Completed Flow 03/20/2016 09505 Inject Tendon Sheath Or Ligament Aponeurosis Eg Plantar Completed Fascia 07/11/2015 36681 Spirometry Incl Graphic Record Completed 04/19/2015 84362 EKG Tracing & Interpretation Completed 04/12/2015 11294 ECHO Transthoracic, Real-Time 2D With Doppler And Color Completed Flow 04/10/2015 77784 Stress Test Completed 04/10/2015 49613 Myocardial Perfusion Imaging Tomographic (Spect) Multiple Completed Studies 06/06/2014 55429 EKG Tracing & Interpretation Completed 06/01/2014 05200 ECHO Transthoracic, Real-Time 2D With Doppler And Color Completed Flow 06/14/2013 20666 EKG Tracing & Interpretation Completed 06/04/2013 81945 ECHO Transthoracic, Real-Time 2D With Doppler And Color Completed Flow 03/08/2013 91784 EKG Tracing & Interpretation Completed 02/28/2013 72755 Treadmill Interp/Report Only Completed 02/28/2013 07002 Stress Test Supervsn W/Out I/R Completed 06/16/2012 47357 EKG Tracing & Interpretation Completed 06/12/2012 40672 ECHO Transthoracic, Real-Time 2D With Doppler And Color Completed Flow Encounters Type Date Location Provider Dx Diagnosis Office Visit 11/05/2018 [facility] Dermatology Keshav Live MD I87.2 Venous insufficiency 11:20a (chronic) (peripheral) L81.8 Other specified disorders of pigmentation Office Visit 10/14/2018 [facility] I70.223 [facility] [place] 11:30a Medicine Of Lauren Green M.D. arteries of extrm w rest pain, bilateral legs Office Visit 07/28/2018 [facility] Pilocat Hopper I34.0 Nonrheumatic mitral 2:15p Of Lauren Jean M.D., (valve) FAC, FASALAINA insufficiency Office Visit 12/11/2017 Pulmon[facility] And Nancy J45.909 Unspecified asthma , 11:30a Sleep Services Of MD Lala uncomplicated [facility] Office Visit 04/29/2017 [facility] Pilo Hopper I34.0 Nonrheumatic mitral 2:00p Of Lauren Jean M.D., (valve) FAC, FASNC insufficiency Office Visit 07/02/2016 [facility] Linette MVal R42 Dizziness and 11:00a Services Of laury Marquez M.D. Office Visit 05/27/2016 [facility] Nancy J45.909 Unspecified asthma , 1:15p Sleep Services Of MD Lala uncomplicated [facility] Office Visit 05/01/2016 [facility] Pilo Ward I35.8 Other nonrheumatic 10:45a Of [facility] Miguelina Jean, aortic valve FACC, FASNC disorders I25.10 Athscl heart disease of [place] coronary artery w/o ang pctrs Z95.2 Presence of prosthetic heart valve Office Visit 03/20/2016 Orth[facility] Katia M65.341 Trigger finger, 3:30p Services Of Miguelina Jenkins right ring finger C.M.A. Office Visit 11/02/2015 Pulmonology And Nancy J45.909 Unspecified 10:45a Sleep Services Of MD Lala asthma, [facility] uncomplicated J30.9 Allergic rhinitis, unspecified K21.9 Gastro-esophageal reflux disease without esophagitis Office Visit 09/29/2015 11:00a Pulmonology And Nancy R06.02 Shortness of Sleep Services Of MD Lala breath [facility] K21.9 Gastro-esophageal reflux disease without esophagitis J30.9 Allergic rhinitis, unspecified Office Visit 04/19/2015 1:45p [facility] Pilo Ward I35.8 Other nonrheumatic Of [facility] Miguelina Jean, aortic valve FACC, FASNC disorders Office Visit 06/06/2014 10:45a [facility] Pilocat Hopper 424.1 Aortic Valve Of [facility] Miguelina Jean, Disorder FACC, FASNC Office Visit 06/14/2013 1:15p [facility] Pilo Hopper 424.1 Aortic Valve Of [facility] Miguelina Jean, Disorder FACC, FASNC Office Visit 03/08/2013 10:15a [facility] Pilo Ward 786.50 Pain Chest Unspec Of [facility] Miguelina Jean, FACC, FASNC Office Visit 02/28/2013 7:14a [facility] Addi Anton, 786.51 Pain Precordial Assoc,gildardo Mcintyre Hospitalists 424.1 Aortic Valve Disorder 401.9 Hypertension Unspec 780.4 Dizziness & Giddiness Office Visit 02/27/2013 7:14a [facility] Addi Anton, 786.51 Pain Precordial Assoc,gildardo Mcintyre Hospitalists 424.1 Aortic Valve Disorder 401.9 Hypertension Unspec 780.4 Dizziness & Giddiness Office Visit 02/08/2013 [facility] Ben Obregon 560.9 Intestinal 8:54a Assocgildardo II, M.D. Obstruction Hospitalists Unspec 401.9 Hypertension Unspec 789.03 Pain Abdominal Right Lower Quadrant Office Visit 02/06/2013 [facility] Eyal 560.9 Intestinal 8:53a Assgildardo hernandes M.D. Obstruction Hospitalists Unspec 401.9 Hypertension Unspec 789.03 Pain Abdominal Right Lower Quadrant Office Visit 06/16/2012 10:30a [facility] Pilo Hopper 424.1 Aortic Valve Of Lauren Jean M.D., Disorder FAC, FASAZ Office Visit 12/11/2007 11:15a Neurosurgery Mack Patrick 719.45 Pain Joint Services Of Lauren Tripathi M.D. Pelvic Region & Thigh 459.9 Circulatory System Disorder Unspec Plan of Treatment Future Appointment(s):12/21/2018 1:45 pm - Pilo Jean M.D., FACC, [facility] at [facility]12/20/2019 11:30 am - Nancy Reeves MD at Pulmonology And Sleep Services Of [facility]12/11/2018 - Nancy Reeves MDJ45.909 Unspecified asthma, uncomplicatedFollow up:1 yearR00.1 Bradycardia, kuuxcwqecayE12.0 Nonrheumatic mitral (valve) insufficiency
== END 2018-12-17 23:00 | disposition home or self-care (01) ==
LOC: ED 17:58
DX: R07.89 Other chest pain (principal); R79.89 Other specified abnormal findings of blood chemistry; Z88.8 Allergy status to other drugs, medicaments and biological substances; Z87.891 Personal history of nicotine dependence
CPT/HCPCS: 36415; 71045; 80053; 83690; 83735; 84484; 85025; 85610; 86140; 93005; 96360; 96361; 99283

== ENCOUNTER 2019-01-08 08:10 | Inpatient (IN) | payer MEDICARE ==
[2019-01-08 08:24] LABS: ABS Eosinophils 0.1 10^3/ul (0-0.6); ABS Lymphocytes 0.7 10^3/ul (1.0-4.8); ABS Monocytes 0.3 10^3/ul (0-0.8); ABS Neutrophils 1.4 10^3/ul (1.5-7.7); Eosinophil % 3.2 %; Hematocrit 40 % (35-47); Hemoglobin 13.3 g/dL (12.0-16.0); Lymphocyte % 28.8 %; Mean Corpuscular HGB Conc 34 g/dL (31-36); Mean Corpuscular Hemoglobin 34 pg (27-31); Mean Corpuscular Volume 101 fL (80-97); Mean Platelet Volume 9.3 fL (7.4-10.4); Platelet Count 118 10^3/uL (150-450); Red Blood Count 3.96 10^6 /uL (3.70-4.87); Red Cell Distribution Width 14 % (10-15); White Blood Count 2.6 10^3/uL (3.5-10.8)
--- NOTE | 2019-01-08 08:30 | ED ---
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 She stated that she was given 4 ASA enroute to the hospital by EMS. She stated that she has had similar symptoms in the past. The chest pain has been improving since she was given the ASA. She denies any nausea, diaphoresis, SOB, and vomiting. She stated that the pain did not worsen with movement after she got out of bed. ASA alleviated her symptoms. She reports no aggravating factors at this time. She has a PMHx of CAD, hypertension, and valvular heart disease. She stated that she saw her breakdown man yesterday and there were no acute findings. - History of Current Complaint Time Seen by Provider: 01/08/19 08:12 Hx Obtained From: Patient Onset/Duration: Started Minutes Ago, Still Present, Resolved Timing: Constant Initial Severity: Moderate Current Severity: Mild Pain Intensity: 4 Pain Scale Used: 0-10 Numeric Chest Pain Location: Lower Sternal Chest Pain Radiates: No Aggravating Factor(s): Nothing Alleviating Factor(s): EMS Tx - 4 ASA Associated Signs and Symptoms: Positive: Chest Pain - lower sternal. Negative: Shortness of Breath, Diaphoresis, Nausea, Vomiting - Additional Pertinent History Primary Care Physician: [id number] - Allergy/Home Medications Allergies/Adverse Reactions: Allergies Allergy/AdvReac Type Severity Reaction Status Date / Time aspartame Allergy Unknown Verified 01/08/19 08:29 Reaction Details metoprolol Allergy Unknown Verified 01/08/19 08:29 Reaction Details pentoxifylline Allergy Unknown Verified 01/08/19 08:29 Reaction Details stevioside [From Stevia] Allergy Unknown Verified 01/08/19 12:51 Reaction Details sucralose Allergy Unknown Verified 01/08/19 12:51 [From Splenda (sucralose)] Reaction Details atorvastatin [From Lipitor] AdvReac Leg Cramps Verified 01/08/19 08:29 clopidogrel [From Plavix] AdvReac GI Upset Verified 01/08/19 08:29 ezetimibe [From Zetia] AdvReac Leg Cramps Verified 01/08/19 08:29 niacin AdvReac Leg Cramps Verified 01/08/19 08:29 Ugmtueg-Ims-Etf Reductase AdvReac Leg Cramps Verified 01/08/19 08:29 Inhibitor Home Medications: Home Medications Amoxicillin/Clavulanate TAB* [Augmentin TAB 500 mg*] 1 tab PO BID 01/08/19 [ History Confirmed 01/08/19] PMH/Surg Hx/FS Hx/Imm Hx Previously Healthy: Yes Endocrine/Hematology History: Denies: Hx Diabetes, Hx Sickle Cell Disease Cardiovascular History: Reports: Hx Angina, Hx Coronary Artery Disease, Hx Hypertension, 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, Hx Valvular Heart Disease - aortic valve repair Denies: Hx Hypercholesterolemia, Hx Myocardial Infarction, Hx Pacemaker/ICD Respiratory History: Denies: Hx Asthma, Hx Chronic Obstructive Pulmonary Disease (COPD), Other Respiratory Problems/Disorders GI History: Reports: Other GI Disorders - colon resection, colon CA History: Denies: Hx Kidney Stones, Other Problems/Disorders Musculoskeletal History: Denies: Hx Arthritis, Hx Rheumatoid Arthritis, Hx Osteoporosis Sensory History: Reports: Hx Contacts or Glasses, Other Sensory Impairments - vertigo Denies: Hx Hearing Aid Opthamlomology History: Reports: Hx Contacts or Glasses, Other Sensory Impairments - vertigo Neurological History: Reports: Other Neuro Impairments/Disorders - neuropathy, vertigo Psychiatric History: Denies: Hx Panic Disorder - Cancer History Cancer Type, Location and Year: Colon Cancer, SKIN Hx Chemotherapy: Yes - COLON CANCER, 70'S Hx Radiation Therapy: Yes - Surgical History Surgery Procedure, Year, and Place: COLON RESECTION. AORTIC VALVE REPLACED 05/24- [facility]- #[address] [facility] PORCINE VALVE: [id number], CONDITIONAL FOR 1.5T TO 3.0 T MRI MAX SPATIAL GRADIENT LESS THAN OR EQUAL TO 3000 GAUSS/cm ( INFORMATION SCANNED INTO PT'S EMR). ANGIOPLASTY. HERNIA REPAIR Xs 2 -1998 & 2013. CATARACT. STENTS IN LEGS TO OPEN UP BLOODFLOW. CYSTS REMOVED FROM VARIOUS PARTS OF BODY Hx Anesthesia Reactions: No - Family History Known Family History: Positive: Cardiac Disease, Hypertension - Social History Occupation: Retired Alcohol Use: None Hx Substance Use: No Substance Use Type: Reports: None Hx Tobacco Use: No Smoking Status (MU): Former Smoker Type: Cigarettes Amount Used/How Often: occasionally from age [age]. Review of Systems Negative: Skin Diaphoresis Positive: Chest Pain - lower sternal Negative: Shortness Of Breath Negative: Vomiting, Nausea All Other Systems Reviewed And Are Negative: Yes Physical Exam - Summary Physical Exam Summary: Appearance: The patient is well-nourished in no acute distress and in no acute pain. Skin: The skin is warm and dry and skin color reflects adequate perfusion. HEENT: The head is normocephalic and atraumatic. The pupils are equal and reactive. The conjunctivae are clear and without drainage. Nares are patent and without drainage. Mouth reveals moist mucous membranes and the throat is without erythema and exudate. The external ears are intact. The ear canals are patent and without drainage. The tympanic membranes are intact. Neck: The neck is supple with full range of motion and non-tender. There are no carotid bruits. There is no neck vein distension. Respiratory: Chest is non-tender. Lungs are clear to auscultation and breath sounds are symmetrical and equal. Cardiovascular: Heart is regular rate and rhythm. There is a Harsh blowing systolic murmur or rub auscultated. There is no peripheral edema and pulses are symmetrical and equal. Abdomen: The abdomen is soft and non-tender. There are normal bowel sounds heard in all four quadrants and there is no organomegaly palpated. Musculoskeletal: There is no back tenderness noted. Extremities are non-tender with full range of motion. There is good capillary refill. There is no peripheral edema or calf tenderness elicited. Neurological: Patient is alert and oriented to person, place and time. The patient has symmetrical motor strength in all four extremities. Cranial nerves are grossly intact. Deep tendon reflexes are symmetrical and equal in all four extremities. Psychiatric: The patient has an appropriate affect and does not exhibit any anxiety or depression. Triage Information Reviewed: Yes Vital Signs Reviewed: Yes Diagnostics - Laboratory Lab Results: Lab Results 01/08/19 Range/Units 08:18 WBC 2.6 L (3.5-10.8) 10^3/uL RBC 3.96 (3.70-4.87) 10^6 /uL Hgb 13.3 (12.0-16.0) g/dL Hct 40 (35-47) % MCV 101 H (80-97) fL MCH 34 H (27-31) pg MCHC 34 (31-36) g/dL RDW 14 (10-15) % Plt Count 118 L (150-450) 10^3/uL MPV 9.3 (7.4-10.4) fL Neut % (Auto) 54.3 % Lymph % (Auto) 28.8 % Allen % (Auto) 12.9 % Eos % (Auto) 3.2 % Baso % (Auto) 0.8 % Absolute Neuts (auto) 1.4 L (1.5-7.7) 10^3/ul Absolute Lymphs (auto) 0.7 L (1.0-4.8) 10^3/ul Absolute Monos (auto) 0.3 (0-0.8) 10^3/ul Absolute Eos (auto) 0.1 (0-0.6) 10^3/ul Absolute Basos (auto) 0.0 (0-0.2) 10^3/ul Absolute Nucleated RBC 0.0 10^3/ul Nucleated RBC % 0.0 Result Diagrams: 01/08/19 08:18 01/08/19 08:18 Lab Statement: Any lab studies that have been ordered have been reviewed, and results considered in the medical decision making process. - EKG 0818 Cardiac Rate: NL - 92 BPM EKG Rhythm: Sinus Rhythm EKG Comparison: No Significant Change - 12/17/18 Summary of EKG Findings: Normal sinus rhythm at 92 BPM, ventricular bigeminy, no STEMI. Unchanged from 12/17/18. Interpreted by Dr. Lucas 01/08/19 0821. Re-Evaluation - Re-Evaluation First Eval Re-Evaluation Time: 09:18 Change: Worse Comment: Her CP is worsening and her BP is 143/44. She will be given Nitro and Dr. Jean, breakdown man, or Dr. Nevarez, breakdown man, will be contacted to discuss the pt's current case. Second Eval Re-Evaluation Time: 10:04 Change: Unchanged Comment: The pt still has pain after being nitroglycerine. The pt will be given Morphine. Chest Pain Course/Dx - Course Course Of Treatment: Ms. Merida's chest pain began to come back after she been in the emergency Department a short while. Her initial troponin was 0.03 and her EKG was unchanged from 12/17/18. I spoke with Dr. Nevarez who saw her during her previous visit to the hospital. He recommended admission to the hospitalist because she has multiple problems and although her workup was completed last time she did not have chest pain on that visit. I spoke with Dr. Lenz from the hospitalists. - Diagnoses Provider Diagnoses: Chest pain - Provider Notifications Discussed Care Of Patient With: Elenita Delfin Time Discussed With Above Provider: 12:08 Instructed by Provider To: Admit As Inpatient - Critical Care Time Critical Care Time: 30-74 min Discharge ED - Sign-Out/Discharge Documenting (check all that apply): Patient Departure - admitted Patient Received Moderate/Deep Sedation with Procedure: No - Discharge Plan Condition: Stable Disposition: ADMITTED TO [facility] Referrals: La Minor MD [Primary Care Provider] - - Billing Disposition and Condition Condition: STABLE Disposition: Admitted to [facility] - Attestation Statements Document Initiated by Anastasiyaibe: Yes Documenting Scribe: Fareed Casarez Provider For Whom Scribe is Documenting (Include Credential): Calderon Lucas MD Scribe Attestation: Fareed Purcell, scribed for Calderon Lucas MD on 01/08/19 at 1255. Scribe Documentation Reviewed: Yes Provider Attestation: The documentation as recorded by the anastasiyaibFareed duran accurately reflects the service I personally performed and the decisions made by me, Calderon Lucas MD Status of Scribe Document: Viewed Consult Consult: Dr. Nevarez, Gas Compressor Turbine Operator, was informed of the pt's current condition, including her worsening state, at 0934. Dr. Nevarez recommended admitting the pt for further investigations. Dr. Lenz, Hospitalist, was consulted at 1042 and was informed of the pt's current condition and the previous consult with Dr. Nevarez. Dr. Lenz greed to evaluate the pt for a possible admission to [facility]. Dr. Lenz, Hospitalist, admitted the pt to [facility] at 1209
[2019-01-08 08:37] LABS: INR 1.06 (0.82-1.09)
[2019-01-08 08:42] LABS: Albumin 3.8 g/dL (3.2-5.2); Albumin/Globulin Ratio 1.7 (1-3); BUN/Creatinine Ratio 16.5 (8-20); Calcium 9.5 mg/dL (8.6-10.3); EGFR African American 70.8 (>60); EGFR Non-African American 58.5 (>60); Globulin 2.3 g/dL (2-4); Potassium 3.8 mmol/L (3.5-5.0); Total Bilirubin 0.8 mg/dL (0.2-1.0); Total Protein 6.1 g/dL (6.4-8.9)
[2019-01-08 08:43] LABS: Troponin I 0.03 ng/mL (<0.04)
--- OUTSIDE RECORDS SUMMARY | 2019-01-08 09:05 | XMS REPORT | Continuity of Care Document ---
:19[birth year] External Reference #:[id number] Author Name [place]ia Fung Care Team Providers Name Role Phone La Arzola MD Primary Care Physician Unavailable Payers Date Identification Numbers Payment Provider Subscriber Effective: 2007 Policy Number: [id number] [employer] Gifty Merida PayID: [id number] [address] [address] Attn: [place] [address] Problems Active Problems Provider Date Chest pain Pilo Jean M.D., [facility], Onset: 03/08/2013 [facility] Aortic valve disorder Pilo Jean M.D., [facility], Onset: 06/14/2013 [facility] Dyspnea Nancy Reeves MD Onset: 09/29/2015 Gastroesophageal reflux disease Nancy Reeves MD Onset: 09/29/2015 Allergic rhinitis Nancy Reeves MD Onset: 09/29/2015 Asthma without status asthmaticus Nancy Reeves MD Onset: 11/02/2015 Dizziness Linette Rich M.D. Onset: 07/02/2016 Mitral valve disorder Pilo Jean M.D., [facility], Onset: 04/29/2017 [facility] Atherosclerosis of arteries of the [place] Katharine Green M.D. 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 ETOH Use Denies alcohol use Recreational Drug Use Never Used Drugs Tobacco Use Start: Unknown Patient is a former social smoker, quit End: Unknown smoker in Smoking Status Reviewed: 12/21/18 Patient is a former social smoker, quit [...] at Unknown 09/28/2015 100mg Capsules bed time Aspirin 1 po qd Unknown 81mg Tablet Vitamin B12 1 by mouth every Unknown 1000mcg Tablets day ER Vitamin D3 1 by mouth every Unknown 2000Unit day Capsules Centrum Silver 50+Women once daily Unknown 50+Women Tablets History Medications D3 Dots take two 90tabs Pilo Ward 12/21/2018 - 2000Unit capsule/tablet daily Miguelina Jean, 12/20/2018 Tablets Dispers by mouth FACC, FASNC Xopenex HFA take 2 pufffs every 75units Nancy 02/04/2018 - 45mcg/Act 4-6 hours as needed MD Lala 07/27/2018 Aerosol for shortness of breath Singulair 1 by mouth every day( 90tabs J45.909 Nancy 11/02/2015 - 10mg not on pt list) MD Lala 07/01/2016 Tablets Proair HFA 1 puff every 6 hours 3units R06.02 Nnacy 09/29/2015 - as needed MD Lala 07/27/2018 108(90Base) mcg/Act Aerosol Zantac 1 tab by mouth at 90tabs K21.9 Nancy 09/29/2015 - 150mg Tablets night (pt no longer MD Lala 12/10/2017 taking) Pulmicort Flexhaler inhale one puff by 3units R06.02 Nancy 09/29/2015 - mouth twice a day MD Lala 07/27/2018 90mcg/Act Aerosol Vesicare 1 by mouth every day Unknown 09/28/2015 - 5mg Tablets 03/01/2016 Nitrostat one sl q5min up to 3 25tabs Pilo Ward 02/23/2013 - 0.4mg doses prn, if no Miguelina Jean, 06/03/2014 Tablets Sub relief after 3 call [facility], [facility] 911 Atenolol 1 tab by mouth every 90tabs Pilocat Hopper 03/16/2012 - 25mg Tablets day Miguelina Jean, 12/20/2018 [facility], [facility] Lisinopril 1 tab by mouth every 90tabs Pilo Ward 03/16/2012 - 20mg day Miguelina Jean, 12/20/2018 Tablets [facility], [facility] Meclizine HCL bid prn Unknown - 12.5mg 07/27/2018 Tablets Ambien 1 po qhs prn sleep 30tabs Unknown - 10mg Tablets insomnia 06/03/2014 Multivitamins 1 capsule daily 30caps Unknown - 12/20/2018 Capsules Tramadol HCL 1-2 tablets every 6 100tabs Unknown - 50mg hours as needed 12/10/2018 Tablets Vitamin D3 Complete daily Unknown - 05/20/2013 Tablets Citracal Plus prn Unknown - 05/20/2013 Tablets Calcium 600MG With 1 po qd Unknown - Vitamin D3 04/10/2015 [id number] Tablets Vitamin D 1 by mouth every day Unknown - 2000Unit 12/20/2018 Capsules Ipratropium [place] spray 3 times daily Unknown - 12/20/2018 0.03% Solution Medications Administered in Office Medication SIG Qnty Indications Ordering Provider Date Depomedrol 40MG Katia Jenkins M.D. 11/06/2017 Injection Depomedrol 40MG NIKKIE Raymond 12/11/2016 Injection Depomedrol 40MG Katia Jenkins M.D. 03/20/2016 Injection Inj, Regadenoson, 0.1 MG Pilo Jean M.D., 04/10/2015 Injection FACC, FASNC Aminophylline Pilo Jean M.D., 04/10/2015 Injection FACC, FASNC Technetium TC 99M Pilo Jean M.D., 04/10/2015 Tetrofosmin, Per Unit Dose Up FACVioleta FASNC To 40 Millicuries Injection Vital Signs Date Vital Result Comment 12/21/2018 1:36pm Height 66 inches 5'6" Weight 117.50 lb Heart Rate 58 /min BP Systolic Sitting 142 mmHg BP Diastolic Sitting 82 mmHg BP Systolic Standing 142 mmHg BP Diastolic Standing 82 mmHg Respiratory Rate 14 /min BMI (Body Mass Index) 19.0 kg/m2 Ejection Fraction 65-70% 12/11/2018 10:11am Height 66 inches 5'6" Weight [...] Test Result H/L Range Note Order 12/11/2018 Administrative Analyst In-House Echocardiogram <pending> CBC Auto 09/30/2017 [facility] White Blood Count 3.7 10^3/uL Normal 3.5-10.[address] [place] [address] [phone] Red Blood Count 3.83 10^6/uL Low 4.0-5.4 [...] Blood Cells % 0.1 BMP Basic 12/16/2014 [facility] Sodium 138 mmol/L Normal 133- 145 Metabolic Panel [address] ([address]) [place] [address] [phone] Potassium 4.1 mmol/L Normal 3.5-5.0 Chloride 101 mmol/L Normal 101-111 Co2 Carbon Dioxide 31 mmol/L Normal 22-32 Anion Gap 6 mmol/L Normal 2-11 Glucose 85 mg/dL Normal 70-100 Blood Urea Nitrogen 12 mg/dL Normal 6-24 Creatinine 0.92 mg/dL Normal 0.51-0.95 BUN/Creatinine Ratio 13.0 Normal 8-20 Calcium 10.6 mg/dL High 8.6-10.3 Egfr Non- 58.3 Normal >60 Egfr 75.0 Normal >60 1 Basic Metabolic Panel 03/08/2013 [facility] Sodium 138 mmol/L 133-[address] [place] [address] [phone] Potassium 3.8 mmol/L 3.5-5.0 Chloride 103 mmol/L 101-111 Co2 Carbon Dioxide 29.0 mmol/L 22-32 Anion Gap 6.0 mmol/L 2-11 Glucose 108 mg/dL High 70-100 Blood Urea Nitrogen 16 mg/dL 6-24 Creatinine 0.80 mg/dL 0.50-1.40 BUN/Creatinine Ratio 20.0 8-20 Calcium 9.5 mg/dL 8.1-9.9 Egfr Non- 68.8 >60 Egfr 88.5 >60 2 Laboratory test 03/08/2013 [facility] Vitamin B12 456 pg/mL 180-[address] [place] [address] [phone] Folate > 24.8 ng/mL High 2-16 1 [...] (or dialysis) Procedures Date Code Description Status 12/21/2018 58856 EKG Tracing & Interpretation Completed 12/11/2018 86379 ECHO Transthorasic Realtime 2D W Doppler & Color Flow Hosp Completed 12/11/2018 78046 ECHO Transthoracic, Real-Time 2D With Doppler And Color Completed Flow 07/28/2018 09816 EKG Tracing & Interpretation Completed 07/21/2018 61210 ECHO Transthoracic, Real-Time 2D With Doppler And Color Completed Flow 07/21/2018 98600 ECHO Transthoracic, Real-Time 2D With Doppler And Color Completed Flow 11/06/2017 15785 Inject Tendon Sheath Or Ligament Aponeurosis Eg Plantar Completed Fascia 04/29/2017 80544 EKG Tracing & Interpretation Completed 04/22/2017 29533 ECHO Transthoracic, Real-Time 2D With Doppler And Color Completed Flow 12/11/2016 58864 Inject Tendon Sheath Or Ligament Aponeurosis Eg Plantar Completed Fascia 05/01/2016 35432 EKG Tracing & Interpretation Completed 04/23/2016 01017 ECHO Transthoracic, Real-Time 2D With Doppler And Color Completed Flow 03/20/2016 15689 Inject Tendon Sheath Or Ligament Aponeurosis Eg Plantar Completed Fascia 07/11/2015 30180 Spirometry Incl Graphic Record Completed 04/19/2015 90609 EKG Tracing & Interpretation Completed 04/12/2015 67201 ECHO Transthoracic, Real-Time 2D With Doppler And Color Completed Flow 04/10/2015 84993 Stress Test Completed 04/10/2015 72702 Myocardial Perfusion Imaging Tomographic (Spect) Multiple Completed Studies 06/06/2014 00452 EKG Tracing & Interpretation Completed 06/01/2014 21849 ECHO Transthoracic, Real-Time 2D With Doppler And Color Completed Flow 06/14/2013 21727 EKG Tracing & Interpretation Completed 06/04/2013 90986 ECHO Transthoracic, Real-Time 2D With Doppler And Color Completed Flow 03/08/2013 10256 EKG Tracing & Interpretation Completed 02/28/2013 26406 Treadmill Interp/Report Only Completed 02/28/2013 12755 Stress Test Supervsn W/Out I/R Completed 06/16/2012 04824 EKG Tracing & Interpretation Completed 06/12/2012 84375 ECHO Transthoracic, Real-Time 2D With Doppler And Color Completed Flow Encounters Type Date Location Provider Dx Diagnosis Office Visit 12/21/2018 [facility] Pilo Ward I34.0 Nonrheumatic mitral 1:45p Of Lauren Jean M.D., (valve) FACC, FASNC insufficiency I70.213 [facility] [place] arteries of extrsaran w intrmt monserrat, bi legs Office Visit 12/13/2018 2:54p [facility] Jason Saeed I34.0 Nonrheumatic mitral Cardiology Miguelina Nevarez (valve) insufficiency Z95.2 Presence of prosthetic heart valve I49.3 Ventricular premature depolarization Office Visit 12/12/2018 2:53p [facility] Jason Saeed R00.1 BradycardiaRoque M.D. unspecified I34.0 Nonrheumatic mitral (valve) insufficiency Z95.2 Presence of prosthetic heart valve Office Visit 12/11/2018 9:20a [facility] Jason Saeed R06.00 DyspneaRoque M.D. 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 Dermatology Keshav Live, I87.2 Venous MD insufficiency (chronic) (peripheral) L81.8 Other specified disorders of pigmentation Office Visit 10/14/2018 [facility] Alcantar I70.223 [facility] [place] 11:30a Medicine Of Lauren Green M.D. arteries of extrm w rest pain, bilateral legs [facility]0 Nonrheumatic mitral 2:15p Of Lauren Jean M.D., (valve) FACC, FASNC insufficiency Office Visit 12/11/2017 [facility] Nancy J45.909 Unspecified asthma , 11:30a Sleep Services Of MD Lala uncomplicated [facility] Office Visit 04/29/2017 [facility] Pilocat Hopper I34.0 Nonrheumatic mitral 2:00p Of Lauren Jean M.D., (valve) FACC, FASNC insufficiency Office Visit 07/02/2016 [facility] Lashaun Patrick R42 Dizziness and 11:00a Services Of laury Marquez M.D. Office Visit 05/27/2016 [facility] Nancy J45.909 Unspecified asthma , 1:15p Sleep Services Of MD Lala uncomplicated Administrative Analyst Office Visit 05/01/2016 [facility] Pilo Hopper I35.8 Other nonrheumatic 10:45a Of 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 Office Visit 11/02/2015 [facility] Nancy J45.909 Unspecified 10:45a Sleep Services Of MD Lala asthma, [facility] uncomplicated J30.9 Allergic rhinitis, unspecified K21.9 Gastro-esophageal reflux disease without esophagitis Office Visit 09/29/2015 11:00a [facility] Nancy R06.02 Shortness of Sleep Services Of MD Lala breath Administrative Analyst K21.9 Gastro-esophageal reflux disease without esophagitis J30.9 Allergic rhinitis, unspecified Office Visit 04/19/2015 1:45p [facility] Pilo Ward I35.[address] Of [facility] Miguelina Jean, aortic valve FACC, FASNC disorders Office Visit 06/06/2014 10:45a [facility] Pilocat Hopper 424.[address] [facility] Miguelina Jean, Disorder FACC, FASNC Office Visit 06/14/2013 1:15p [facility] Pilo Hopper 424.[address] [facility] AT [facility] Miguelina Jean, Disorder FACC, FASNC Office Visit 03/08/2013 10:15a [facility] Pilo Ward 786.50 Pain Chest Unspec Of [facility] Miguelina Jean, FACC, FASNC Office Visit 02/28/2013 7:14a [facility] Addi Anton, 786.51 Pain Precordial Assoc,gildardo Mcintyre Hospitalists 424.1 Aortic Valve Disorder 401.9 Hypertension Unspec 780.4 Dizziness & Giddiness Office Visit 02/27/2013 7:14a [facility] Addi Anton, 786.51 Pain Precordial Assoc,gildardo Mcintyre Hospitalists 424.1 Aortic Valve Disorder 401.9 Hypertension Unspec 780.4 Dizziness & Giddiness Office Visit 02/08/2013 [facility] Ben Obregon 560.9 Intestinal 8:54a Assgildardo hernandes II, M.D. Obstruction Hospitalists Unspec 401.9 Hypertension Unspec 789.03 Pain Abdominal Right Lower Quadrant Office Visit 02/06/2013 [facility] Eyal 560.9 Intestinal 8:53a Assgildardo hernandes M.D. Obstruction Hospitalists Unspec 401.9 Hypertension Unspec 789.03 Pain Abdominal Right Lower Quadrant Office Visit 06/16/2012 10:30a [facility] Pilo Hopper 424.1 Aortic Valve Of Lauren Jean M.D., Disorder FACC, FASNC Office Visit 12/11/2007 11:15a Neurosurgery Mack Patrick 719.45 Pain Joint Services Of Lauren Tripathi M.D. Pelvic Region & Thigh 459.9 Circulatory System Disorder Unspec Plan of Treatment Future Appointment(s):02/02/2019 9:00 am - Pilo Jean M.D., FACC, FASNC at [facility]12/20/2019 11:30 am - Nancy Reeves MD at Pulmonology And Sleep Services Of [facility]12/21/2018 - Pilo Jean M.D., [facility], QGWWPP26.0 Nonrheumatic mitral (valve) insufficiencyNew Orders:Echocardiogram, Transesophageal, Ordered: 12/21/18Comments:As discussed, I will check your mitral valve and the circulation of your legs.Follow up:after TEEI70.213 Atherosclerosis of [place] arteries of extremities with intermittent claudication , bilateral legs
--- OUTSIDE RECORDS SUMMARY | 2019-01-08 09:05 | XMS REPORT | Continuity of Care Document ---
:1930 External Reference #:[id number] Author Name Vesta Medina Care Team Providers Name Role Phone La Arzola MD Primary Care Physician Unavailable Payers Date Identification Numbers Payment Provider Subscriber Effective: 2007 Policy Number: [id number] [employer] Gifty Merida PayID: [id number] [address] [address] Attn: [place] [address] Problems Active Problems Provider Date Chest pain Pilo Jean M.D., [facility], Onset: 03/08/2013 [facility] Aortic valve disorder Pilo Jean M.D., [facility], Onset: 06/14/2013 [facility] Dyspnea Nancy Reeves MD Onset: 09/29/2015 Gastroesophageal reflux disease Nancy Reeves MD Onset: 09/29/2015 Allergic rhinitis Nancy Reeves MD Onset: 09/29/2015 Asthma without status asthmaticus Nancy Reeves MD Onset: 11/02/2015 Dizziness Linette Rich M.D. Onset: 07/02/2016 Mitral valve disorder Pilo Jean M.D., [facility], Onset: 04/29/2017 [facility] Atherosclerosis of arteries of the [place] Katharine Green M.D. 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 11/06/2017 Injection Depomedrol 40MG NIKKIE Raymond 12/11/2016 Injection Depomedrol 40MG Katia Jenkins M.D. 03/20/2016 Injection Inj, Regadenoson, 0.1 MG Pilo Jean M.D., 04/10/[address] [facility] Pilo Jean M.D., 04/10/2015 Injection KAILASH [...] Test Result H/L Range Note Order 12/11/2018 [facility] In-House Echocardiogram <pending> CBC Auto 09/30/2017 [facility] White Blood Count 3.7 10^3/uL Normal 3.5-10.8 Diff [address] [place] [address] [phone] Red Blood Count 3.83 10^6/uL Low 4.0-5.4 [...] Blood Cells % 0.1 BMP Basic 12/16/2014 [facility] Sodium 138 mmol/L Normal 133- 145 Metabolic Panel [address] (8) [place] [address] [phone] Potassium 4.1 mmol/L Normal 3.5-5.0 Chloride 101 mmol/L Normal 101-111 Co2 Carbon Dioxide 31 mmol/L Normal 22-32 Anion Gap 6 mmol/L Normal 2-11 Glucose 85 mg/dL Normal 70-100 Blood Urea Nitrogen 12 mg/dL Normal 6-24 Creatinine 0.92 mg/dL Normal 0.51-0.95 BUN/Creatinine Ratio 13.0 Normal 8-20 Calcium 10.6 mg/dL High 8.6-10.3 Egfr Non- 58.3 Normal >60 Egfr 75.0 Normal >60 1 Laboratory test 03/08/2013 [facility] Vitamin B12 456 pg/mL 180-914 finding [address] [place] [address] [phone] Folate > 24.8 ng/mL High 2-16 Basic Metabolic Panel 03/08/2013 [facility] Sodium 138 mmol/L 133-145 [address] [place] [address] [phone] Potassium 3.8 mmol/L 3.5-5.0 Chloride 103 mmol/L [...] dialysis) Procedures Date Code Description Status 12/11/2018 52484 ECHO Transthorasic Realtime 2D W Doppler & Color Flow Hosp Completed 07/28/2018 58666 EKG Tracing & Interpretation Completed 07/21/2018 47672 ECHO Transthoracic, Real-Time 2D With Doppler And Color Completed Flow 07/21/2018 21544 ECHO Transthoracic, Real-Time 2D With Doppler And Color Completed Flow 11/06/2017 36687 Inject Tendon Sheath Or Ligament Aponeurosis Eg Plantar Completed Fascia 04/29/2017 91650 EKG Tracing & Interpretation Completed 04/22/2017 61077 ECHO Transthoracic, Real-Time 2D With Doppler And Color Completed Flow 12/11/2016 78638 Inject Tendon Sheath Or Ligament Aponeurosis Eg Plantar Completed Fascia 05/01/2016 72403 EKG Tracing & Interpretation Completed 04/23/2016 35000 ECHO Transthoracic, Real-Time 2D With Doppler And Color Completed Flow 03/20/2016 90766 Inject Tendon Sheath Or Ligament Aponeurosis Eg Plantar Completed Fascia 07/11/2015 92478 Spirometry Incl Graphic Record Completed 04/19/2015 79893 EKG Tracing & Interpretation Completed 04/12/2015 75894 ECHO Transthoracic, Real-Time 2D With Doppler And Color Completed Flow 04/10/2015 82526 Stress Test Completed 04/10/2015 54469 Myocardial Perfusion Imaging Tomographic (Spect) Multiple Completed Studies 06/06/2014 83250 EKG Tracing & Interpretation Completed 06/01/2014 39648 ECHO Transthoracic, Real-Time 2D With Doppler And Color Completed Flow 06/14/2013 33270 EKG Tracing & Interpretation Completed 06/04/2013 50500 ECHO Transthoracic, Real-Time 2D With Doppler And Color Completed Flow 03/08/2013 04956 EKG Tracing & Interpretation Completed 02/28/2013 80675 Treadmill Interp/Report Only Completed 02/28/2013 02313 Stress Test Supervsn W/Out I/R Completed 06/16/2012 49650 EKG Tracing & Interpretation Completed 06/12/2012 26821 ECHO Transthoracic, Real-Time 2D With Doppler And Color Completed Flow Encounters Type Date Location Provider Dx Diagnosis Office Visit 12/13/2018 [facility] Jason Saeed I34.0 Nonrheumatic mitral 2:54p Miguelina Nevarez (valve) insufficiency Z95.2 Presence of prosthetic heart valve I49.3 Ventricular premature depolarization Office Visit 12/12/2018 2:53p [facility] Jason Saeed R00.1 BradycardiaRoque M.D. unspecified I34.0 Nonrheumatic mitral (valve) insufficiency Z95.2 Presence of prosthetic heart valve Office Visit 12/11/2018 9:20a [facility] Jason Saeed R06.00 DyspneaRoque M.D. 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 Dermatology Keshav Live, I87.2 Venous MD insufficiency (chronic) (peripheral) L81.8 Other specified disorders of pigmentation Office Visit 10/14/2018 [facility] Alcantar I70.223 Athscl [place] 11:30a Medicine Of Lauren Green M.D. arteries of extrm w rest pain, bilateral legs Office Visit 07/28/2018 [facility] Pilo Ward I34.0 Nonrheumatic mitral 2:15p Of Lauren Jean M.D., (valve) FACC, FASNC insufficiency Office Visit 12/11/2017 [facility] And Nancy J45.909 Unspecified asthma , 11:30a Sleep Services Of MD Lala uncomplicated [facility] Office Visit 04/29/2017 [facility] Pilocat Hopper I34.0 Nonrheumatic mitral 2:00p Of Lauren Jean M.D., (valve) FACC, FASNC insufficiency Office Visit 07/02/2016 [facility] Linette Celina R42 Dizziness and 11:00a Services Of laury Marquez M.D. Office Visit 05/27/2016 [facility] And Nancy J45.909 Unspecified asthma , 1:15p Sleep Services Of MD Lala uncomplicated 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 Office Visit 11/02/2015 [facility]mon[facility] And Nancy J45.909 Unspecified 10:45a Sleep Services Of MD Lala asthma, [facility] uncomplicated J30.9 Allergic rhinitis, unspecified K21.9 Gastro-esophageal reflux disease without esophagitis Office Visit 09/29/2015 11:00a [facility] And Nancy R06.02 Shortness of Sleep Services Of MD Lala breath [facility] K21.9 Gastro-esophageal reflux disease without esophagitis J30.9 Allergic rhinitis, unspecified Office Visit 04/19/2015 1:45p [facility] Pilocat Hopper I35.8 Other nonrheumatic Of Lauren Jean M.D., aortic valve FACC, FASNC disorders Office Visit 06/06/2014 10:45a [facility] 424.1 Aortic Valve Of Lauren Jean M.D., Disorder FACC, FASNC Office Visit 06/14/2013 1:15p [facility] Pilo Hopper 424.[address] [facility] AT [facility] Miguelina Jean, Disorder FACC, FASNC Office Visit 03/08/2013 10:15a [facility] Pilo Hopper 786.50 Pain Chest Unspec Of [facility] Miguelina Jean, FACC, FASNC Office Visit 02/28/2013 7:14a [facility] Addi Anton, 786.51 Pain Precordial Assoc,gildardo Mcintyre Hospitalists 424.1 Aortic Valve Disorder 401.9 Hypertension Unspec 780.4 Dizziness & Giddiness Office Visit 02/27/2013 7:14a [facility] Addi Anton, 786.51 Pain Precordial Assoc,gildardo Mcintyre Hospitalists 424.1 Aortic Valve Disorder 401.9 Hypertension Unspec 780.4 Dizziness & Giddiness Office Visit 02/08/2013 [facility] Ben Obregon 560.9 Intestinal 8:54a Assocgildardo II, M.D. Obstruction Hospitalists Unspec 401.9 Hypertension Unspec 789.03 Pain Abdominal Right Lower Quadrant Office Visit 02/06/2013 [facility] Eyal 560.9 Intestinal 8:53a Assoc,gildardo Hwang M.D. Obstruction Hospitalists Unspec 401.9 Hypertension Unspec 789.03 Pain Abdominal Right Lower Quadrant Office Visit 06/16/2012 10:30a [facility] Pilo Hopper 424.[address] [facility] Miguelina Jean, Disorder FACC, FASNC Office Visit 12/11/2007 11:15a Neurosurgery Mack Patrick 719.45 [address] Of [facility] Miguelina Tripathi Pelvic Region & Thigh 459.9 Circulatory System Disorder Unspec Plan of Treatment Future Appointment(s):12/20/2019 11:30 am - Nancy Reeves MD at [facility]12/11/2018 - Nancy Reeves MDJ45.909 Unspecified asthma, uncomplicatedFollow up:1 yearR00.1 Bradycardia, gkxexxlbogaN74.0 Nonrheumatic mitral (valve) insufficiency
[2019-01-08] MEDS ORDERED: Nitro 2% OINT* (Nitroglycerin) 1 INCH/PAK PAK TOPICAL ONE (09:21)
[2019-01-08] MEDS ORDERED: Morphine 4 MG/ML VIAL (1 ml) 4 MG/ML VIAL IV ONE (10:02)
[2019-01-08 11:40] LABS: Urine Appearance Clear; Urine Bacteria Absent (Absent); Urine Bilirubin Negative (Negative); Urine Blood Negative (Negative); Urine Color Yellow; Urine Glucose Negative (Negative); Urine Ketones Negative (Negative); Urine Nitrite Negative (Negative); Urine Protein Negative (Negative); Urine Red Blood Cell Trace(0-2/hpf) (Absent); Urine Specific Gravity 1.005 (1.010-1.030); Urine Squamous Epithelial Cell Present (Absent); Urine Urobilinogen Negative (Negative); Urine White Blood Cell Trace(0-5/hpf) (Absent)
[2019-01-08] MEDS ORDERED: Al Hydrox/Mg Hydrox/Simet LIQ* 30 ML UDC PO ONE (12:39)
[2019-01-08] MEDS ORDERED: SCOP/HYOS/ATR/PB(NF) 10 ML UDC PO ONE (12:39)
[2019-01-08] MEDS ORDERED: Lidocaine 2% VISCOUS* 15 ML UDC PO ONE (12:39)
[2019-01-08] MEDS ORDERED: Acetaminophen TAB* 325 MG PO PRN (12:43)
[2019-01-08] MEDS: Calcium Carbonate CHEW TAB* 500 MG (TUMS) PO PRN (13:08)
--- NOTE | 2019-01-08 14:26 | HP ---
AMENDED REPORT NOW INCLUDES DESIGNATED COSIGNER - ESIGNED BEFORE ADJUSTMENTS CC: La Arzola MD; Dr. Jean; Dr. Stone * HISTORY AND PHYSICAL: DATE OF ADMISSION: 01/08/19 PRIMARY CARE PROVIDER: La Arzola MD OUTPATIENT CREATIVE WRITING PROFESSOR: Dr. Jean. OUTPATIENT UROLOGIST: Dr. Stone. ATTENDING PHYSICIAN: Dr. Elenita Corrales.* (DICTATED BY HEMA RAJAN, REED) CHIEF COMPLAINT: Epigastric pain. HISTORY OF PRESENT ILLNESS: Mrs. Merida is an 88-year-old female with a past medical history significant for aortic stenosis, status post AVR in 2005, ventricular tachycardia, hypertension, history of diverticulitis, hemorrhoids, adenocarcinoma, CAD, asthma, PVD, who presented to the emergency department today via EMS with lower sternal chest pain. The patient reports that she woke from sleep with this lower sternal chest pain. She reports she got up, started walking around, and this pain did not increase. She was concerned as it "felt like something hit me" and she also "felt like something was wrong." She was also concerned as this pain was 9 or 10 out of 10. Therefore, the patient called 911. En route, the patient received aspirin, which she reports helped improve the pain momentarily as it went down to 4 or 5 out of 10 but has now increased back up and is now sharp and 8 out of 10. The patient had no change in pain with the application of nitro paste here in the ED. The patient denies any aggravating factors. The patient reports the only alleviating factor is aspirin. The patient denies any associated symptoms including diaphoresis, cough, shortness of breath, nausea, vomiting, abdominal pain, diarrhea, dizziness. The patient reports she has had leg aches that have been present for several months to years. The patient denies any other symptoms including recent weight loss, edema, dysuria, focal weakness or sensory loss, visual complaints, dysphagia, rashes or lesions, anxiety or depression. It should be noted that the patient saw her webbing seamer pound net, not her supervisor die casting, yesterday for skin treatments. It should also be noted that patient saw her urologist approximately 3 days ago and was placed on Augmentin for UTI. The patient has been taking this Augmentin as prescribed. While in the emergency department, the patient had a CBC which is fairly unremarkable with the exception of a low white count at 2.6. The patient had a CMP which was unremarkable. The patient has had troponins x2, both of which were 0.03. It should be mentioned this is baseline for patient. At her last admission, she was also 0.03. The patient had an EKG which showed no concerning findings. The patient had a urinalysis which was positive for leukocyte esterase and squamous epithelials. Given the patient's symptoms and her history, the hospitalists were asked to consult for admission. PAST MEDICAL HISTORY: 1. Aortic stenosis, status post AVR in 2005. 2. Ventricular tachycardia. 3. Hypertension. 4. Diverticulitis, history of. 5. Hemorrhoids. 6. Adenocarcinoma. 7. CAD. 8. Asthma. 9. PVD. PAST SURGICAL HISTORY: 1. Colon cancer surgery. 2. Ganglion cyst. 3. Hernia repair. 4. Aortic valve replacement. 5. Cataracts. 6. Multiple skin surgeries for skin cancer. 7. Stents x2 to right leg. HOME MEDICATIONS: 1. Multivitamin. 2. Lisinopril 5 mg p.o. at bedtime. 3. Gabapentin 100 mg p.o. at bedtime. 4. Vitamin B12 1000 mcg p.o. daily. 5. Vitamin D 2000 units p.o. daily. 6. Calcium carbonate 1000 mg p.o. b.i.d. p.r.n. 7. Aspirin 81 mg p.o. daily. 8. Augmentin 500 mg p.o. b.i.d. x7 days. The patient has taken 3 days. ALLERGIES: 1. ASPARTAME. 2. METOPROLOL. 3. PENTOXIFYLLINE. 4. LIPITOR. 5. PLAVIX. 6. ZETIA. 7. NIASPAN. 8. STATINS. 9. TRUVIA. 10. SPLENDA. FAMILY HISTORY: Father had asthma and at age 49. Mother had diabetes and congestive heart failure. Sister passed of a stroke. Sister had blood cancer. Brother had heart attack. Brother had open heart surgery with mitral valve repair. SOCIAL HISTORY: The patient lives alone. She reports she ambulates independently, but occasionally uses a cane when she is outside. The patient continues to drive. The patient is . The patient has 2 kids. The patient is a former smoker for approximately 20 years. The patient denies alcohol use. The patient denies drug use. The patient reports her surrogate decision maker will be her son, Gustavo Rodrigues, in the case she could not make decisions for herself. The patient is a full code. REVIEW OF SYSTEMS: A 14-point review of systems was performed and all the pertinent positive and negative findings are in the HPI. All other systems are negative. PHYSICAL EXAMINATION GENERAL: Mrs. Merida is an 88-year-old female who is lying in bed. Appears to be in no acute distress. Appears stated age. VITAL SIGNS: Temp 97.8, HR 75, RR 29, O2 saturation 97% on room air, BP 150/65. HEENT: EOMs intact. PERRLA. Sclerae without icterus. Oral mucosa is moist without lesions. Posterior pharynx is clear. NECK: Supple. No lymphadenopathy. RESPIRATORY: Symmetrical chest expansion. No accessory muscle use. Lungs are clear. No rhonchi, wheezes, or rales. CV: Regular rate and rhythm. S1, S2 present. No murmurs, rubs, or gallops. ABDOMEN: Abdomen is soft. The patient reports tenderness to palpation of the epigastric region directly under her sternum. Bowel sounds are normoactive. No rebound tenderness. EXTREMITIES: Skin is warm and smooth bilaterally. No edema. No clubbing or cyanosis. Pedal pulses 2+ bilaterally. MUSCULOSKELETAL: No pain or deformities. NEUROLOGIC: The patient is awake, alert, and oriented x4. Strength is 5/5 in the upper and lower extremities. SKIN: Grossly intact without lesions. DIAGNOSTIC STUDIES/LAB DATA: WBC 2.6, hemoglobin 13.3, hematocrit 40, platelets 118. Sodium 140, potassium 3.8, chloride 108, carbon dioxide 29, BUN 15, creatinine 0.91. ASSESSMENT AND PLAN: Mrs. Merida is an 88-year-old female with past medical history significant for aortic stenosis, status post aortic valve replacement, ventricular tachycardia, hypertension, history of diverticulitis, hemorrhoids, adenocarcinoma, coronary artery disease, asthma, peripheral vascular disease, who presents to the emergency department today with chest pain. The patient will be admitted OBV. 1. Chest pain: So far the patient's EKG is unremarkable and troponins have remained 0.03, I will continue to trend the patient's troponins. I will place her on telemetry. I will monitor her vital signs. Given she has also recently been placed on Augmentin for urinary tract infection, I ordered a GI cocktail to be given here in the ED and RNs report that patient's pain was "4" out of 10 which is an improvement from "8" out of 10. I will order a scheduled PPI. I have also placed a call to Cardiology. It should be mentioned that patient saw her supervisor die casting on 12/21/18, Dr. Jean, who discussed a ROSAMARIA for further evaluation of her mitral valve. It should also be mentioned that the patient's last echocardiogram was on 12/11/18 and revealed an EF of 65% to 70%, severely dilated left atrium, [id number] regurgitation of the mitral valve, mild- to-moderate regurgitation of tricuspid valve. Her last stress test was and showed no definitive fixed or reversible perfusion deficits. Normal LV function. I will order a repeat echo and if this is unchanged from November that will be reassuring. If there is any change, I would recommend contact cardiology for official consult. 2. Aortic stenosis, status post aortic valve replacement in 2005: Once again, the patient's last echo was 12/11/18 and aortic valve was viewed and was remarked there is a bioprosthetic valve. Peak systolic is 2.56 m/sec. Mean systolic gradient is 14.0 mmHg. Peak systolic gradient is 26.0 mmHg. 3. Hypertension: I will continue patient's lisinopril 5 mg. The patient reports that she was told once this medication runs out, she can stop taking it. I do not see that in her supervisor die casting's last note. Therefore, I will continue that while she is here as she is also mildly hypertensive and controlling her blood pressure will help with valve disorder. 4. History of diverticulitis: The patient has no signs or symptoms at this time. 5. Coronary artery disease: We will continue the patient's aspirin. As mentioned above, she had a stress test which was unremarkable on 12/14/18. 6. Asthma: The patient is not currently on inhalers, but she follows with Dr. Reeves given her father's history of asthma. I will monitor respiratory status and provide interventions as needed. 7. Peripheral vascular disease: The patient should continue her aspirin and follow up with Dr. Green as previously recommended. 8. FEN: The patient will be placed on n.p.o. diet until I can speak to the supervisor die casting and her third troponin results. 9. Code status: The patient is a full code. 10. DVT prophylaxis: Based on the DVT Risk Assessment, the patient is high risk. I will order subcu heparin. TIME SPENT: Approximately 65 minutes was spent on this admission, greater than half the time was spent with the patient obtaining my history, performing physical exam, and reviewing my plan of care. This case has also been reviewed with my attending, Dr. Corrales, who is in agreement with my plan of care. Reviewed by HEMA RAJAN NP 01/08/19 @ [id number]/CPS #: [id number] MTDD
[2019-01-08 15:08] LABS: Troponin I 0.04 ng/mL (<0.04)
[2019-01-08] MEDS: Heparin VIAL(*) 5000 UNITS/ML VIAL (FIVE THOUSAND) SUBCUT SCH ×2 (16:09→21:41)
[2019-01-08] MEDS: Pantoprazole TAB * 40 MG TAB PO SCH ×2 (17:15→21:18)
--- NOTE | 2019-01-08 19:09 | ECHO ---
*[facility]* [place] [address] Fax #: [phone] Transthoracic Echocardiogram Patient: Jhonathan Merida : 1930 Study Date: 01/08/2019 Age: 88 Gender: F HR: 42 bpm Height: 67 in /170.2 cm BSA: 1.63 m^2 Weight: 119.8 lb /54.4 kg BMI: 18.8 kg/m^2 *Brush Holder Assembler: * Serena Escalona RDCS RN *Referring Physician: * Jenn Milton *Reading Physician: * Jason Nevarez MD Indications: Chest Pain, unspecified. History: Coronary artery disease. Rheumatic fever. Mitral stenosis. Risk factors: Former tobacco use. Hypertension. Dyslipidemia. Labs, prior tests, procedures, and surgery: Aortic valve replacement with a 23 mm Biocor porcine valve in 2005. Conclusions Summary: - Impressions: The study is unchanged since the study of 12/11/2018. - Left ventricle: Systolic function is normal. The estimated ejection fraction is 60-65%. Features are consistent with a pseudonormal left ventricular filling pattern, with concomitant abnormal relaxation and increased filling pressure (grade 2 diastolic dysfunction). - Left atrium: The atrium is severely dilated. - Mitral valve: There is moderate prolapse with the posterior leaflet more involved than the anterior leaflet. Flail motion is suspected in the posterior leaflet. There is moderate to severe regurgitation, possible severe, with multiple jets. Severe regurgitation is suggested by a regurgitant jet area >= 40% of the left atrial area. There is also reversal of flow in a pulmonary vein. - Aortic valve: There is no regurgitation. The aortic valve replacement appears to be functioning normally. - Tricuspid valve: There is mild-moderate regurgitation. - Pulmonary arteries: Systolic pressure is mildly to moderately increased, estimated to be 44 mm Hg. Study data: Transthoracic echocardiogram. Procedure: Transthoracic echocardiography was performed. Image quality was good. Complete 2D, spectral Doppler, and color flow Doppler. Location: Bedside. Patient status: Inpatient. Patient room number: 443-02. The previous study was not available, so comparison is made to the report of 12/11/2018. Rhythm: Bradycardia. Frequent PVCs including bigeminy. Findings Left ventricle: The cavity size is normal. Wall thickness is mildly increased. Systolic function is normal. The estimated ejection fraction is 60-65%. There is interventricular dyssynchrony due to bigeminy. Features are consistent with a pseudonormal left ventricular filling pattern, with concomitant abnormal relaxation and increased filling pressure (grade 2 diastolic dysfunction). Right ventricle: The cavity size is mildly dilated. Systolic function is normal. Left atrium: The atrium is severely dilated. Right atrium: The atrium is mildly dilated. Mitral valve: The leaflets are moderately thickened. Thickening. Mobility is restricted. There is moderate prolapse with the posterior leaflet more involved than the anterior leaflet. Flail motion is suspected in the posterior leaflet. The findings are consistent with trivial stenosis. There is moderate to severe regurgitation, possible severe, with multiple jets. Severe regurgitation is suggested by a regurgitant jet area >= 40% of the left atrial area. There is also reversal of flow in a pulmonary vein. Aortic valve: There is a bioprosthetic valve. There is no regurgitation. The aortic valve replacement appears to be functioning normally. Tricuspid valve: The leaflets are mildly thickened. There is no evidence of stenosis. There is mild-moderate regurgitation. Pulmonic valve: Not well visualized. There is no evidence of stenosis. There is no significant regurgitation. Aorta: Aortic root: The aortic root is not dilated. Ascending aorta: The ascending aorta is poorly visualized. Aortic arch: The aortic arch is not dilated. Pericardium: There is no pericardial effusion. Pulmonary arteries: Not well visualized. Systolic pressure is mildly to moderately increased, estimated to be 44 mm Hg. Systemic veins: Inferior vena cava: The vessel is mildly dilated. There is (>= 50%) respiratory change in the IVC dimension. Measurements Left ventricle Value Ref Aortic valve Value Ref ADDY, LAX 4.5 cm 3.8 - 5.2 Jhonathan diam, ED 1.7 cm ---- ESD, LAX 2.9 cm 2.2 - 3.5 Jhonathan diam/bsa, ED 1.1 cm/m^2 ---- FS, LAX 36 % 27 - 45 Peak v, S 2.46 m/sec ---- PW, ED (H) 1.2 cm 0.6 - 0.9 VTI, S 61.4 cm ---- IVS/PW, ED 1 Mean grad, S 16.0 mm Hg ---- E', lat jhonathan, TDI (L) 5.9 cm/sec >=10.0 Peak grad, S 24.0 mm Hg -- -- E/e', lat jhonathan, 24 LVOT/AV, VTI ratio 0.42 ---- TDI MELANIE, VTI 0.95 cm^2 ---- E', med jhonathan, TDI (L) 5.0 cm/sec >=7.0 MELANIE, Vmax 1.12 cm^2 -- -- E/e', med jhonathan, 29 TDI Mitral valve Value Ref E', avg, TDI 5.5 cm/sec Peak E 1.43 m/sec ---- E/e', avg, TDI (H) 26 <=14 Peak A 1.24 m/sec -- -- Decel time 257 ms ---- LVOT Value Ref Peak grad, D 8.2 mm Hg ---- Diam, S 1.70 cm Peak E/A ratio 1.2 ---- Area 2.3 cm^2 ERO, PISA 0.1 cm^2 ---- Peak aure, S 1.21 m/sec MR vol, PISA 25 ml ---- VTI, S 25.7 cm MR fraction, PISA 30 % ---- Peak grad, S 6 mm Hg Mean grad, S 3 mm Hg Pulmonic valve Value Ref SV 58 ml Peak v, S 0.71 m/sec ---- SV/bsa 36 ml/m^2 Peak grad, S 2.0 mm Hg ---- Ventricular septum Value Ref Tricuspid valve Value Ref IVS, ED (H) 1.2 cm 0.6 - 0.9 Peak RV-RA grad, S 36 mm Hg ---- Max TR aure 3 m/sec ---- Right ventricle Value Ref ADDY minor ax, A4C (H) 4.2 cm 1.9 - 3.5 Aortic root Value Ref mid Root diam 3.1 cm <3.9 Pressure, S 44 mm Hg Aortic arch Value Ref Left atrium Value Ref Arch diam 2.1 cm ---- AP dim, ES (H) 5.30 cm 2.70 - 3.80 Decending aorta Value Ref ML dim, A4C 5.2 cm Jose peak aure 0.5 m/sec ---- SI dim, A4C 5.0 cm Vol/bsa, ES, 1-p (H) 55 ml/m^2 11 - 40 Pulmonary artery Value Ref A4C Pressure, S 44.0 mm Hg ---- Vol/bsa, ES, A/L (H) 83 ml/m^2 16 - 34 Inferior vena cava Value Ref Right atrium Value Ref Diam 2.2 cm ---- ML dim, ES, A4C 4.3 cm 2.6 - 4.4 SI dim, ES, A4C (H) 5.5 cm 3.4 - 5.3 Estimated RAP 8 mm Hg Legend: (L) and (H) salena values outside specified reference range. Prepared and electronically signed by Jason Nevarez MD 01/08/2019 19:08
[2019-01-08 19:10] LABS: Troponin I 0.04 ng/mL (<0.04)
[2019-01-08] MEDS ORDERED: Potassium Chlor TAB* 20 MEQ TAB.ER PO ONE (19:28)
[2019-01-08] MEDS ORDERED: Lisinopril TAB* 5 MG PO SCH (21:00)
[2019-01-08] MEDS: Gabapentin CAP(*) 100 MG PO SCH (21:17)
[2019-01-08] MEDS: Amoxicillin/Clavulanate TAB* 500 MG PO SCH (21:17)
[2019-01-08 22:11] LABS: Troponin I 0.04 ng/mL (<0.04)
[2019-01-09 00:25] LABS: Troponin I 0.04 ng/mL (<0.04)
[2019-01-09 05:22] LABS: ABS Eosinophils 0.1 10^3/ul (0-0.6); ABS Lymphocytes 0.7 10^3/ul (1.0-4.8); ABS Monocytes 0.3 10^3/ul (0-0.8); ABS Neutrophils 1.3 10^3/ul (1.5-7.7); Eosinophil % 3.5 %; Hematocrit 36 % (35-47); Hemoglobin 12.2 g/dL (12.0-16.0); Lymphocyte % 27.6 %; Mean Corpuscular HGB Conc 34 g/dL (31-36); Mean Corpuscular Hemoglobin 34 pg (27-31); Mean Corpuscular Volume 100 fL (80-97); Mean Platelet Volume 9.4 fL (7.4-10.4); Platelet Count 103 10^3/uL (150-450); Red Blood Count 3.57 10^6 /uL (3.70-4.87); Red Cell Distribution Width 14 % (10-15); White Blood Count 2.4 10^3/uL (3.5-10.8)
[2019-01-09 05:40] LABS: Albumin/Globulin Ratio 1.4 (1-3); BUN/Creatinine Ratio 15.3 (8-20); Calcium 8.7 mg/dL (8.6-10.3); EGFR African American 76.6 (>60); EGFR Non-African American 63.3 (>60); Globulin 2.1 g/dL (2-4); HDL Cholesterol 53.4 mg/dL; Total Bilirubin 0.7 mg/dL (0.2-1.0); Total Protein 5.1 g/dL (6.4-8.9)
[2019-01-09 06:09] LABS: TSH (Thyroid Stimulating Horm) 0.77 mcIU/mL (0.34-5.60)
[2019-01-09] MEDS: Heparin VIAL(*) 5000 UNITS/ML VIAL (FIVE THOUSAND) SUBCUT SCH ×3 (06:29→21:01)
[2019-01-09] MEDS: Cyanocobalamin TAB* 500 MCG PO SCH (09:08)
[2019-01-09] MEDS: Cholecalciferol TAB* 1000 UNITS PO SCH (09:08)
[2019-01-09] MEDS: Pantoprazole TAB * 40 MG TAB PO SCH ×2 (09:08→20:52)
[2019-01-09] MEDS: Multivitamins/Minerals TAB PO SCH (09:09)
[2019-01-09] MEDS: Aspirin EC TAB* 81 MG TAB.EC PO SCH (09:09)
[2019-01-09] MEDS: Amoxicillin/Clavulanate TAB* 500 MG PO SCH ×2 (09:09→20:53)
--- NOTE | 2019-01-09 15:28 | CONS ---
CC: Jason Nevarez MD; Dr. Jean CARDIOLOGY CONSULTATION: DATE OF CONSULT: 01/09/19 CONSULTING PHYSICIAN: Mj Patton MD REASON FOR EVALUATION: Chest pain. HISTORY OF PRESENT ILLNESS: This is a very pleasant 88-year-old woman with a known history of mild coronary artery disease in the remote past, AVR for aortic stenosis, and recently diagnosed yoxuvmcz-zw-absmso MR. She also has a history of frequent PVCs and recently was admitted for bradycardia with bigeminy in November. At that time, her atenolol was discontinued allowing mild increase in her heart rate. She also had a nuclear stress test performed on which revealed no definite or fixed reversible defects, low risk, EF was 70%. There was noted a reversible defect of inferior wall that resolved with attenuation correction, was thought to be artifactual, and was considered low risk. She reported that she had some improvement in her dyspnea on exertion, but has been it easy since discharge. She no longer uses the stairs which were giving her dyspnea on exertion. She is using the elevator to go to her second floor apartment. She drives and [place] close to the store and is able to walk into the store. She does get claudication-type symptoms and had been seen by Dr. Green in the past and is anticipating a repeat evaluation with him for possible revascularization of her lower extremities. Yesterday morning, she awoke from sleep with severe substernal chest pressure. It was not associated with gas, diaphoresis, shortness of breath, or lightheadedness. Because of those persistent symptoms, she called an ambulance and came to the ER. It improved somewhat on the way to ER after receiving aspirin, then recurred. She apparently got a GI cocktail and her symptoms resolved slowly over many hours. Her troponins were 0.03, 0.04, 0.04, 0.04, and 0.04 last night at midnight. She has been treated as an inpatient with Protonix and she has Nitropaste on. She has been noted to have frequent PVCs, bigeminy, and trigeminy as well as nonsustained VT. She denies syncope, orthopnea, or peripheral edema. She denies fevers, chills, sweats, hematemesis, or hematochezia. She denies alcohol use or caffeine use. PAST MEDICAL HISTORY: Includes hypertension; peripheral vascular disease, followed by Dr. Green and anticipating possible revascularization; asthma; COPD , followed by Dr. Reeves; aortic stenosis, status post AVR in December 2005; ventricular tachycardia and moderate RCA disease back in 2005 at cath then; fibromyalgia; MR; hemorrhoids; diverticulitis in the past; colon cancer with adenocarcinoma, status post resection. PAST SURGICAL HISTORY: Include AVR in 2005 with a Biocor #23 valve, colon surgery in 1979, cataract surgery, right breast lumpectomy, and herniorrhaphy. MEDICATIONS: As an outpatient include: 1. Antibiotic prophylaxis for valve. 2. Lisinopril 5 mg at bedtime. 3. Gabapentin 100 mg at bedtime. 4. Vitamin B12 1000 mcg a day. 5. Vitamin D 2000 units a day. 6. Calcium carbonate 1000 mg b.i.d. p.r.n. 7. Aspirin 81 mg a day. ALLERGIES: Her allergies include ASPARTAME, METOPROLOL, PENTOXIFYLLINE, STEVIA , SUCRALOSE from SPLENDA, ATORVASTATIN, CLOPIDOGREL, EZETIMIBE, NIACIN, STATINS. FAMILY HISTORY: She has 9 siblings, 3 are , 1 of heart disease in his 50s. She reports that she has 1 brother who underwent bypass grafting and mitral valve replacement. He is now 82, but had the surgery when he was younger. Her mother at 77 with diabetes, congestive heart failure. A sister of a stroke and another sister of cancer related to hematologic malignancy. Her father had asthma and at 49. SOCIAL HISTORY: She lives alone independently and drives occasionally. She is , has 2 adult children. She smoked for about 20 years. Denies COPD. Her surrogate decision maker is her son, Gustavo Rodrigues. She denies caffeine or alcohol use. 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 REVIEW OF SYSTEMS: Review of systems x14 was negative except as above. PHYSICAL EXAM: She is a well-developed, frail-appearing female, in no apparent distress. Alert and oriented x3. Blood pressure 147/47, pulse of 68, O2 sat 98 % on room air. Atraumatic, normocephalic. Extraocular muscles intact. Sclerae anicteric. Carotids are 2+ without bruits. No cervical adenopathy or thyromegaly. Cardiac Exam: S1, S2 with a 2/6 systolic ejection murmur at the base and a 4/6 murmur at the apex radiating to the axilla and left lower sternal border with PMI was prominent with a heave and displaced laterally. Chest was clear with decreased breath sounds. No CVAT. Abdomen: Bowel sounds present, nontender. No hepatosplenomegaly. Femoral pulses intact with bilateral bruits. Distal pulses were not palpable. No edema. Motor strength 5 /5 bilaterally. Deep tendon reflexes are 2/4. Alert and oriented x3. DIAGNOSTIC STUDIES/LAB DATA: Labs include a sodium of 140, potassium of 4, BUN of 13, creatinine of 0.85. TSH of 0.44. White count low at 2.4, hemoglobin of 12.2, hematocrit 36.0, MCV of 100, platelet count low at 103. She had an echocardiogram performed yesterday which revealed an EF of 60% to 65% , pseudonormal filling, grade 2 diastolic dysfunction, mild RV dilatation, normal RV function, severe left atrial enlargement, moderately thickened myxomatous mitral leaflets, somewhat restricted with moderate prolapse with more prominent involvement of the posterior leaflet than the anterior leaflet. There appeared to be a flail segment of the posterior leaflet. There was axmumiye-wz-jxjwha MR, possibly severe multiple jets, and there appeared to be reversal flow in one of the pulmonary veins. Systolic pressure was moderately increased at 44 mmHg and overall was similar to the prior study of November. There was a bioprosthetic aortic valve with grossly normal function consistent with a 23 mm Biocor porcine valve. She had an electrocardiogram performed on 01/09/19 , which revealed sinus rhythm with trigeminy and bigeminy and minor nonspecific ST-T changes laterally, poor R wave progression. Similar to the EKG from yesterday. The ST change is somewhat less pronounced compared to 12/17/18. IMPRESSION: My impression is that Ms. Merida has a history of coronary artery disease, aortic valve replacement, gkphaaao-hw-grsxkd mitral regurgitation with what appears to be a flail segment of the posterior leaflet with myxomatous disease and prolapse and frequent premature ventricular contractions, nonsustained ventricular tachycardia. She also had some exercise intolerance last month which improved slightly with stopping her atenolol, but I suspect that she does have hemodynamically significant mitral regurgitation and possible coronary artery disease. The increase in ectopy and ventricular tachycardia is concerning and puts her at increased risk for morbidity and mortality. I discussed this frankly with her and with Dr. Patton and recommended the followin. I strongly recommended that she remain as an inpatient to have further evaluation of mitral valve disease and coronary artery disease. 2. I suggest that she have a transesophageal echo as proposed by Dr. Jean ( previously arranged as an outpatient next month). 3. I suggested that we perform that as an inpatient and proceed with cardiac catheterization to evaluate for significant coronary artery disease and prepare for possible intervention on her mitral valve. 4. I suggested that we add amlodipine as an antianginal given her chest pain of unclear etiology. 5. At this point, the patient understands the potential implications of the chest pain and the valve diseas including the potential for morbidity and mortality including sudden . She is not sure whether she would want to proceed with surgery if indicated. She would like to go home, attend to some matters at [facility], and discuss it with her children. I advised her against delaying further interventions; however, she is adamant about continuing her workup as an outpatient and understands the potential risks including syncope, myocardial infarction, and . At this point, I recommended the following if she decides to go home: 1. trial of amlodipine 2.5 mg a day as an antianginal blood pressure control agent. 2. . She is to avoid vigorous exertion. 3. . I suggested adding a low-dose amiodarone perhaps 200 mg a day to try to decrease her ectopy with a goal of improving her cardiac output, this would not necessarily decrease her risk of sudden . 4. She is to follow up with Dr. Jean for repeat evaluation of her symptoms and blood pressures and rhythm on her current medications. 5. I want her to continue to avoid alcohol and caffeine. 6. I would continue PPI in case there is a gastrointestinal component to her discomfort 7. I would continue aspirin. Further recommendations will depend on her clinical course. I encouraged her to discuss with her children and Dr. Jean her concerns about medical condition and her wishes regarding surgical interventions if needed and end of life decision making. [id number]/[facility] #: [id number] TRAVIS
--- NOTE | 2019-01-09 17:30 | PN ---
Subjective Date of Service: 01/09/19 Interval History: Patient doesnot have any complain at present. Says she wants to go home. After long discussion with her and her family she agreed to stay and do further evaluation. Objective Active Medications: Acetaminophen (Tylenol Tab*) 650 mg PO Q4H PRN PRN Reason: MILD PAIN or TEMP > 100.4 Amoxicillin/Clavulanate Potassium (Augmentin Tab*) 500 mg PO BID [facility] Last Admin: 01/09/19 09:09 Dose: 500 mg Aspirin (Aspirin Ec Tab*) 81 mg PO DAILY [facility] Last Admin: 01/09/19 09:09 Dose: 81 mg Calcium Carbonate (Tums*) 1,000 mg PO BID PRN PRN Reason: INDIGESTION Last Admin: 01/08/19 13:08 Dose: 1,000 mg Cholecalciferol (Vitamin D Tab*) 2,000 units PO DAILY [facility] Last Admin: 01/09/19 09:08 Dose: 2,000 units Cyanocobalamin (Vitamin B12 Tab*) 1,000 mcg PO DAILY [facility] Last Admin: 01/09/19 09:08 Dose: 1,000 mcg Gabapentin (Neurontin Cap(*)) 100 mg PO BEDTIME [facility] Last Admin: 01/08/19 21:17 Dose: 100 mg Heparin Sodium (Porcine) (Heparin Vial(*)) 5,000 units SUBCUT Q8HR [facility] Last Admin: 01/09/19 14:52 Dose: 5,000 units Lisinopril (Prinivil Tab*) 5 mg PO BEDTIME [facility] Last Admin: 01/08/19 21:18 Dose: 5 mg Multivitamins/Minerals (Theragran/Minerals Tab*) 1 tab PO DAILY [facility] Last Admin: 01/09/19 09:09 Dose: 1 tab Pantoprazole Sodium (Protonix Tab*) 40 mg PO BID [facility] Last Admin: 01/09/19 09:08 Dose: 40 mg Vital Signs - 8 hr 01/09/19 01/09/19 11:24 15:07 Temperature 97.6 F 98.0 F Pulse Rate 53 52 Respiratory 20 18 Rate Blood Pressure 135/58 124/56 (mmHg) O2 Sat by Pulse 98 97 Oximetry Oxygen Devices in Use Now: None Exam: Patient is sitting on a bed and having her breakfast. HEENT: Normal Lungs: CLear on ascultation. Heart: S1/S2 heard. Rte in 60's. Irregular with systolic murmur on right lower sternal area and on mitral area. Abdomen: soft, nondistended and nontender. Extremity: soft, nontender. bowel sound present Neuro: Alert and oriented. moving all 4 limbs. Result Diagrams: 01/09/19 05:01 01/09/19 05:01 Additional Lab and Data: Lab Results 01/08/19 Range/Units 08:18 WBC 2.6 L (3.5-10.8) 10^3/uL RBC 3.96 (3.70-4.87) 10^6 /uL Hgb 13.3 (12.0-16.0) g/dL Hct 40 (35-47) % MCV 101 H (80-97) fL MCH 34 H (27-31) pg MCHC 34 (31-36) g/dL RDW 14 (10-15) % Plt Count 118 L (150-450) 10^3/uL MPV 9.3 (7.4-10.4) fL Neut % (Auto) 54.3 % Lymph % (Auto) 28.8 % [place] % (Auto) 12.9 % Eos % (Auto) 3.2 % Baso % (Auto) 0.8 % Absolute Neuts (auto) 1.4 L (1.5-7.7) 10^3/ul Absolute Lymphs (auto) 0.7 L (1.0-4.8) 10^3/ul Absolute Monos (auto) 0.3 (0-0.8) 10^3/ul Absolute Eos (auto) 0.1 (0-0.6) 10^3/ul Absolute Basos (auto) 0.0 (0-0.2) 10^3/ul Absolute Nucleated RBC 0.0 10^3/ul Nucleated RBC % 0.0 Assess/Plan/Problems-Billing Assessment: 88 y/o F with h/o CAD, AV replacement,modderate-severe MR and PVC, Asthma, COPD , fibromyalgia presented with severe substernal chest pain with no any radiation. Found to have moderate to severe MR and nonsustained Ventricular tachycardia. - Patient Problems (1) Mitral regurgitation Current Visit: Yes Status: Acute Comment: Moderate to severe MR noted on Echo( same as november) with flail segment of posterior leaflet and prolapse. Has irregular hr with nsvt and ectopy Dr. Nevarez consulted. suggested adding amiodarone 200 mg a day and amlodipine 2.5mg (instead of lisinopril 5mg) Plan is to proceed with DELIA and catheterization evaluate valve fxn and CAD respectively. May need possible intervention on mitral valve. (2) Nonsustained ventricular tachycardia Current Visit: Yes Status: Acute Code(s): I47.2 - VENTRICULAR TACHYCARDIA SNOMED Code(s): 719077702 Comment: had 3 episodes with 7 beats. No chest pain, sob, palpitation during the episodes. may be due to underlying cad causing myocardial ischemia or due to MR. On continous tele plan is to do delia and cardiac catheterization. Cardiology following (3) UTI (urinary tract infection) Current Visit: Yes Status: Acute Comment: Had visited PCP for urinary sx. On Augmentin Not any sx at present. Urine culture is negative. (4) DVT prophylaxis Current Visit: No Status: Acute Code(s): Z29.9 - ENCOUNTER FOR PROPHYLACTIC MEASURES, UNSPECIFIED SNOMED Code(s): 526109437 Comment: On heparin sc (5) Full code status Current Visit: No Status: Acute Code(s): Z78.9 - OTHER SPECIFIED HEALTH STATUS SNOMED Code(s): 721481057 Status and Disposition: Inpatient Attending: Mj Patton Attestation Documenting Resident: Tyree Govea Supervising Physician: Mj Patton Attending/Supervising Physician Comment: severe MVR with flail leaflet, frequent ectopy(brief VT) with recommendation to pursue DELIA and LHC to define next steps. Had lengthy discussion with the patient where she repeatedly was unable to focus on her medical condition, the potential risks of leaving or benefits of staying. Repeatedly (asked in slightly different ways more than 10 times) and would invariably steer question back to concerns about her cat, her desire to go home, her and desire that her condition would have been dealt with a long time ago. She was not able to prove her capacity to me despite given multiple opportunities. We called her son Evaristo Rodrigues who assured her cat could be well cared for, encouraged her to stay for further evaluation and she then said she would stay. amio 200mg po BID amldopine 2.5mg start, stop lisinopril. DELIA likely friday, possible LHC? Attestation: This service has been performed in part by a resident under the direction of a teaching physician.I, Mj Patton, performed the service, or was physically present during the critical, or noel portions of the service, furnished by the resident. I participated in the management of the patient.
[2019-01-09] MEDS: Amiodarone TAB* 200 MG PO SCH ×2 (19:51→20:07)
[2019-01-09] MEDS: amLODIPine TAB* 5 MG PO SCH (20:52)
[2019-01-09] MEDS: Gabapentin CAP(*) 100 MG PO SCH (20:53)
[2019-01-10] MEDS: Heparin VIAL(*) 5000 UNITS/ML VIAL (FIVE THOUSAND) SUBCUT SCH ×3 (05:54→21:10)
[2019-01-10 06:33] LABS: ABS Eosinophils 0.1 10^3/ul (0-0.6); ABS Lymphocytes 0.6 10^3/ul (1.0-4.8); ABS Monocytes 0.3 10^3/ul (0-0.8); ABS Neutrophils 1.8 10^3/ul (1.5-7.7); Eosinophil % 4.5 %; Hematocrit 39 % (35-47); Hemoglobin 13.4 g/dL (12.0-16.0); Lymphocyte % 21.5 %; Mean Corpuscular HGB Conc 35 g/dL (31-36); Mean Corpuscular Hemoglobin 35 pg (27-31); Mean Corpuscular Volume 100 fL (80-97); Mean Platelet Volume 9.6 fL (7.4-10.4); Platelet Count 112 10^3/uL (150-450); Red Blood Count 3.89 10^6 /uL (3.70-4.87); Red Cell Distribution Width 14 % (10-15)
[2019-01-10 06:46] LABS: BUN/Creatinine Ratio 19.8 (8-20); Calcium 9.4 mg/dL (8.6-10.3); EGFR African American 80.9 (>60); EGFR Non-African American 66.9 (>60); Potassium 3.9 mmol/L (3.5-5.0)
[2019-01-10] MEDS: Pantoprazole TAB * 40 MG TAB PO SCH ×2 (08:50→21:09)
[2019-01-10] MEDS: Amiodarone TAB* 200 MG PO SCH ×2 (08:51→18:23)
[2019-01-10] MEDS: Amoxicillin/Clavulanate TAB* 500 MG PO SCH ×2 (08:53→21:09)
[2019-01-10] MEDS: Aspirin EC TAB* 81 MG TAB.EC PO SCH (08:53)
[2019-01-10] MEDS: Cholecalciferol TAB* 1000 UNITS PO SCH (08:54)
[2019-01-10] MEDS: Cyanocobalamin TAB* 500 MCG PO SCH (08:54)
[2019-01-10] MEDS: Multivitamins/Minerals TAB PO SCH (08:54)
[2019-01-10] MEDS ORDERED: Amiodarone TAB* 200 MG PO SCH (09:00)
[2019-01-10] MEDS: amLODIPine TAB* 5 MG PO SCH (09:00)
[2019-01-10] MEDS: Calcium Carbonate CHEW TAB* 500 MG (TUMS) PO PRN ×2 (09:12→14:30)
[2019-01-10] MEDS ORDERED: Potassium Chloride* LIQUID 20 MEQ/15 ML UDC PO ONE ×2 (10:17→11:33)
[2019-01-10] MEDS ORDERED: amLODIPine TAB* 5 MG PO ONE (11:36)
--- NOTE | 2019-01-10 12:21 | PN ---
Subjective Interval History: right lower (vs near umbilicus) cramping pain 5/10 overnight. 2 loose but not watery BMs. to bed at 3am. No SOB. can feel ectopy still. No chest pain just now with 3 short transient jolts of sharper left groin pain. Afebrile. Less frequent VT on tele. Objective Active Medications: Acetaminophen (Tylenol Tab*) 650 mg PO Q4H PRN PRN Reason: MILD PAIN or TEMP > 100.4 Amiodarone HCl (Cordarone Tab*) 100 mg PO DAILY [facility] Amlodipine Besylate (Norvasc Tab*) 2.5 mg PO DAILY [facility] Last Admin: 01/10/19 09:00 Dose: 2.5 mg Amoxicillin/Clavulanate Potassium (Augmentin Tab*) 500 mg PO BID [facility] Last Admin: 01/10/19 08:53 Dose: 500 mg Aspirin (Aspirin Ec Tab*) 81 mg PO DAILY [facility] Last Admin: 01/10/19 08:53 Dose: 81 mg Calcium Carbonate (Tums*) 1,000 mg PO BID PRN PRN Reason: INDIGESTION Last Admin: 01/10/19 09:12 Dose: 1,000 mg Cholecalciferol (Vitamin D Tab*) 2,000 units PO DAILY [facility] Last Admin: 01/10/19 08:54 Dose: 2,000 units Cyanocobalamin (Vitamin B12 Tab*) 1,000 mcg PO DAILY [facility] Last Admin: 01/10/19 08:54 Dose: 1,000 mcg Gabapentin (Neurontin Cap(*)) 100 mg PO BEDTIME [facility] Last Admin: 01/09/19 20:53 Dose: 100 mg Heparin Sodium (Porcine) (Heparin Vial(*)) 5,000 units SUBCUT Q8HR [facility] Last Admin: 01/10/19 05:54 Dose: 5,000 units Multivitamins/Minerals (Theragran/Minerals Tab*) 1 tab PO DAILY [facility] Last Admin: 01/10/19 08:54 Dose: 1 tab Pantoprazole Sodium (Protonix Tab*) 40 mg PO BID [facility] Last Admin: 01/10/19 08:50 Dose: 40 mg Potassium Chloride (Klor Con Er Tab*) 20 meq PO DAILY [facility] Vital Signs - 8 hr 01/10/19 01/10/19 01/10/19 04:20 07:00 08:00 Temperature 97.8 F 97.6 F Pulse Rate 67 81 Respiratory 18 16 16 Rate Blood Pressure 129/50 138/53 (mmHg) O2 Sat by Pulse 96 97 Oximetry 01/10/19 11:00 Temperature 97.5 F Pulse Rate 77 Respiratory 16 Rate Blood Pressure 158/64 (mmHg) O2 Sat by Pulse Oximetry Oxygen Devices in Use Now: None Appearance: NAD, sitting on side of bed Eyes: No Scleral Icterus Ears/Nose/Mouth/Throat: NL Teeth, Lips, Gums Neck: NL Appearance and Movements; NL JVP Respiratory: Symmetrical Chest Expansion and Respiratory Effort, Clear to Auscultation Cardiovascular: - - 4/6 MAXX at LLSB/and 5th intercostal mid clavicular Abdominal: NL Sounds; No Tenderness; No Distention, - - no pain to palpation. Extremities: No Edema Skin: No Rash or Ulcers Neurological: Alert and Oriented x 3, NL Sensation Nutrition: Taking PO's Result Diagrams: 01/10/19 05:58 01/10/19 05:58 Additional Lab and Data: Laboratory Results - last 24 hr 01/10/19 01/10/19 05:58 05:58 WBC 3.0 L RBC 3.89 Hgb 13.4 Hct 39 MCV 100 H MCH 35 H MCHC 35 RDW 14 Plt Count 112 L MPV 9.6 Neut % (Auto) 61.5 Lymph % (Auto) 21.5 [place] % (Auto) 11.6 Eos % (Auto) 4.5 Baso % (Auto) 0.9 Absolute Neuts (auto) 1.8 Absolute Lymphs (auto) 0.6 L Absolute Monos (auto) 0.3 Absolute Eos (auto) 0.1 Absolute Basos (auto) 0.0 Absolute Nucleated RBC 0.0 Nucleated RBC % 0.0 Sodium 140 Potassium 3.9 Chloride 109 Carbon Dioxide 27 Anion Gap 4 BUN 16 Creatinine 0.81 Est GFR ( Amer) 80.9 Est GFR (Non-Af Amer) 66.9 BUN/Creatinine Ratio 19.8 Glucose 107 H Calcium 9.4 Microbiology and Other Data: Microbiology 01/08/19 11:15 Urine Urine Culture - Final No Growth (<1,000 CFU/mL) Assess/Plan/Problems-Billing Assessment: 88 y/o F with h/o CAD, s/p AV replacement, moderate-severe MVR and PVC, Asthma, COPD, fibromyalgia presented with severe substernal chest pain with no radiation. Found to have moderate to severe MVRegurg and moderate prolapse with posterior leaflet suspected to be flail and multiple jets. Nonsustained Ventricular tachycardia. Cardiology started on amio, awaiting DELIA to further clarify and may need LHC. - Patient Problems (1) Mitral regurgitation Current Visit: Yes Status: Acute Comment: Moderate to severe MR noted on Echo( same as november) with flail segment of posterior leaflet and prolapse. reduced frequency of nsvt and ectopy on the amiodarone (started 01/09) Appreciate cardiology recs. reduced amiodarone 100 mg a day from 200mg BID ( given some abdominal pain. Increased amlodipine from 2.5mg to 5mg (formerly was lisinopril 5mg) Plan is to proceed with DELIA and catheterization evaluate valve fxn and CAD respectively. May need possible intervention on mitral valve. She currently limited ability to discuss her heart condition and son may need to consent (2) Nonsustained ventricular tachycardia Current Visit: Yes Status: Acute Code(s): I47.2 - VENTRICULAR TACHYCARDIA SNOMED Code(s): 400746773 Comment: had 3 episodes with 7 beats. No chest pain, sob, palpitation during the episodes. may be due to underlying cad causing myocardial ischemia or due to MR. On continous tele plan is to do delia and cardiac catheterization. Cardiology following (3) UTI (urinary tract infection) Current Visit: Yes Status: Acute Comment: Had visited PCP for urinary sx. On Augmentin prior to admission. Not any sx at present. Urine culture here is negative. (4) DVT prophylaxis Current Visit: No Status: Acute Code(s): Z29.9 - ENCOUNTER FOR PROPHYLACTIC MEASURES, UNSPECIFIED SNOMED Code(s): 674237058 Comment: On heparin sc (5) Full code status Current Visit: No Status: Acute Code(s): Z78.9 - OTHER SPECIFIED HEALTH STATUS SNOMED Code(s): 290705122 Status and Disposition: Inpatient
[2019-01-10] MEDS: Gabapentin CAP(*) 100 MG PO SCH (21:09)
[2019-01-10] MEDS ORDERED: Magnesium Sulfate 2 GM IV* 2 GM/50 ML BAG IVPB ONE (23:25)
[2019-01-11] MEDS: Heparin VIAL(*) 5000 UNITS/ML VIAL (FIVE THOUSAND) SUBCUT SCH ×3 (05:01→21:05)
[2019-01-11] MEDS: amLODIPine TAB* 5 MG PO SCH (09:32)
[2019-01-11] MEDS: Aspirin EC TAB* 81 MG TAB.EC PO SCH (09:33)
[2019-01-11] MEDS: Cholecalciferol TAB* 1000 UNITS PO SCH (09:34)
[2019-01-11] MEDS: Multivitamins/Minerals TAB PO SCH (09:34)
[2019-01-11] MEDS: Potassium Chlor TAB* 20 MEQ TAB.ER PO SCH (09:35)
[2019-01-11] MEDS: Amoxicillin/Clavulanate TAB* 500 MG PO SCH (09:35)
[2019-01-11] MEDS: Cyanocobalamin TAB* 500 MCG PO SCH (09:36)
[2019-01-11] MEDS: Amiodarone TAB* 200 MG PO SCH (09:36)
[2019-01-11] MEDS: Pantoprazole TAB * 40 MG TAB PO SCH ×2 (09:37→21:04)
[2019-01-11] MEDS ORDERED: fentaNYL* 50 MCG/ML 2 ML VIAL (100 MCG VIAL) ONE (10:52)
[2019-01-11] MEDS ORDERED: Flumazenil* 0.1 MG/ML 5 ML MDV ONE (10:52)
[2019-01-11] MEDS ORDERED: Lidocaine 2% VISCOUS* 15 ML UDC ONE (10:52)
[2019-01-11] MEDS ORDERED: Midazolam* 1 MG/ML 5 ML VIAL (5 MG) ONE (10:52)
[2019-01-11] MEDS ORDERED: Naloxone* 0.4 MG/ML 1 ML VIAL ONE (10:52)
--- NOTE | 2019-01-11 13:40 | TEE ---
*[facility]* [place] [address] Fax #: [phone] Transesophageal Echocardiogram Patient: Gifty Merida : 1930 Study Date: 01/11/2019 Age: 88 Gender: F HR: 64 bpm Height: 66 in /167.6 cm BSA: 1.58 m^2 Weight: 118.8 lb /54 kg BMI: 19.2 kg/m^2 *Site Manager: * Magdalena Schmidt [facility] *Referring Physician: * Jason Nevarez MD *Reading Physician: * Rah Rivas MD Indications: Mitral lnsufficiency. History: Coronary artery disease. Rheumatic Fever. Chronic obstructive pulmonary disease. Risk factors: Former tobacco use. Hypertension. Hyperlipidemia. Labs, prior tests, procedures, and surgery: Valve surgery (2005). Aortic valve replacement with a 23 mmBiocor porcine valve. Conclusions Summary: - Left ventricle: Systolic function is normal. The estimated ejection fraction is 60-65%, by visual assessment. Wall motion is normal; there are no regional wall motion abnormalities. - Left atrium: The atrium is severely dilated. - Atrial septum: A PFO is not demonstrated by color Doppler. - Mitral valve: Moderate prolapse, involving the posterior leaflet. There is no evidence of stenosis. There is moderate regurgitation. - Aortic valve: There is a bioprosthetic valve. There is no evidence of stenosis. There is no significant regurgitation. - Tricuspid valve: There is mild regurgitation. - Aorta: There is mild non-mobile atherosclerotic plaque visualized in the Descending and Transverse Aorta. - Pulmonary veins: Visualization of the pulmonary venous anatomy is incomplete, but a significant abnormality is unlikely. Study data: Diagnostic Transesophageal Echocardiogram Consent: The risks and benefits of the procedure, including alternatives were discussed with the patient and/or their health care sales representative canvas products and written informed consent was obtained. Procedure: Initial setup: The patient was brought to the laboratory in the fasting state.Intravenous access was obtained. Surface ECG leads, heart rate, heart rhythm, blood pressure measurements, pulse oximetric signals, and mainstream end-tidal CO2 tracings were monitored throughout the procedure. Sedation. Moderate sedation was administered by nursing staff. History and physical as well as labs were reviewed. The patient was placed in the left lateral decubitus position. Topical anesthesia was obtained using viscous lidocaine. A transesophageal probe was inserted by the attending nuclear fuels research engineer. Transesophageal echocardiography was performed, image quality was adequate, and all standard views were attempted within the limitations of patient tolerance and safety. Multiple 2D, color flow Doppler and spectral Doppler images were obtained. The transesophageal probe was removed. Location: Procedure room. Patient status: Inpatient. Patient room number: 443-2. Study completion: The patient tolerated the procedure well. There were no complications. Administered medications: Midazolam, 3mg. Fentanyl, 25mcg. Rhythm: Normal sinus rhythm with PVC's. Trigeminy. Findings Left ventricle: The cavity size is normal. Systolic function is normal. The estimated ejection fraction is 60-65%, by visual assessment. Wall motion is normal; there are no regional wall motion abnormalities. Right ventricle: The cavity size is mildly dilated. Systolic function is normal. Left atrium: The atrium is severely dilated. Emptying velocity is normal. There is no evidence of a thrombus in the atrial cavity or appendage. Right atrium: The atrium is mildly dilated. Atrial septum: A PFO is not demonstrated by color Doppler. A Bubble study was performed on a prior study and was not repeated today. Mitral valve: The leaflets are moderately thickened. Moderate prolapse, involving the posterior leaflet. There is no evidence of stenosis. There is moderate regurgitation. Aortic valve: There is a bioprosthetic valve. The leaflets are normal thickness. There is no evidence of stenosis. There is no significant regurgitation. Tricuspid valve: There is no evidence of stenosis. There is mild regurgitation. Pulmonic valve: There is no evidence of stenosis. There is trace regurgitation. Aorta: There is mild non-mobile atherosclerotic plaque visualized in the Descending and Transverse Aorta. The aortic root appears normal. The ascending aorta appears normal. Pericardium: There is no significant pericardial effusion. Pulmonary arteries: The main pulmonary artery is normal-sized. Systemic veins: Inferior vena cava: The vessel is dilated. Superior vena cava: The vessel is appears normal. Pulmonary veins: Visualization of the pulmonary venous anatomy is incomplete, but a significant abnormality is unlikely. 1 of 4 visualized. Measurements LVOT Value Ref Mitral valve continued Value Ref Diam, S 2.04 cm --------- Max MR v 5.85 m/sec ---- Area 3.3 cm^2 --------- Regurg VTI 187.9 cm ---- ERO, PISA 0.17 cm^2 ---- Aortic valve Value Ref Gifty diam, S 1.9 cm 1.9 - 2.7 Aortic root Value Ref Peak v, S 2.7 m/sec --------- Root diam 3.1 cm <3.8 Peak grad, S 29.1 mm Hg --------- Ascending aorta Value Ref Mitral valve Value Ref AAo AP diam, S 3.4 cm ---- MR peak v 5.85 m/sec --------- Legend: (L) and (H) salena values outside specified reference range. Prepared and electronically signed by Rah Rivas MD 01/11/2019 13:39
--- NOTE | 2019-01-11 18:37 | PN ---
Subjective Date of Service: 01/11/19 Interval History: Patient had no chest pain overnight. She had no complain today, eager to go home. Objective Active Medications: Acetaminophen (Tylenol Tab*) 650 mg PO Q4H PRN PRN Reason: MILD PAIN or TEMP > 100.4 Amiodarone HCl (Cordarone Tab*) 100 mg PO DAILY [facility] Last Admin: 01/11/19 09:36 Dose: 100 mg Amlodipine Besylate (Norvasc Tab*) 2.5 mg PO DAILY [facility] Last Admin: 01/11/19 09:32 Dose: 2.5 mg Amoxicillin/Clavulanate Potassium (Augmentin Tab*) 500 mg PO BID [facility] Last Admin: 01/11/19 09:35 Dose: 500 mg Aspirin (Aspirin Ec Tab*) 81 mg PO DAILY [facility] Last Admin: 01/11/19 09:33 Dose: 81 mg Calcium Carbonate (Tums*) 1,000 mg PO BID PRN PRN Reason: INDIGESTION Last Admin: 01/10/19 14:30 Dose: 1,000 mg Cholecalciferol (Vitamin D Tab*) 2,000 units PO DAILY [facility] Last Admin: 01/11/19 09:34 Dose: 2,000 units Cyanocobalamin (Vitamin B12 Tab*) 1,000 mcg PO DAILY [facility] Last Admin: 01/11/19 09:36 Dose: 1,000 mcg Gabapentin (Neurontin Cap(*)) 100 mg PO BEDTIME [facility] Last Admin: 01/10/19 21:09 Dose: 100 mg Heparin Sodium (Porcine) (Heparin Vial(*)) 5,000 units SUBCUT Q8HR [facility] Last Admin: 01/11/19 14:58 Dose: 5,000 units Multivitamins/Minerals (Theragran/Minerals Tab*) 1 tab PO DAILY [facility] Last Admin: 01/11/19 09:34 Dose: 1 tab Pantoprazole Sodium (Protonix Tab*) 40 mg PO BID [facility] Last Admin: 01/11/19 09:37 Dose: 40 mg Potassium Chloride (Klor Con Er Tab*) 20 meq PO DAILY [facility] Last Admin: 01/11/19 09:35 Dose: 20 meq Vital Signs - 8 hr 01/11/19 01/11/19 01/11/19 10:35 10:38 11:18 Temperature 98.3 F Pulse Rate 39 64 Respiratory 21 Rate Blood Pressure 142/76 136/59 (mmHg) O2 Sat by Pulse 98 98 Oximetry 01/11/19 01/11/19 01/11/19 11:23 11:30 11:37 Temperature Pulse Rate 46 50 Respiratory Rate Blood Pressure 122/88 147/77 140/105 (mmHg) O2 Sat by Pulse 96 95 Oximetry 01/11/19 01/11/19 01/11/19 11:43 11:48 11:53 Temperature Pulse Rate 55 45 55 Respiratory Rate Blood Pressure 113/61 114/51 129/48 (mmHg) O2 Sat by Pulse 92 93 90 Oximetry 01/11/19 01/11/19 01/11/19 11:58 12:01 12:06 Temperature Pulse Rate 48 41 50 Respiratory Rate Blood Pressure 129/65 124/62 (mmHg) O2 Sat by Pulse 92 93 91 Oximetry 01/11/19 01/11/19 01/11/19 12:08 14:00 15:00 Temperature 98.7 F 97.5 F Pulse Rate 49 60 57 Respiratory 16 17 Rate Blood Pressure 127/49 126/38 117/48 (mmHg) O2 Sat by Pulse 87 98 98 Oximetry Oxygen Devices in Use Now: None Exam: comfortable looking Heart: normal S1 S2, 4/6 systolic murmur over LLSB and 5th intercostal space. Lung: clear Abdomen: soft non tender Extremities: no edema Neurological: alert and oriented x 3 Result Diagrams: 01/10/19 05:58 01/10/19 05:58 Additional Lab and Data: Laboratory Results - last 24 hr 01/10/19 01/10/19 05:58 05:58 WBC 3.0 L RBC 3.89 Hgb 13.4 Hct 39 MCV 100 H MCH 35 H MCHC 35 RDW 14 Plt Count 112 L MPV 9.6 Neut % (Auto) 61.5 Lymph % (Auto) 21.5 [place] % (Auto) 11.6 Eos % (Auto) 4.5 Baso % (Auto) 0.9 Absolute Neuts (auto) 1.8 Absolute Lymphs (auto) 0.6 L Absolute Monos (auto) 0.3 Absolute Eos (auto) 0.1 Absolute Basos (auto) 0.0 Absolute Nucleated RBC 0.0 Nucleated RBC % 0.0 Sodium 140 Potassium 3.9 Chloride 109 Carbon Dioxide 27 Anion Gap 4 BUN 16 Creatinine 0.81 Est GFR ( Amer) 80.9 Est GFR (Non-Af Amer) 66.9 BUN/Creatinine Ratio 19.8 Glucose 107 H Calcium 9.4 Microbiology and Other Data: Microbiology 01/08/19 11:15 Urine Urine Culture - Final No Growth (<1,000 CFU/mL) Assess/Plan/Problems-Billing Assessment: 88 y/o F with h/o CAD, s/p AV replacement, moderate-severe MVR and PVC, Asthma, COPD, fibromyalgia presented with severe substernal chest pain with no radiation. Found to have moderate to severe MVRegurg and moderate prolapse with posterior leaflet suspected to be flail and multiple jets. Nonsustained Ventricular tachycardia. Cardiology started on amio, awaiting DELIA to further clarify and may need LHC. - Patient Problems (1) Mitral regurgitation Current Visit: Yes Status: Acute Comment: Moderate to severe MR noted on Echo( same as november) with flail segment of posterior leaflet and prolapse. reduced frequency of nsvt and ectopy on the amiodarone (started 01/09) Appreciate cardiology recs. reduced amiodarone 100 mg a day from 200mg BID ( given some abdominal pain. Increased amlodipine from 2.5mg to 5mg (formerly was lisinopril 5mg) Plan is to proceed with DELIA and catheterization evaluate valve fxn and CAD respectively. May need possible intervention on mitral valve.DELIA today. (2) Nonsustained ventricular tachycardia Current Visit: Yes Status: Acute Code(s): I47.2 - VENTRICULAR TACHYCARDIA SNOMED Code(s): 151666800 Comment: had 3 episodes with 7 beats. No chest pain, sob, palpitation during the episodes. may be due to underlying cad causing myocardial ischemia or due to MR. On continous tele plan is to do delia and cardiac catheterization. Cardiology following (3) UTI (urinary tract infection) Current Visit: Yes Status: Acute Comment: Had visited PCP for urinary sx, pansensitive E.coli was found 01/05 On Augmentin prior to admission. Urine culture here is negative. stop Augmentin (4) DVT prophylaxis Current Visit: No Status: Acute Code(s): Z29.9 - ENCOUNTER FOR PROPHYLACTIC MEASURES, UNSPECIFIED SNOMED Code(s): 151027467 Comment: On heparin sc (5) Full code status Current Visit: No Status: Acute Code(s): Z78.9 - OTHER SPECIFIED HEALTH STATUS SNOMED Code(s): 292117193 Status and Disposition: Inpatient, planning for discharge soon if no plan from cardiology side. Attestation Documenting Resident: Veronica Be Supervising Physician: Pablo Godwin Attestation: This service has been performed in part by a resident under the direction of a teaching physician.I, Pablo Godwin, performed the service, or was physically present during the critical, or noel portions of the service, furnished by the resident. I participated in the management of the patient.
[2019-01-11] MEDS: Gabapentin CAP(*) 100 MG PO SCH (21:04)
[2019-01-12] MEDS: Calcium Carbonate CHEW TAB* 500 MG (TUMS) PO PRN (03:58)
[2019-01-12] MEDS: Heparin VIAL(*) 5000 UNITS/ML VIAL (FIVE THOUSAND) SUBCUT SCH ×2 (05:15→15:01)
--- NOTE | 2019-01-12 08:59 | PN ---
Subjective Date of Service: 01/12/19 Interval History: Pt complained of poor sleep overnight. No chest pain recurrence. Noted ROSAMARIA yesterday only moderate mitral valve insufficiency found. Plan: discharge home today continue amilodipine 2.5mg for antianginal effect continue amiodarone 100mg to decrease ectopy Objective Active Medications: Acetaminophen (Tylenol Tab*) 650 mg PO Q4H PRN PRN Reason: MILD PAIN or TEMP > 100.4 Last Admin: 01/12/19 05:15 Dose: 650 mg Amiodarone HCl (Cordarone Tab*) 100 mg PO DAILY [facility] Last Admin: 01/11/19 09:36 Dose: 100 mg Amlodipine Besylate (Norvasc Tab*) 2.5 mg PO DAILY [facility] Last Admin: 01/11/19 09:32 Dose: 2.5 mg Aspirin (Aspirin Ec Tab*) 81 mg PO DAILY [facility] Last Admin: 01/11/19 09:33 Dose: 81 mg Calcium Carbonate (Tums*) 1,000 mg PO BID PRN PRN Reason: INDIGESTION Last Admin: 01/12/19 03:58 Dose: 1,000 mg Cholecalciferol (Vitamin D Tab*) 2,000 units PO DAILY [facility] Last Admin: 01/11/19 09:34 Dose: 2,000 units Cyanocobalamin (Vitamin B12 Tab*) 1,000 mcg PO DAILY [facility] Last Admin: 01/11/19 09:36 Dose: 1,000 mcg Gabapentin (Neurontin Cap(*)) 100 mg PO BEDTIME [facility] Last Admin: 01/11/19 21:04 Dose: 100 mg Heparin Sodium (Porcine) (Heparin Vial(*)) 5,000 units SUBCUT Q8HR [facility] Last Admin: 01/12/19 05:15 Dose: 5,000 units Multivitamins/Minerals (Theragran/Minerals Tab*) 1 tab PO DAILY [facility] Last Admin: 01/11/19 09:34 Dose: 1 tab Pantoprazole Sodium (Protonix Tab*) 40 mg PO BID [facility] Last Admin: 01/11/19 21:04 Dose: 40 mg Potassium Chloride (Klor Con Er Tab*) 20 meq PO DAILY [facility] Last Admin: 01/11/19 09:35 Dose: 20 meq Vital Signs - 8 hr 01/12/19 01/12/19 03:57 07:00 Temperature 98.5 F 98.1 F Pulse Rate 63 67 Respiratory 16 18 Rate Blood Pressure 133/50 132/80 (mmHg) O2 Sat by Pulse 94 99 Oximetry Oxygen Devices in Use Now: None Exam: Well, comfortable sitting on the chair. Heart: S1S2, left systolic murmur loudest at LLSB Lung: clear Abdomen: soft, non tender extremity: no swelling. Result Diagrams: 01/10/19 05:58 01/10/19 05:58 Additional Lab and Data: Laboratory Results - last 24 hr 01/10/19 01/10/19 05:58 05:58 WBC 3.0 L RBC 3.89 Hgb 13.4 Hct 39 MCV 100 H MCH 35 H MCHC 35 RDW 14 Plt Count 112 L MPV 9.6 Neut % (Auto) 61.5 Lymph % (Auto) 21.5 [place] % (Auto) 11.6 Eos % (Auto) 4.5 Baso % (Auto) 0.9 Absolute Neuts (auto) 1.8 Absolute Lymphs (auto) 0.6 L Absolute Monos (auto) 0.3 Absolute Eos (auto) 0.1 Absolute Basos (auto) 0.0 Absolute Nucleated RBC 0.0 Nucleated RBC % 0.0 Sodium 140 Potassium 3.9 Chloride 109 Carbon Dioxide 27 Anion Gap 4 BUN 16 Creatinine 0.81 Est GFR ( Amer) 80.9 Est GFR (Non-Af Amer) 66.9 BUN/Creatinine Ratio 19.8 Glucose 107 H Calcium 9.4 Microbiology and Other Data: Microbiology 01/08/19 11:15 Urine Urine Culture - Final No Growth (<1,000 CFU/mL) Assess/Plan/Problems-Billing Assessment: 88 y/o F with h/o CAD, s/p AV replacement, moderate-severe MVR and PVC, Asthma, COPD, fibromyalgia presented with severe substernal chest pain with no radiation. Found to have moderate to severe MVRegurg and moderate prolapse with posterior leaflet in TTE, and confirmed in ROSAMARIA. NSVT was also found this admission, amiodarone was started aiming to decrease ectopy. - Patient Problems (1) Mitral regurgitation Status: Acute Comment: Moderate to severe MR noted on Echo( same as november) with flail segment of posterior leaflet and prolapse. reduced frequency of nsvt and ectopy on the amiodarone (started 01/09) ROSAMARIA was done to evaluate valve fxn, no further catherization needed amlodipine was added for antianginal effect. (2) Nonsustained ventricular tachycardia Status: Acute Code(s): I47.2 - VENTRICULAR TACHYCARDIA SNOMED Code(s): 307242411 Comment: had 3 episodes with 7 beats. No chest pain, sob, palpitation during the episodes. on amiodarone (3) UTI (urinary tract infection) Status: Acute Comment: Had visited PCP for urinary sx, pansensitive E.coli was found 01/05 On Augmentin prior to admission. Urine culture here is negative. stop Augmentin (4) DVT prophylaxis Status: Acute Code(s): Z29.9 - ENCOUNTER FOR PROPHYLACTIC MEASURES, UNSPECIFIED SNOMED Code(s): 793436981 Comment: On heparin sc (5) Full code status Status: Acute Code(s): Z78.9 - OTHER SPECIFIED HEALTH STATUS SNOMED Code(s) : 018330953 Status and Disposition: Discharge today. Attestation Documenting Resident: Veronica Be Supervising Physician: Pablo Gdowin Attestation: This service has been performed in part by a resident under the direction of a teaching physician.I, Pablo Godwin, performed the service, or was physically present during the critical, or noel portions of the service, furnished by the resident. I participated in the management of the patient.
[2019-01-12] MEDS: Potassium Chlor TAB* 20 MEQ TAB.ER PO SCH (09:00)
[2019-01-12] MEDS: Multivitamins/Minerals TAB PO SCH (09:01)
[2019-01-12] MEDS: Cyanocobalamin TAB* 500 MCG PO SCH (09:02)
[2019-01-12] MEDS: Aspirin EC TAB* 81 MG TAB.EC PO SCH (09:02)
[2019-01-12] MEDS: Pantoprazole TAB * 40 MG TAB PO SCH (09:02)
[2019-01-12] MEDS: Cholecalciferol TAB* 1000 UNITS PO SCH (09:02)
[2019-01-12] MEDS: amLODIPine TAB* 5 MG PO SCH (09:03)
[2019-01-12] MEDS: Amiodarone TAB* 200 MG PO SCH (09:04)
--- NOTE | 2019-01-12 10:04 | PN ---
Subjective Date of Service: 01/12/19 - Troponin elevation, substernal chest pain, NSVT Interval History: No events last night, patient sitting in chair and offers no complaints. She states she came in and called 911 due to substernal chest pain, no dizziness, syncope or shortness of breath. She states on occasion with exertion she will feel palpitations but has not had any in the past 24 hours. currently asymptomatic. Medications Active Medications: Acetaminophen (Tylenol Tab*) 650 mg PO Q4H PRN PRN Reason: MILD PAIN or TEMP > 100.4 Last Admin: 01/12/19 05:15 Dose: 650 mg Amiodarone HCl (Cordarone Tab*) 100 mg PO DAILY [facility] Last Admin: 01/12/19 09:04 Dose: 100 mg Amlodipine Besylate (Norvasc Tab*) 2.5 mg PO DAILY [facility] Last Admin: 01/12/19 09:03 Dose: 2.5 mg Aspirin (Aspirin Ec Tab*) 81 mg PO DAILY [facility] Last Admin: 01/12/19 09:02 Dose: 81 mg Calcium Carbonate (Tums*) 1,000 mg PO BID PRN PRN Reason: INDIGESTION Last Admin: 01/12/19 03:58 Dose: 1,000 mg Cholecalciferol (Vitamin D Tab*) 2,000 units PO DAILY [facility] Last Admin: 01/12/19 09:02 Dose: 2,000 units Cyanocobalamin (Vitamin B12 Tab*) 1,000 mcg PO DAILY [facility] Last Admin: 01/12/19 09:02 Dose: 1,000 mcg Gabapentin (Neurontin Cap(*)) 100 mg PO BEDTIME [facility] Last Admin: 01/11/19 21:04 Dose: 100 mg Heparin Sodium (Porcine) (Heparin Vial(*)) 5,000 units SUBCUT Q8HR [facility] Last Admin: 01/12/19 05:15 Dose: 5,000 units Multivitamins/Minerals (Theragran/Minerals Tab*) 1 tab PO DAILY [facility] Last Admin: 01/12/19 09:01 Dose: 1 tab Pantoprazole Sodium (Protonix Tab*) 40 mg PO BID [facility] Last Admin: 01/12/19 09:02 Dose: 40 mg Potassium Chloride (Klor Con Er Tab*) 20 meq PO DAILY [facility] Last Admin: 01/12/19 09:00 Dose: 20 meq Objective Vital Signs: Temp Pulse Resp BP Pulse Ox 98.1 F 67 18 132/80 99 01/12/19 07:00 01/12/19 07:00 01/12/19 07:00 01/12/19 07:00 01/12/19 07:00 Oxygen Devices in Use Now: None Appearance: Sitting in chair, offers no complaints, A+O x3 Ears/Nose/Mouth/Throat: NL Teeth, Lips, Gums, Mucous Membranes Moist Neck: NL Appearance and Movements; NL JVP, Trachea Midline Respiratory: Symmetrical Chest Expansion and Respiratory Effort, Clear to Auscultation Cardiovascular: No Edema, - - Normal S1, S2, RRR. + mitral diastolic murmur. + harash right bruit. Neurological: Alert and Oriented x 3 Lines/Tubes/Other Access: Clean, Dry and Intact Peripheral IV Laboratory Results: 01/10/19 05:58 01/10/19 05:58 INR (Anticoag Therapy) 1.06 (0.82-1.09) 01/08/19 08:18 Total Bilirubin 0.70 mg/dL (0.2-1.0) 01/09/19 05:01 AST 17 U/L (13-39) 01/09/19 05:01 ALT 10 U/L (7-52) 01/09/19 05:01 Alkaline Phosphatase 41 U/L (34-104) 01/09/19 05:01 Total Protein 5.1 g/dL (6.4-8.9) L 01/09/19 05:01 Albumin 3.0 g/dL (3.2-5.2) L 01/09/19 05:01 Globulin 2.1 g/dL (2-4) 01/09/19 05:01 Albumin/Globulin Ratio 1.4 (1-3) 01/09/19 05:01 Triglycerides 70 mg/dL 01/09/19 05:01 Cholesterol 140 mg/dL 01/09/19 05:01 LDL Cholesterol 73 mg/dL 01/09/19 05:01 HDL Cholesterol 53.4 mg/dL 01/09/19 05:01 TSH 0.77 mcIU/mL (0.34-5.60) 01/09/19 05:01 01/08/19 01/08/19 01/08/19 08:18 11:20 14:23 Troponin I 0.03 0.03 0.04 H* 01/08/19 01/08/19 01/08/19 18:35 21:36 23:46 Troponin I 0.04 H* 0.04 H* 0.04 H* Diagnostic Imaging: *[facility]* [place] [address] Fax #: [phone] Transesophageal Echocardiogram Patient: Gifty Merida : 1930 Study Date: 01/11/2019 Age: 88 Gender: F HR: 64 bpm Height: 66 in /167.6 cm BSA: 1.58 m^2 Weight: 118.8 lb /54 kg BMI: 19.2 kg/m^2 *Machine Heel Sprayer: * Magdalena Schmidt RD *Referring Physician: * Jason Nevarez MD *Reading Physician: * Rah Rivas MD Indications: Mitral lnsufficiency. History: Coronary artery disease. Rheumatic Fever. Chronic obstructive pulmonary disease. Risk factors: Former tobacco use. Hypertension. Hyperlipidemia. Labs, prior tests, procedures, and surgery: Valve surgery (2005). Aortic valve replacement with a 23 mmBiocor porcine valve. Conclusions Summary: - Left ventricle: Systolic function is normal. The estimated ejection fraction is 60-65%, by visual assessment. Wall motion is normal; there are no regional wall motion abnormalities. - Left atrium: The atrium is severely dilated. - Atrial septum: A PFO is not demonstrated by color Doppler. - Mitral valve: Moderate prolapse, involving the posterior leaflet. There is no evidence of stenosis. There is moderate regurgitation. - Aortic valve: There is a bioprosthetic valve. There is no This report is only to be considered final once signed by the Provider(s) as displayed in the "<Electronically Signed by >" field (s). Absence of a signature indicates the report is in a draft status and still needs to be finalized. In the event this document was created by someone other than the signing Provider, the individual initiating the document will be listed in the "Entered by:" or "Dictated by:" bai. EKG Data: 01/08/2019; Sinus rhythm with ventricular trigeminy. Telemetry; Sinus rhythm with episodes of ventricular trigeminy. No NSVT since . Assessment/Plan #1 c/o substernal chest pain with troponinemia. No recurrent c/o chest pain since presentation. LVEF preserved with normal wall motion. 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 treated medically. Last admit on 12/14/2018 she was risk stratified with lexiscan stress test that revealed reversible inferior defect that per report resolved with attenuation correction. She states that if needed she would be agreeable to [facility]. At this time due to no recurrent symptoms would recommend continuing medical therapy with ASA 81/day, Norvasc 2.5mg/day. She has multiple allergies but ultimately she should be on statin therapy. If unable to tolerate statin therapy consider Zetia given known carotid disease. She is to follow up with primary vehicle assembly inspector Dr. Jean. #2 NSVT (8 seconds) with periods of venticular trigeminy. Now on Amiodarone 100mg/day. Recommend keeping K+>4, Mag >2. #3 h/o bioprosthetic AVR in 2005. Gradients stable on ROSAMARIA 01/11/2019. On ASA therapy. #4 h/o moderate MR s/p ROSAMARIA 01/11/2019. #5 h/o moderate bilateral ICA. Recent duplex from 08/2018. Peak XOCHILT 181, peak LICA 194. Follows Dr. Green. on ASA. Consider adding Zetia. #6 Disposition pending course, will sign off case. Discussed plan of care with Dr. Rivas who agrees with above assessment and plan. Attending: Rah Rivas
[2019-01-12 15:41] VITALS: BP 133/49
[2019-01-12] MEDS ORDERED: Ezetimibe TAB* 10 MG PO SCH (17:00)
--- NOTE | 2019-01-12 20:20 | DS ---
CC: Dr. Pilo Jean; Dr. Arzola * DISCHARGE SUMMARY: DATE OF ADMISSION: 01/08/19 DATE OF DISCHARGE: 01/12/19 PRIMARY DIAGNOSIS: Coronary artery disease with chest pain, likely angina. SECONDARY DIAGNOSES: 1. Nonsustained ventricular tachycardia. 2. Moderate mitral regurgitation, on transesophageal echocardiogram. 3. Aortic valve replacement, 2016 with stenosis. 4. Bilateral carotid artery disease. 5. Hyperlipidemia. 6. Hypertension. 7. History of diverticulitis. 8. Asthma. 9. Peripheral vascular disease. 10. History of right hemicolectomy due to colon adenocarcinoma. MEDICATIONS ON DISCHARGE: 1. Aspirin 81 mg p.o. daily. 2. Calcium carbonate 1000 mg p.o. b.i.d. 3. Cholecalciferol 2000 units p.o. daily. 4. Vitamin B12 1000 units p.o. daily. 5. Gabapentin 100 mg p.o. q.h.s. 6. Multivitamin 1 tab p.o. daily. 7. Amiodarone 100 mg p.o. daily. 8. Norvasc 2.5 mg p.o. daily. 9. Potassium chloride 20 mEq p.o. daily. HOSPITAL COURSE: An 88-year-old woman with known coronary artery disease, medically managed, as well as multiple valve disorders, presented with epigastric or subxiphoid chest pain. Please see the history and physical for full details of this complex medical admission. The patient's initial troponin was 0.03 and 0.04 on serial testing. It remained at 0.04 throughout the hospital stay. Her EKGs did not show any deviation from her baseline. Her EKG shows normal sinus rhythm, normal axis, T-wave flattening throughout the precordial leads, and ventricular bigeminy. The patient had a transthoracic echocardiogram on 01/08/19, which showed [id number] mitral regurgitation with a concern of worsening of the mitral disease. The aortic valve was bioprosthetic without regurgitation, functioning normally. The patient did have consultation with Dr. Nevarez on 01/09/19. Dr. Nevarez arranged a transesophageal echo, which demonstrated that the mitral valve is moderately not severely regurgitating. Dr. Nevarez and Dr. Rivas saw the patient and it was decided that the patient can have an outpatient cardiac catheterization as her chest pain has resolved and her troponinemia was very minimal. This cardiac catheterization is planned with Dr. Jean in the near future. OTHER PERTINENT PROCEDURES IN THE HOSPITAL: The patient had a gallbladder ultrasound on admission that showed no gallstones. Other laboratory testing in the hospital, she has neutropenia with a white count of 3.0. She has been down in the 3 range many times in the past. Other lab tests during the hospital stay were essentially normal. TSH was 0.77. DISPOSITION: To home. ACTIVITY: As tolerated. DIET: Diet will be low fat, low salt. FOLLOWUP: With primary care within [address] Jean planned to see within a month. STATUS: Inpatient. CONDITION: Stable. TIME SPENT: I spent 40 minutes with the patient and a resident physician in completing necessary discharge plans on the day of discharge. [id number]/[facility] #: [id number] [facility]TD[facility]uke
== END 2019-01-12 18:41 | disposition home or self-care (01) | DRG 303 ==
LOC: ED 08:10 → MEDTELE 12:43 → OBSVTOIN 12:48 → INTOOBSV 01-09 12:48
PROVIDERS: ADMIT Internal Medicine; ATTEND Internal Medicine
PROC: B24BZZ4 Ultrasonography of Heart with Aorta, Transesophageal (ICD-10-PCS; principal; 2019-01-11 10:15)
DX: I25.119 Atherosclerotic heart disease of native coronary artery with unspecified angina pectoris (principal); I47.2 Ventricular tachycardia; N39.0 Urinary tract infection, site not specified; I34.0 Nonrheumatic mitral (valve) insufficiency; I49.3 Ventricular premature depolarization; R00.8 Other abnormalities of heart beat; K64.9 Unspecified hemorrhoids; I10 Essential (primary) hypertension; I73.9 Peripheral vascular disease, unspecified; J45.909 Unspecified asthma, uncomplicated; I34.1 Nonrheumatic mitral (valve) prolapse; J44.9 Chronic obstructive pulmonary disease, unspecified; R79.89 Other specified abnormal findings of blood chemistry; E78.5 Hyperlipidemia, unspecified; D70.9 Neutropenia, unspecified; G62.9 Polyneuropathy, unspecified; M79.7 Fibromyalgia; Z90.49 Acquired absence of other specified parts of digestive tract; Z85.038 Personal history of other malignant neoplasm of large intestine; Z95.2 Presence of prosthetic heart valve; Z88.8 Allergy status to other drugs, medicaments and biological substances; Z82.49 Family history of ischemic heart disease and other diseases of the circulatory system; Z83.3 Family history of diabetes mellitus; Z80.7 Family history of other malignant neoplasms of lymphoid, hematopoietic and related tissues; Z82.3 Family history of stroke; Z82.5 Family history of asthma and other chronic lower respiratory diseases; Z87.891 Personal history of nicotine dependence; Z98.41 Cataract extraction status, right eye; Z95.820 Peripheral vascular angioplasty status with implants and grafts; Z85.828 Personal history of other malignant neoplasm of skin; Z79.82 Long term (current) use of aspirin
CPT/HCPCS: 36415; 76705; 80048; 80053; 80061; 81003; 81015; 83735; 84443; 84484; 85025; 85610; 87086; 93005; 93306; 93312; 93325; 99156; 99157; 99285; A9270-GY; J1644; J2250; J2270; J2310; J3010; J3475

== ENCOUNTER → 2019-01-20 | Day surgery (SDC) | payer MEDICARE ==
[~2019-01-20] MED LIST: Heparin 2 UNITS/ML IVPREMIX* 4,000 UNIT/2,000 ML BAG IV ONE; Heparin(*) 1000 UNIT/ML 10 ML VIAL CATH LAB IV ONE; Iodixanol 320 (CONTRAST) 100 ML SDV ONE; Iohexol 350 (CONTRAST) 200 ML MDV IV ONE; Lidocaine 1% INJ* 10 MG/ML 30 ML SDV ONE; Midazolam* 1 MG/ML 5 ML VIAL (5 MG) ONE; Ticagrelor* 90 MG TAB PO SCH; ceFAZolin 1 GM* X ONE DOSE (AddVan) IVPB; fentaNYL* 50 MCG/ML 2 ML VIAL (100 MCG VIAL) ONE; nitroGLYCERIN DRIP* 25,000 MCG/250 ML BTL ONE
[2019-01-20 19:26] VITALS: BP 154/71
--- NOTE | 2019-01-20 19:53 | PN ---
Progress Note - Progress Note Date of Service: 01/20/19 SOAP: Subjective: No pain complaints in the right leg. No pain at left groin. Denies CP, SOB or LUCAS. Denies numbness or subjective weakness in any extremity. Objective: Selected Entries 01/20/19 01/20/19 18:30 19:01 Heart Rate 90 Respiratory 25 Rate Blood Pressure 154/71 (mmHg) Blood Pressure 109 Mean O2 Sat by Pulse 96 Oximetry NAD, AAO x 3 Left groin is soft, minimally tender. Dressing is CDI. 2+ B/L PERFUMER pulses 1+ right popliteal and right [employer] ENGINEER Faint, but palpable right DPA Motor function in LE is grossly intact. Sensation intact to light touch in BLE. Right foot is warm to touch and non-cyanotic in appearance. Assessment: 88 YOF s/p pelvic and RLE arteriography, stenting of REIA focal occlusion and balloon angioplasty from RIGHT superior popliteal artery, through the RIGHT SFA and into right PERFUMER. Percutaneous closure achieved with Mynx closure device and superficial "figure of 8" non-absorable suture. Plan: 1. Brilinta 90 mg PO BID x 6 months. 2. Continue ASA 81 mg PO daily. 3. D/C to home. 4. IR clinic nurse will call , 01/21/19 to check up. 5. Patient must have left groin superficial suture removed in 5-7 days. If necessary she must return to imaging department for suture removal. 6. Routine 1 month EMERALD and Interventional Radiology clinic follow up with Dr. Green.
== END | disposition home or self-care (01) ==
LOC: CHICATH 11:52
PROVIDERS: ATTEND Radiology Diagnostic Radiology
DX: I70.223 Atherosclerosis of native arteries of extremities with rest pain, bilateral legs (principal); I05.9 Rheumatic mitral valve disease, unspecified; R06.00 Dyspnea, unspecified; R42 Dizziness and giddiness; J45.909 Unspecified asthma, uncomplicated; K21.9 Gastro-esophageal reflux disease without esophagitis; R07.9 Chest pain, unspecified; Z95.2 Presence of prosthetic heart valve; Z85.038 Personal history of other malignant neoplasm of large intestine; Z87.891 Personal history of nicotine dependence
CPT/HCPCS: 75736; 76937; 85347; 99156; 99157; A9270-GY; C1725; C1760; C1769; C1874; C1887; C1894; J0690; J1644; J2250; J3010

== ENCOUNTER 2019-03-24 20:44 | Inpatient (IN) | payer MEDICARE ==
--- OUTSIDE RECORDS SUMMARY | 2019-03-24 21:39 | XMS REPORT | Continuity of Care Document ---
:1930 External Reference #:[id number] Author Name Stas Green M.D. (transmitted by agent of provider Shonna Almanzart) Address [address] [address] Care Team Providers Name Role Phone La Arzola MD - Family Care Team Information Regional Guide Medicine Problems Active Problems Provider Date Chest pain Pilo Jean M.D., [facility], Onset: 03/08/2013 [facility] Aortic valve disorder Pilo Jean M.D., [facility], Onset: 06/14/2013 [facility] Dyspnea Nancy Reeves MD Onset: 09/29/2015 Gastroesophageal reflux disease Nancy Reeves MD Onset: 09/29/2015 Allergic rhinitis Nancy Reeves MD Onset: 09/29/2015 Asthma without status asthmaticus Nancy Reeves MD Onset: 11/02/2015 Dizziness Linette Rich M.D. Onset: 07/02/2016 Mitral valve disorder Pilo Jean M.D., [facility], Onset: 04/29/2017 [facility] Atherosclerosis of arteries of the Stas Green M.D. Onset: 10/14/2018 extremities Intermittent claudication due to Pilo Jean M.D., [facility], Onset: 2018 atherosclerosis of [place] artery of [facility] limb Social History Type Date Description Comments Sex Unknown ETOH Use Denies alcohol use Recreational Drug Use Never Used Drugs Tobacco Use Start: Unknown End: Patient is a former social smoker, quit Unknown smoker in Smoking Status Reviewed: 01/27/19 Patient is a former social smoker, quit smoker in Exercise Type/Frequency Exercises sporadically keep busy around house and waking when then weather permits Allergies, Adverse Reactions, Alerts Active Allergies Reaction Severity Comments Date Aspartame 03/04/2013 Lipitor 03/04/2013 Zocor 03/04/2013 Statins 03/08/2013 Lescol 03/08/2013 Zetia 03/08/2013 Niaspan 03/08/2013 Crestor 03/08/2013 Pentoxifylline 03/08/2013 Metoprolol 03/08/2013 Plavix 03/08/2013 ALL Artificial Sweeteners 03/08/2013 [employer]s Eye Vitamins 06/14/2013 Atenolol bradycardia 12/21/2018 Medications Active Medications SIG Qnty Indications Ordering Provider Date Norvasc 1 tablet by mouth 90tabs Pilo Jean, 01/26/2019 2.5mg Tablets per everyday M.Ana Maria, KAILASH BAUMAN Brilinta 1 tab by mouth 180tabs Stas Green, 01/20/2019 90mg Tablets twice a day Potassium Chloride 1 by mouth every Unknown 01/12/2019 ER day 20Meq Tablets ER Gabapentin 2 by mouth at Unknown 09/28/2015 100mg bed time Capsules Aspirin 1 po qd Unknown 81mg Tablet Vitamin B12 1 by mouth every Unknown 1000mcg day Tablets ER Centrum Silver once daily Unknown 50+Women 50+Women Tablets Amiodarone HCL 1 by mouth every 90tabs Pilo Jean, 100mg day M.DMERNA Neal FASNC Tablets Vitamin D3 1 by mouth every 30caps Unknown 2000Unit day Capsules History Medications Norvasc 1 by mouth every 90tabs Pilo Jean, 01/12/2019 - 2.5mg Tablets day MERNA HUGHES FASNC 01/26/2019 Ezetimibe 1 by mouth every 30tabs Unknown 01/12/2019 - 10mg Tablets day 01/26/2019 D3 Dots take two 90tabs Pilo Jean, 12/21/2018 - 2000Unit capsule/tablet MERNA Mcintyre FASNC 12/20/2018 Tablets Dispers daily by mouth Medications Administered in Office Medication SIG Qnty Indications Ordering Provider Date Depomedrol 40MG Katia Jenkins M.D. 11/06/2017 Injection Depomedrol 40MG NIKKIE Raymond 12/11/2016 Injection Depomedrol 40MG Katia Jenkins M.D. 03/20/2016 Injection Inj, Regadenoson, 0.1 MG Pilo Jean M.D., 04/10/2015 Injection FACC, FASNC Aminophylline Pilo Jean M.D., 04/10/2015 Injection FACC, FASNC Technetium TC 99M Pilo Jean M.D., 04/10/2015 Tetrofosmin, Per Unit Dose Up FACC, FASNC To 40 Millicuries Injection Immunizations Description No Information Available Vital Signs Date Vital Result Comment 01/27/2019 8:23am Height 66 inches 5'6" Weight 115.12 lb with shoes BP Systolic Sitting 122 mmHg BP Diastolic Sitting 70 mmHg BMI (Body Mass Index) 18.6 kg/m2 01/26/2019 2:51pm Height 66 inches 5'6" Weight 115.00 lb with shoes BP Systolic Sitting 120 mmHg Lue reg cuff BP Diastolic Sitting 80 mmHg Lue reg cuff BP Systolic Standing 148 mmHg Lue reg cuff BP Diastolic Standing 72 mmHg Lue reg cuff BMI (Body Mass Index) 18.6 kg/m2 Ejection Fraction 60-65% date 01/08/19 ECHO Results Test Date Facility Test Result H/L Range Note Laboratory test 01/20/2019 [facility] Poc Activated 191 seconds [address] [place] [address] [phone] Laboratory test 01/20/2019 [facility] Poc Activated 163 seconds [address] [place] [address] [phone] Order 12/11/2018 [facility] In-House Echocardiogram <pending> 1 Aquatics Coordinator: [id number] Reference Range: 74-125 seconds 2 Aquatics Coordinator: [id number] Reference Range: 74-125 seconds Procedures Date Code Description Status 01/26/2019 51104 EKG Tracing & Interpretation Completed 01/20/2019 42653 Moderate Sedation Services; Same Phys Each Additional 15 Completed Mins 01/20/2019 20543 Moderate Sedation Services; Same Phys Intl 15 Mins; PT >= Completed 5 Years 01/20/2019 45547 Angio Extremity, Bilateral Completed 01/20/2019 06486 Revascularization,Endovascular W/Transluminal Stent Completed Placement 01/20/2019 44507 Common Femoral, Bilat Completed 01/11/2019 82169 Moderate Sedation Services; Same Phys Intl 15 Mins; PT >= Completed 5 Years 01/11/2019 69204 Color Flow Doppler/Interp & Reprt Completed 01/11/2019 86473 Pulse Wave/Continuous-Interp.RPT Completed 01/11/2019 52529 Echocardiography, Transesophageal, Real Time W/Image 2D Completed W/W/O M-M 01/08/2019 99676 ECHO Transthorasic Realtime 2D W Doppler & Color Flow Hosp Completed 12/21/2018 54577 EKG Tracing & Interpretation Completed 12/14/2018 18337 Treadmill Interp/Report Only Completed 12/14/2018 98425 Stress Test Supervsn W/Out I/R Completed 12/11/2018 93162 ECHO Transthorasic Realtime 2D W Doppler & Color Flow Hosp Completed 12/11/2018 64261 ECHO Transthoracic, Real-Time 2D With Doppler And Color Completed Flow Medical Devices Description No Information Available Encounters Type Date Location Provider Dx Diagnosis Office Visit 01/26/2019 [facility] Pilo Hopper I34.0 Nonrheumatic mitral 2:45p Of Lauren Jean M.D., (valve) FACC, FASNC insufficiency I25.10 [facility] heart disease of [place] coronary artery w/o ang pctrs I10 Essential (primary) hypertension Office Visit 01/13/2019 11:00a [facility] Stas GVal I70.223 Ath[place]cl [place] Medicine Of Lauren Green M.D. arteries of extrm w rest pain, bilateral legs Office Visit 01/12/2019 12:28p [facility] Theresa R07.9 Chest pain, Of Wellness Assistant Thmark, LAND APPRAISER unspecified R79.89 Other specified abnormal findings of blood chemistry I47.2 Ventricular tachycardia Z95.2 Presence of prosthetic heart valve I34.0 Nonrheumatic mitral (valve) insufficiency Office Visit 01/12/2019 9:31a [facility] Pablo Rodgers I25.10 Athscl heart Assoc,gildardo Godwin M.D.,FACP disease of Hospitalists [place] coronary artery w/o ang pctrs R07.9 Chest pain, unspecified I47.2 Ventricular tachycardia I34.0 Nonrheumatic mitral (valve) insufficiency I65.29 Occlusion and stenosis of unspecified carotid artery E78.5 Hyperlipidemia, unspecified I10 Essential (primary) hypertension J45.909 Unspecified asthma, uncomplicated I73.9 Peripheral vascular disease, unspecified Z87.19 Personal history of other diseases of the digestive system Office Visit 01/11/2019 9:42a [facility] Veronica Haile, I34.0 Nonrheumatic mitral Assocgildardo MD (valve) Hospitalists insufficiency I47.2 Ventricular tachycardia N39.0 Urinary tract infection, site not specified Office Visit 01/10/2019 9:41a [facility] Mj Patton, I34.0 Nonrheumatic mitral Assocgildardo MD (valve) Hospitalists insufficiency I47.2 Ventricular tachycardia N39.0 Urinary tract infection, site not specified Office Visit 01/09/2019 9:32a [facility] Mj Patton, I34.0 Nonrheumatic mitral Assocgildardo MD (valve) Hospitalists insufficiency I47.2 Ventricular tachycardia N39.0 Urinary tract infection, site not specified Office Visit 01/08/2019 9:41a [facility] R07.9 Chest pain, Assoc,gildardo Mitlon, L[place] APPRAISER unspecified Hospitalists I35.0 Nonrheumatic aortic (valve) stenosis I10 Essential (primary) hypertension I25.10 Athscl heart disease of [place] coronary artery w/o ang pctrs J45.909 Unspecified asthma, uncomplicated I73.9 Peripheral vascular disease, unspecified Z95.4 Presence of other heart-valve replacement Office Visit 12/21/2018 1:45p [facility] Pilo Ward I34.0 Nonrheumatic mitral Of Lauren Jean M.D., (valve) FACC, FASNC insufficiency I70.213 Ath[place]cl [place] arteries of extrm w intrmt monserrat, bi legs R00.1 Bradycardia, unspecified R94.31 Abnormal electrocardiogram [ECG] [EKG] Office Visit 12/14/2018 9:20a [facility] Evy Dill, R06.02 Shortness of Assgildardo hernandes MD breath Hospitalists R00.1 Bradycardia, unspecified I35.0 Nonrheumatic aortic (valve) stenosis Z95.2 Presence of prosthetic heart valve I47.2 Ventricular tachycardia I10 Essential (primary) hypertension I25.10 Athscl heart disease of [place] coronary artery w/o ang pctrs J45.909 Unspecified asthma, uncomplicated I73.9 Peripheral vascular disease, unspecified Office Visit 12/13/2018 [facility] Minnie I49.3 Ventricular 9:19a Assoc,gildardo Young MD premature Hospitalists depolarization I10 Essential (primary) hypertension I70.213 Athscl [place] arteries of extrm w intrmt monserrat, bi legs Office Visit 12/13/2018 2:54p [facility] Jason Saeed I34.0 Nonrheumatic mitral Cardiology Miguelina Nevarez (valve) insufficiency Z95.2 Presence of prosthetic heart valve I49.3 Ventricular premature depolarization Office Visit 12/12/2018 2:53p [facility] Jason Saeed R00.1 BradycardiaRoque M.D. unspecified I34.0 Nonrheumatic mitral (valve) insufficiency Z95.2 Presence of prosthetic heart valve Office Visit 12/11/2018 [facility] R00.1 Bradycardia, 9:18a Assoc,gildardo Milton NP unspecified Hospitalists I35.0 Nonrheumatic aortic (valve) stenosis I47.2 Ventricular tachycardia I10 Essential (primary) hypertension K57.00 Dvtrcli of sm int w perforation and abscess w/o bleeding I25.10 Athscl heart disease of [place] coronary artery w/o ang pctrs J45.909 Unspecified asthma, uncomplicated I73.9 Peripheral vascular disease, unspecified Z95.5 Presence of coronary angioplasty implant and graft Office Visit 12/11/2018 9:20a [facility] Jason Saeed R06.00 DyspneaRoque M.D. unspecified I49.3 Ventricular premature depolarization I25.10 Athscl heart disease of [place] coronary artery w/o ang pctrs Z95.2 Presence of prosthetic heart valve R06.02 Shortness of breath Office Visit 11/05/2018 11:20a [facility] Keshav Live, I87.2 Venous MD insufficiency (chronic) (peripheral) L81.8 Other specified disorders of pigmentation Office Visit 10/14/2018 11:30a [facility] Stas Alcantar I70.223 Athscl [place] Medicine Of Lauren Green M.D. arteries of extrm w rest pain, bilateral legs Assessments Date Code Description Provider 01/26/2019 I34.0 Nonrheumatic mitral (valve) Pilo Jean M.D., insufficiency FAC, FASAZ 01/26/2019 I25.10 Atherosclerotic heart disease of Pilo Jean M.D., [place] coronary artery without angina FACC, FASNC pectoris 01/26/2019 I10 Essential (primary) hypertension Pilo Jean M.D., FACC, FASAZ 01/20/2019 I73.9 Peripheral vascular disease, Stas Green M.D. unspecified 01/13/2019 I70.223 Atherosclerosis of [place] arteries of Stas Green M.D. extremities with rest pain, bilateral legs 01/12/2019 I25.10 Atherosclerotic heart disease of Pablo Godwin M.D., FACP [place] coronary artery without angina pectoris 01/12/2019 R07.9 Chest pain, unspecified Theersa Craig, LAND APPRAISER 01/12/2019 R07.9 Chest pain, unspecified Pablo Godwin M.D.,FACP 01/12/2019 R79.89 Other specified abnormal findings of Theresa Craig NP blood chemistry 01/12/2019 I47.2 Ventricular tachycardia Pablo Godwin M.D.,FACP 01/12/2019 I47.2 Ventricular tachycardia Theresa Craig NP 01/12/2019 I34.0 Nonrheumatic mitral (valve) Pablo Godwin M.D.,FACP insufficiency 01/12/2019 Z95.2 Presence of prosthetic heart valve Theresa Craig, LAND APPRAISER 01/12/2019 I65.29 Occlusion and stenosis of unspecified Pablo Godwin M.D.,[facility] carotid artery 01/12/2019 I34.0 Nonrheumatic mitral (valve) Theresa Craig NP insufficiency 01/12/2019 E78.5 Hyperlipidemia, unspecified Pablo Godwin M.D.,FACP 01/12/2019 I10 Essential (primary) hypertension Pablo Godwin M.D.,FACP 01/12/2019 J45.909 Unspecified asthma, uncomplicated Pablo Godwin M.D. ,FACP 01/12/2019 I73.9 Peripheral vascular disease, Pablo Godwin M.D.,[facility] unspecified 01/12/2019 Z87.19 Personal history of other diseases of Pablo Godwin M.D.,FACP the digestive system 01/11/2019 I34.0 Nonrheumatic mitral (valve) Veronica Be MD insufficiency 01/11/2019 I34.0 Nonrheumatic mitral (valve) Rah Rivas M.D. insufficiency 01/11/2019 I47.2 Ventricular tachycardia Veronica Be MD 01/11/2019 N39.0 Urinary tract infection, site not Veronica Be MD specified 01/10/2019 I34.0 Nonrheumatic mitral (valve) Mj Patton MD insufficiency 01/10/2019 I47.2 Ventricular tachycardia Mj Patton MD 01/10/2019 N39.0 Urinary tract infection, site not Mj Patton MD specified 01/09/2019 I34.0 Nonrheumatic mitral (valve) Mj Patton MD insufficiency 01/09/2019 I47.2 Ventricular tachycardia Mj Patton MD 01/09/2019 N39.0 Urinary tract infection, site not Mj Patton MD specified 01/08/2019 R07.9 Chest pain, unspecified [facility] Short, L[place] APPRAISER 01/08/2019 I35.0 Nonrheumatic aortic (valve) stenosis [facility], [place] APPRAISER 01/08/2019 I10 Essential (primary) hypertension [facility], L[place] APPRAISER 01/08/2019 I25.10 Atherosclerotic heart disease of [facility] [place] coronary artery without angina pectoris 01/08/2019 J45.909 Unspecified asthma, uncomplicated [facility] Shortle, LAND APPRAISER 01/08/2019 I73.9 Peripheral vascular disease, [facility], L[place] APPRAISER unspecified 01/08/2019 Z95.4 Presence of other heart-valve [facility] Shortle, [place] APPRAISER replacement 12/21/2018 I34.0 Nonrheumatic mitral (valve) Pilo Jean M.D., insufficiency FACC, FASNC 12/21/2018 I70.213 Atherosclerosis of [place] arteries of Pilo Jean M.D., extremities with intermittent FACC, FASNC claudication, bilateral legs 12/21/2018 R00.1 Bradycardia, unspecified Pilo Jean M.D., [facility], [facility] 12/21/2018 R94.31 Abnormal electrocardiogram [ECG] [EKG] Pilo Jean M.D., [facility], [facility] 12/14/2018 R06.02 Shortness of breath Evy Carranza MD 12/14/2018 R06.02 Shortness of breath Stevie Penaloza M.D., [facility] 12/14/2018 R00.1 Bradycardia, unspecified Evy Carranza MD 12/14/2018 I35.0 Nonrheumatic aortic (valve) stenosis Evy Carranza MD 12/14/2018 Z95.2 Presence of prosthetic heart valve Evy Carranza MD 12/14/2018 I47.2 Ventricular tachycardia Evy Carranza MD 12/14/2018 I10 Essential (primary) hypertension Evy Carranza MD 12/14/2018 I25.10 Atherosclerotic heart disease of Evy Carranza MD [place] coronary artery without angina pectoris 12/14/2018 J45.909 Unspecified asthma, uncomplicated Evy Carranza MD 12/14/2018 I73.9 Peripheral vascular disease, Evy Carranza MD unspecified 12/13/2018 I49.3 Ventricular premature depolarization Minnie Young MD 12/13/2018 I34.0 Nonrheumatic mitral (valve) Jason Nevarez M.D. insufficiency 12/13/2018 I10 Essential (primary) hypertension Minnie Young MD 12/13/2018 Z95.2 Presence of prosthetic heart valve Jason Nevarez M.D. 12/13/2018 I70.213 Atherosclerosis of [place] arteries of Minnie Young MD extremities with intermittent claudication, bilateral legs 12/13/2018 I49.3 Ventricular premature depolarization Jason Nevarez M.D. 12/12/2018 R00.1 Bradycardia, unspecified Minnie Young MD 12/12/2018 R00.1 Bradycardia, unspecified Jason Nevarez M.D. 12/12/2018 I10 Essential (primary) hypertension Minnie Young MD 12/12/2018 I34.0 Nonrheumatic mitral (valve) Jason Nevarez M.D. insufficiency 12/12/2018 I70.213 Atherosclerosis of [place] arteries of Minnie Young MD extremities with intermittent claudication, bilateral legs 12/12/2018 Z95.2 Presence of prosthetic heart valve Jason Nevarez M.D. 12/11/2018 R00.1 Bradycardia, unspecified Jenn Shortle, LAND APPRAISER 12/11/2018 R06.00 Dyspnea, unspecified Jason Nevarez M.D. 12/11/2018 I35.0 Nonrheumatic aortic (valve) stenosis Jenn Karine, LAND APPRAISER 12/11/2018 J45.909 Unspecified asthma, uncomplicated Nancy Reeves MD 12/11/2018 I47.2 Ventricular tachycardia Jenn Blairrell, LAND APPRAISER 12/11/2018 I49.3 Ventricular premature depolarization Jason Nevarez M.D. 12/11/2018 I10 Essential (primary) hypertension Jenn Karine, LAND APPRAISER 12/11/2018 I25.10 Atherosclerotic heart disease of Jason Nevarez M.D. [place] coronary artery without angina pectoris 12/11/2018 K57.00 Diverticulitis of small intestine with Jenn Milton LAND APPRAISER perforation and abscess without bleeding 12/11/2018 R00.1 Bradycardia, unspecified Nancy Reeves MD 12/11/2018 I25.10 Atherosclerotic heart disease of Jenn Milton, L[place] APPRAISER [place] coronary artery without angina pectoris 12/11/2018 Z95.2 Presence of prosthetic heart valve Jason Nevarez M.D. 12/11/2018 J45.909 Unspecified asthma, uncomplicated Jenn Milton, LAND APPRAISER 12/11/2018 R06.02 Shortness of breath Jason Nevarez M.D. 12/11/2018 I73.9 Peripheral vascular disease, Jenn Milton, LAND APPRAISER unspecified 12/11/2018 I34.0 Nonrheumatic mitral (valve) Nancy Reeves MD insufficiency 12/11/2018 Z95.5 Presence of coronary angioplasty Jenn Blairrell LAND APPRAISER implant and graft 11/05/2018 I87.2 Venous insufficiency (chronic) Keshav Live MD (peripheral) 11/05/2018 L81.8 Other specified disorders of Keshav Live MD pigmentation 10/14/2018 I70.223 Atherosclerosis of [place] arteries of Stas Green M.D. extremities with rest Plan of Treatment Future Appointment(s):04/27/2019 1:45 pm - Pilo Jean M.D., FACC, FASAZ at [facility]12/20/2019 11:30 am - Nancy Reeves MD at [facility] Functional Status Description No Information Available Mental Status Description No Information Available Referrals Description No Information Available
[2019-03-24 21:54] LABS: ABS Lymphocytes 0.7 10^3/ul (1.0-4.8); ABS Monocytes 0.4 10^3/ul (0-0.8); ABS Neutrophils 4.3 10^3/ul (1.5-7.7); Eosinophil % 0.3 %; Hematocrit 42 % (35-47); Hemoglobin 14.3 g/dL (12.0-16.0); Lymphocyte % 12.8 %; Mean Corpuscular HGB Conc 34 g/dL (31-36); Mean Corpuscular Hemoglobin 34 pg (27-31); Mean Corpuscular Volume 102 fL (80-97); Platelet Count 145 10^3/uL (150-450); Red Blood Count 4.16 10^6 /uL (3.70-4.87); Red Cell Distribution Width 14 % (10-15); White Blood Count 5.4 10^3/uL (3.5-10.8)
[2019-03-24 22:12] LABS: ALT 22 U/L (7-52); AST 28 U/L (13-39); Albumin 3.8 g/dL (3.2-5.2); Albumin/Globulin Ratio 1.5 (1-3); Alkaline Phosphatase 62 U/L (34-104); Anion Gap 6 mmol/L (2-11); BUN/Creatinine Ratio 27.1 (8-20); Blood Urea Nitrogen 29 mg/dL (6-24); C Reactive Protein < 1.00 mg/L (<8.01); CO2 Carbon Dioxide 27 mmol/L (22-32); Chloride 105 mmol/L (101-111); Creatine Kinase 92 U/L (10-223); EGFR African American 58.7 (>60); EGFR Non-African American 48.5 (>60); Globulin 2.6 g/dL (2-4); Glucose 106 mg/dL (70-100); Phosphorus 3.8 mg/dL (2.5-5.0); Potassium 4.2 mmol/L (3.5-5.0); Sodium 138 mmol/L (135-145); Total Protein 6.4 g/dL (6.4-8.9)
[2019-03-24 22:15] LABS: Troponin I 0.04 ng/mL (<0.04)
[2019-03-24 22:31] LABS: TSH (Thyroid Stimulating Horm) 1.03 mcIU/mL (0.34-5.60)
--- NOTE | 2019-03-24 23:52 | ED ---
Adult Trauma - HPI Summary HPI Summary: Per family, patient was found at home lying on the floor today. Patient was alert and oriented with no apparent pain. Patient was on floor for unknown period of time. Last seen 5 hours prior. Patient lives alone, has history of intermittent dementia. Patient unable to provide clear specific history of present illness. Family denies slurred speech, facial droop, AMS. Patient discharged today from [facility] after admission for bilateral lower extremity weakness, failure to thrive. Family unaware of the results of evaluation during admission. Patient alert and oriented here in the ED, denies active pain. States history of intermittent pain in bilateral lower extremities that keeps her from standing or walking. Medical history is cardiac stents, heart valve replacement, HTN. On Brilinta. - History of Current Complaint Chief Complaint: EDFall Stated Complaint: FALL/UNABLE TO WALK PER GRANDSON Time Seen by Provider: 03/24/19 21:00 Hx Obtained From: Patient, Family/Consultant Dietitian Mechanism of Injury: Fall Ambulatory at the Scene: No Loss of Consciousness: unsure Current Severity: None Pain Intensity: 0 Pain Scale Used: 0-10 Numeric Aggravating Factor(s): Nothing Alleviating Factor(s): Nothing Associated Signs & Symptoms: Positive: Negative - Additional Pertinent History Primary Care Physician: [id number] - Allergy/Home Medications Allergies/Adverse Reactions: Allergies Allergy/AdvReac Type Severity Reaction Status Date / Time aspartame Allergy Unknown Verified 03/24/19 20:57 Reaction Details fluvastatin [From Lescol] Allergy Unknown Verified 03/24/19 20:57 Reaction Details metoprolol Allergy Unknown Verified 03/24/19 20:57 Reaction Details pentoxifylline Allergy Unknown Verified 03/24/19 20:57 Reaction Details rosuvastatin [From Crestor] Allergy Unknown Verified 03/24/19 20:57 Reaction Details simvastatin [From Zocor] Allergy Unknown Verified 03/24/19 20:57 Reaction Details stevioside [From Stevia] Allergy Unknown Verified 03/24/19 20:57 Reaction Details sucralose Allergy Unknown Verified 03/24/19 20:57 [From Splenda (sucralose)] Reaction Details atenolol AdvReac Unknown See Comment Verified 03/24/19 20:57 atorvastatin [From Lipitor] AdvReac Leg Cramps Verified 03/24/19 20:57 clopidogrel [From Plavix] AdvReac GI Upset Verified 03/24/19 20:57 ezetimibe [From Zetia] AdvReac Leg Cramps Verified 03/24/19 20:57 niacin AdvReac Leg Cramps Verified 03/24/19 20:57 [id number]-Rdg Reductase AdvReac Leg Cramps Verified 03/24/19 20:57 Inhibitor ARTIFICIAL SWEETENERS Allergy Unknown Uncoded 03/24/19 20:57 Reaction Details PMH/Surg Hx/FS Hx/Imm Hx Endocrine/Hematology History: Denies: Hx Diabetes, Hx Sickle Cell Disease Cardiovascular History: Reports: Hx Angina, Hx Coronary Artery Disease, Hx Hypertension, 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, Hx Valvular Heart Disease - aortic valve repair Denies: Hx Hypercholesterolemia, Hx Myocardial Infarction, Hx Pacemaker/ICD Respiratory History: Reports: Hx Asthma Denies: Hx Chronic Obstructive Pulmonary Disease (COPD), Other Respiratory Problems/Disorders GI History: Reports: Other GI Disorders - colon resection, colon CA History: Denies: Hx Kidney Stones, Other Problems/Disorders Musculoskeletal History: Denies: Hx Arthritis, Hx Rheumatoid Arthritis, Hx Osteoporosis Sensory History: Reports: Hx Cataracts, Hx Contacts or Glasses, Other Sensory Impairments - vertigo Denies: Hx Hearing Aid Opthamlomology History: Reports: Hx Cataracts, Hx Contacts or Glasses, Other Sensory Impairments - vertigo EENT History: Denies: Hx Deafness Neurological History: Reports: Other Neuro Impairments/Disorders - neuropathy, vertigo Psychiatric History: Denies: Hx Panic Disorder - Cancer History Cancer Type, Location and Year: Colon Cancer, SKIN Hx Chemotherapy: Yes - COLON CANCER, 70'S Hx Radiation Therapy: Yes - Surgical History Surgery Procedure, Year, and Place: COLON RESECTION. AORTIC VALVE REPLACED 05/24- [facility]- [address] [facility] [employer] PORCINE VALVE: [id number], CONDITIONAL FOR 1.5T TO 3.0 T MRI MAX SPATIAL GRADIENT LESS THAN OR EQUAL TO 3000 GAUSS/cm ( INFORMATION SCANNED INTO 'S EMR). ANGIOPLASTY. HERNIA REPAIR Xs 2 -1998 & 2013. CATARACT. STENTS IN LEGS TO OPEN UP BLOODFLOW. CYSTS REMOVED FROM VARIOUS PARTS OF BODY Hx Anesthesia Reactions: No Infectious Disease History: No Infectious Disease History: Denies: Traveled Outside the [place] in Last 30 Days - Family History Known Family History: Positive: Cardiac Disease, Hypertension - Social History Alcohol Use: Rare Hx Substance Use: No Substance Use Type: Reports: None Hx Tobacco Use: No Smoking Status (MU): Former Smoker Type: Cigarettes Amount Used/How Often: occasionally from age [age]. Review of Systems Constitutional: Negative Eyes: Negative ENT: Negative Cardiovascular: Negative Respiratory: Negative Gastrointestinal: Negative Genitourinary: Negative Musculoskeletal: Negative Skin: Negative Neurological: Negative Psychological: Normal All Other Systems Reviewed And Are Negative: Yes Physical Exam - Summary Physical Exam Summary: Neuro exam normal. Patient unable to ambulate. Normally ambulates by holding onto things. Triage Information Reviewed: Yes Vital Signs On Initial Exam: Initial Vitals Temp Pulse Resp BP Pulse Ox 98.9 F 64 15 136/80 98 03/24/19 20:49 03/24/19 20:49 03/24/19 20:49 03/24/19 20:49 03/24/19 20:49 Vital Signs Reviewed: Yes Appearance: Positive: Well-Appearing Skin: Positive: Warm Head/Face: Positive: Normal Head/Face Inspection Eyes: Positive: Normal ENT: Positive: Normal ENT inspection Dental: Negative: Dental Fracture @, Bleeding Neck: Positive: Supple Respiratory/Lung Sounds: Positive: Clear to Auscultation Cardiovascular: Positive: Normal Abdomen Description: Positive: Nontender Musculoskeletal: Positive: Normal Neurological: Positive: Normal Psychiatric: Positive: Normal AVPU Assessment: Alert - Leonard Coma Scale Best Eye Response: 4 - Spontaneous Best Motor Response: 6 - Obeys Commands Best Verbal Response: 5 - Oriented Coma Scale Total: 15 Procedures - Sedation Patient Received Moderate/Deep Sedation with Procedure: No Diagnostics - Vital Signs Vital Signs Temp Pulse Resp BP Pulse Ox 03/24/19 23:06 60 21 148/72 95 03/24/19 23:00 55 21 97 03/24/19 22:35 21 147/64 03/24/19 22:05 19 136/65 03/24/19 22:01 19 03/24/19 21:35 26 156/80 03/24/19 21:07 62 97 03/24/19 21:05 62 157/83 95 03/24/19 20:49 98.9 F 64 15 136/80 98 - Laboratory Lab Results: Lab Results 03/24/19 03/24/19 Range/Units 21:47 21:47 WBC 5.4 (3.5-10.8) 10^3/uL RBC 4.16 (3.70-4.87) 10^6 /uL Hgb 14.3 (12.0-16.0) g/dL Hct 42 (35-47) % MCV 102 H (80-97) fL MCH 34 H (27-31) pg MCHC 34 (31-36) g/dL RDW 14 (10-15) % Plt Count 145 L (150-450) 10^3/uL MPV 9.0 (7.4-10.4) fL Neut % (Auto) 79.0 % Lymph % (Auto) 12.8 % [place] % (Auto) 7.4 % Eos % (Auto) 0.3 % Baso % (Auto) 0.5 % Absolute Neuts (auto) 4.3 (1.5-7.7) 10^3/ul Absolute Lymphs (auto) 0.7 L (1.0-4.8) 10^3/ul Absolute Monos (auto) 0.4 (0-0.8) 10^3/ul Absolute Eos (auto) 0.0 (0-0.6) 10^3/ul Absolute Basos (auto) 0.0 (0-0.2) 10^3/ul Absolute Nucleated RBC 0.0 10^3/ul Nucleated RBC % 0.0 Sodium 138 (135-145) mmol/L Potassium 4.2 (3.5-5.0) mmol/L Chloride 105 (101-111) mmol/L Carbon Dioxide 27 (22-32) mmol/L Anion Gap 6 (2-11) mmol/L BUN 29 H (6-24) mg/dL Creatinine 1.07 H (0.51-0.95) mg/dL Est GFR ( Amer) 58.7 (>60) Est GFR (Non-Af Amer) 48.5 (>60) BUN/Creatinine Ratio 27.1 H (8-20) Glucose 106 H (70-100) mg/dL Calcium 10.0 (8.6-10.3) mg/dL Phosphorus 3.8 (2.5-5.0) mg/dL Magnesium 2.0 (1.9-2.7) mg/dL Total Bilirubin 0.50 (0.2-1.0) mg/dL AST 28 (13-39) U/L ALT 22 (7-52) U/L Alkaline Phosphatase 62 (34-104) U/L Total Creatine Kinase 92 (10-223) U/L Troponin I 0.04 H* (<0.04) ng/mL C-Reactive Protein < 1.00 (<8.01) mg/L Total Protein 6.4 (6.4-8.9) g/dL Albumin 3.8 (3.2-5.2) g/dL Globulin 2.6 (2-4) g/dL Albumin/Globulin Ratio 1.5 (1-3) TSH 1.03 (0.34-5.60) mcIU/mL Result Diagrams: 03/24/19 21:47 03/24/19 21:47 Lab Statement: Any lab studies that have been ordered have been reviewed, and results considered in the medical decision making process. Adult Trauma Course/Dx - Course Course Of Treatment: Per family, patient was found at home lying on the floor today. Patient was alert and oriented with no apparent pain. Patient was on floor for unknown period of time. Last seen 5 hours prior. Patient lives alone , has history of intermittent dementia. Patient unable to provide clear specific history of present illness. Family denies slurred speech, facial droop , AMS. Patient discharged today from [facility] after admission for bilateral lower extremity weakness, failure to thrive. Family unaware of the results of evaluation during admission. Patient alert and oriented here in the ED, denies active pain. States history of intermittent pain in bilateral lower extremities that keeps her from standing or walking. Medical history is cardiac stents, heart valve replacement, HTN. On Brilinta. Vital signs within normal limits. Initial troponin 0.04. History of same. Labs otherwise unremarkable. EKG sinus rhythm with PVCs (history of same), heart rate of 69, normal P axis. CT brain negative. UA positive for UTI. Admitted to hospitalist. - Diagnoses Provider Diagnoses: UTI (urinary tract infection) Discharge ED - Sign-Out/Discharge Documenting (check all that apply): Patient Departure - Discharge Plan Condition: Stable Disposition: ADMITTED TO [facility] Referrals: No Primary Care Phys,NOPCP [Primary Care Provider] - - Billing Disposition and Condition Condition: STABLE Disposition: Admitted to [facility]
[2019-03-25 01:01] LABS: Troponin I 0.04 ng/mL (<0.04)
[2019-03-25 02:12] LABS: Urine Appearance Cloudy; Urine Bacteria Absent (Absent); Urine Bilirubin Negative (Negative); Urine Blood 1+ (Negative); Urine Color Yellow; Urine Glucose Negative (Negative); Urine Ketones Negative (Negative); Urine Nitrite Negative (Negative); Urine Protein Negative (Negative); Urine Red Blood Cell 1+(3-5/hpf) (Absent); Urine Specific Gravity 1.013 (1.010-1.030); Urine Squamous Epithelial Cell Present (Absent); Urine Urobilinogen Negative (Negative); Urine White Blood Cell 2+(11-20/hpf) (Absent)
[2019-03-25] MEDS ORDERED: NS 0.9% 1000 ML** 1,000 ML IV ONE (02:38)
[2019-03-25] MEDS ORDERED: cefTRIAXone(*) 1 GM in NS 0.9% 50 ML* 50 ML IVPB ONE (02:38)
[2019-03-25] MEDS ORDERED: Haloperidol INJ IV/IM* 5 MG/ML AMP IM ONE (04:06)
[2019-03-25] MEDS ORDERED: NS 0.9% 1000 ML** 1,000 ML IV SCH (05:15)
[2019-03-25] MEDS ORDERED: Calcium Carbonate CHEW TAB* 500 MG (TUMS) PO PRN (05:34)
[2019-03-25] MEDS ORDERED: cefTRIAXone(*) 1 GM in NS 0.9% 50 ML* 50 ML IVPB SCH (06:00)
[2019-03-25 08:34] LABS: Troponin I 0.05 ng/mL (<0.04)
--- NOTE | 2019-03-25 08:59 | HP ---
ADMISSION HISTORY AND PHYSICAL: DATE OF ADMISSION: 03/25/19 CHIEF COMPLAINT: Found lying on the floor. HISTORY OF PRESENT ILLNESS: This is an 88-year-old female with past medical history of aortic stenosis, status post AVR in 2015; ventricular tachycardia; hypertension; history of diverticulitis; hemorrhoids; adenocarcinoma; coronary artery disease; asthma; peripheral vascular disease, who was brought in after she was found on the floor. Last seen normal was 5 hours ago. By the time I saw the patient, she was very delirious and was unable to give proper history. So, history was obtained by reviewing ER records, where it says that the patient was found on the floor after an unknown period of time and does have history of intermittent dementia and delirium, and she was recently admitted and discharged from [facility] for lower extremity weakness. Initially when the patient arrived to the ER, she was awake, alert, oriented to time, place and person, but according to the ER nurse the patient sun-downed before I could see her and was responding to internal stimuli and no further history can be obtained from her. PAST MEDICAL HISTORY: As mentioned, aortic stenosis, status post AVR in 2005; ventricular tachycardia; hypertension; diverticulitis; hemorrhoids; adenocarcinoma of the colon; coronary artery disease; asthma; peripheral vascular disease. PAST SURGICAL HISTORY: Colon cancer surgery, ganglion cyst removal, hernia repair, aortic valve replacement, cataract surgery, multiple skin surgeries for skin cancer, and stents x2 in her right leg. HOME MEDICATIONS: The patient is documented to be on: 1. Gabapentin 300 mg at bedtime. 2. Amlodipine 2.5 mg oral daily. 3. Brilinta 90 mg p.o. b.i.d. 4. Potassium chloride 20 mEq oral daily. 5. Multivitamins for women 1 mg p.o. daily. 6. Vitamin B12 is 1000 mcg oral daily. 7. Vitamin D 2000 units oral daily. 8. Tums 1000 mg p.o. b.i.d. p.r.n. 9. Aspirin 81 mg oral daily. 10. Amiodarone 100 mg p.o. daily. ALLERGIES: The patient is documented to be allergic to ASPARTAME, METOPROLOL, PENTOXIFYLLINE, CRESTOR, ZOCOR, STEVIA, SPLENDA, ATENOLOL, LIPITOR, PLAVIX, ZETIA, NIACIN, HMG-COA REDUCTASE; ARTIFICIAL SWEETENERS. FAMILY HISTORY: Documented family history includes father had asthma and by age 49. Mother had diabetes and congestive heart failure. Sister of stroke and another sister had blood cancer. A brother also had heart attack and another brother had an open-heart surgery along with mitral valve repair. SOCIAL HISTORY: The patient lives alone and previously reported as ambulating independently, but occasionally uses cane and continuously used to drive as of her last H and P in December 2018, but currently is delirious and the son suggested the patient needs placement as she was unable to care for herself at home. The patient does have history of smoking for roughly 20 years. Denies any alcohol use. Her sons are her surrogate decision makers based on the previous H and P and the name listed as Gustavo Rodrigues. She is otherwise full code. REVIEW OF SYSTEMS: A 14-point review of systems did not reveal any new information other than what is mentioned in the HPI. PHYSICAL EXAMINATION GENERAL: The patient is awake, alert, oriented to person only, kept replying saying that what good would it do if she answers where she was or which month it is or which year it is. She did attempt to answer these properly, but later stating that I am not sure and you trick me and saying what good would it do. Otherwise, the patient was in no acute distress. VITAL SIGNS: In the ER, BP was noted to be 144/64, heart rate 81, respiration rate 16, saturating 98% on room air, temperature was recorded at 98.9 degrees Fahrenheit. HEAD AND NECK: Atraumatic, normocephalic. Bilateral pupils are reactive. Oral mucosa was moist. NECK: Supple. No jugular venous distention. LUNGS: Clear to auscultation bilaterally. No wheezing, rhonchi, rales. HEART: S1, S2. Regular rate and rhythm. ABDOMEN: Soft, nontender, and nondistended. EXTREMITIES: No cyanosis, clubbing, or edema. DIAGNOSTIC STUDIES/LAB DATA: CBC was unremarkable except for minimally decreased platelets of 145. Comprehensive metabolic panel shows elevated BUN at 29, creatinine elevated at 1.07, random glucose elevated at 106. Troponin was noted to be 0.04 both sets. LFTs within normal limits. Urinalysis was positive for leuk esterase and 1+ blood. IMPRESSION: This is an 88-year-old female with questionable history of dementia , definitely going through some delirium at this point, likely secondary to urinary tract infection, possibly a component of acute kidney injury. ASSESSMENT: 1. Delirium secondary to urinary tract infection. We will start the patient on IV antibiotics and continue with IV hydration. 2. Acute kidney injury. We will start the patient on gentle hydration. 3. Urinary tract infection. We will start the patient on ceftriaxone IV. 4. History of hypertension, currently stable. We will monitor for now. 5. History of diverticulitis. 6. History of asthma plus chronic obstructive pulmonary disease, not in any exacerbation. 7. DVT prophylaxis with sequential compression device. 8. Code status. Full code. [id number]/[facility] #: [id number] MTDD
[2019-03-25] MEDS: Cholecalciferol TAB* 1000 UNITS PO SCH (09:54)
[2019-03-25] MEDS: Cyanocobalamin TAB* 500 MCG PO SCH (09:55)
[2019-03-25] MEDS: Amiodarone TAB* 200 MG PO SCH (09:56)
[2019-03-25] MEDS: Ticagrelor* 90 MG TAB PO SCH ×2 (09:56→21:48)
[2019-03-25] MEDS: Multivitamins/Minerals TAB PO SCH (09:57)
[2019-03-25] MEDS: Aspirin EC TAB* 81 MG TAB.EC PO SCH (09:58)
[2019-03-25] MEDS: Potassium Chlor TAB* 20 MEQ TAB.ER PO SCH (09:58)
[2019-03-25] MEDS: amLODIPine TAB* 5 MG PO SCH (10:01)
[2019-03-25 12:00] LABS: Troponin I 0.05 ng/mL (<0.04)
[2019-03-25 14:54] LABS: Troponin I 0.04 ng/mL (<0.04)
[2019-03-25 17:55] LABS: Troponin I 0.04 ng/mL (<0.04)
--- NOTE | 2019-03-25 19:19 | PN ---
Subjective Date of Service: 03/25/19 Interval History: HD 2 on 03/25 complains of bilateral leg pain. No chest pain, palpitation and dizziness Objective Active Medications: Amiodarone HCl (Cordarone Tab*) 100 mg PO DAILY [facility] Last Admin: 03/25/19 09:56 Dose: 100 mg Amlodipine Besylate (Norvasc Tab*) 2.5 mg PO DAILY [facility] Last Admin: 03/25/19 10:01 Dose: 2.5 mg Aspirin (Aspirin Ec Tab*) 81 mg PO DAILY [facility] Last Admin: 03/25/19 09:58 Dose: 81 mg Calcium Carbonate (Tums*) 1,000 mg PO BID PRN PRN Reason: INDIGESTION Cholecalciferol (Vitamin D Tab*) 2,000 units PO DAILY [facility] Last Admin: 03/25/19 09:54 Dose: 2,000 units Cyanocobalamin (Vitamin B12 Tab*) 1,000 mcg PO DAILY [facility] Last Admin: 03/25/19 09:55 Dose: 1,000 mcg Gabapentin (Neurontin Cap(*)) 300 mg PO BEDTIME [facility] Multivitamins/Minerals (Theragran/Minerals Tab*) 1 tab PO DAILY [facility] Last Admin: 03/25/19 09:57 Dose: 1 tab Potassium Chloride (Klor Con Er Tab*) 20 meq PO DAILY [facility] Last Admin: 03/25/19 09:58 Dose: 20 meq Risperidone (Risperdal) 0.25 mg PO BEDTIME [facility] Ticagrelor (Brilinta*) 90 mg PO BID [facility] Last Admin: 03/25/19 09:56 Dose: 90 mg Vital Signs - 8 hr 03/25/19 03/25/19 11:45 15:12 Temperature 97.6 F 97.8 F Pulse Rate 69 61 Respiratory 16 16 Rate Blood Pressure 149/70 166/66 (mmHg) O2 Sat by Pulse 100 99 Oximetry Oxygen Devices in Use Now: None Exam: Patient is sitting in a bed with no acute distress. HEENT: Normocephalic and Atraumatic Lungs: Clear with no added sounds Heart: S1/S2 heard with murmur Abdomen: soft, nondistended and nontender Extremities: Normal Neuro: Alert, oriented and conscious Result Diagrams: 03/24/19 21:47 03/24/19 21:47 Additional Lab and Data: Lab Results 03/24/19 03/24/19 Range/Units 21:47 21:47 WBC 5.4 (3.5-10.8) 10^3/uL RBC 4.16 (3.70-4.87) 10^6 /uL Hgb 14.3 (12.0-16.0) g/dL Hct 42 (35-47) % MCV 102 H (80-97) fL MCH 34 H (27-31) pg MCHC 34 (31-36) g/dL RDW 14 (10-15) % Plt Count 145 L (150-450) 10^3/uL MPV 9.0 (7.4-10.4) fL Neut % (Auto) 79.0 % Lymph % (Auto) 12.8 % [place] % (Auto) 7.4 % Eos % (Auto) 0.3 % Baso % (Auto) 0.5 % Absolute Neuts (auto) 4.3 (1.5-7.7) 10^3/ul Absolute Lymphs (auto) 0.7 L (1.0-4.8) 10^3/ul Absolute Monos (auto) 0.4 (0-0.8) 10^3/ul Absolute Eos (auto) 0.0 (0-0.6) 10^3/ul Absolute Basos (auto) 0.0 (0-0.2) 10^3/ul Absolute Nucleated RBC 0.0 10^3/ul Nucleated RBC % 0.0 Sodium 138 (135-145) mmol/L Potassium 4.2 (3.5-5.0) mmol/L Chloride 105 (101-111) mmol/L Carbon Dioxide 27 (22-32) mmol/L Anion Gap 6 (2-11) mmol/L BUN 29 H (6-24) mg/dL Creatinine 1.07 H (0.51-0.95) mg/dL Est GFR ( Amer) 58.7 (>60) Est GFR (Non-Af Amer) 48.5 (>60) BUN/Creatinine Ratio 27.1 H (8-20) Glucose 106 H (70-100) mg/dL Calcium 10.0 (8.6-10.3) mg/dL Phosphorus 3.8 (2.5-5.0) mg/dL Magnesium 2.0 (1.9-2.7) mg/dL Total Bilirubin 0.50 (0.2-1.0) mg/dL AST 28 (13-39) U/L ALT 22 (7-52) U/L Alkaline Phosphatase 62 (34-104) U/L Total Creatine Kinase 92 (10-223) U/L Troponin I 0.04 H* (<0.04) ng/mL C-Reactive Protein < 1.00 (<8.01) mg/L Total Protein 6.4 (6.4-8.9) g/dL Albumin 3.8 (3.2-5.2) g/dL Globulin 2.6 (2-4) g/dL Albumin/Globulin Ratio 1.5 (1-3) TSH 1.03 (0.34-5.60) mcIU/mL Assess/Plan/Problems-Billing Assessment: 88 y/o F with history of dementia presented after fall and was found lying on a floor. Haile is a poor histotrian; doesnt recall any event. Found to have abnormal urinalysis with normal CK. - Patient Problems (1) Fall Current Visit: Yes Status: Acute Comment: -She was found lying on a floor but was conscious - nOt sure if it ws due to weakness or tripping or arrhythmia;a s she was alone in home and doesnot recall -she was d/c from [facility] after she was admitted for b/l leg weakness and pain. -A/c to her grandson she was not able to go to wheelchair to car. -ck normal -mild creatinine elevation -we will monitor in tele -On discharge she will need some KAY/nusing home as she lives alone (2) Abnormal urinalysis Current Visit: Yes Status: Acute Code(s): R82.90 - UNSPECIFIED ABNORMAL FINDINGS IN URINE SNOMED Code(s): 595705599 Comment: -aymptomatic -we will wait for urine culture (3) Nonsustained ventricular tachycardia Current Visit: No Status: Acute Code(s): I47.2 - VENTRICULAR TACHYCARDIA SNOMED Code(s): 408201973 Comment: -nonsustained Asymptomatic and vitals stable -on amiodarone (4) Hypertension Current Visit: No Status: Acute Code(s): I10 - ESSENTIAL (PRIMARY) HYPERTENSION SNOMED Code(s): 43437403 Comment: -on amlodipine (5) DVT prophylaxis Current Visit: No Status: Acute Code(s): Z29.9 - ENCOUNTER FOR PROPHYLACTIC MEASURES, UNSPECIFIED SNOMED Code(s): 925247319 Comment: -SCD (6) Full code status Current Visit: No Status: Acute Code(s): Z78.9 - OTHER SPECIFIED HEALTH STATUS SNOMED Code(s): 660076596 Status and Disposition: inpatient Attending: Colt Sagastume Attestation Documenting Resident: Tyree Govea Supervising Physician: Colt Sagastume Attestation: This service has been performed in part by a resident under the direction of a teaching physician.I, Colt Sagastume, performed the service, or was physically present during the critical, or noel portions of the service, furnished by the resident. I participated in the management of the patient.
[2019-03-25] MEDS: Gabapentin CAP(*) 300 MG PO SCH (21:48)
[2019-03-26] MEDS ORDERED: Haloperidol INJ IV/IM* 5 MG/ML AMP IM PRN (00:59)
[2019-03-26 05:22] LABS: ABS Lymphocytes 0.5 10^3/ul (1.0-4.8); ABS Monocytes 0.3 10^3/ul (0-0.8); ABS Neutrophils 2.7 10^3/ul (1.5-7.7); Eosinophil % 0.6 %; Hematocrit 39 % (35-47); Lymphocyte % 13.4 %; Mean Corpuscular HGB Conc 33 g/dL (31-36); Mean Corpuscular Hemoglobin 34 pg (27-31); Mean Corpuscular Volume 103 fL (80-97); Platelet Count 132 10^3/uL (150-450); Red Blood Count 3.79 10^6 /uL (3.70-4.87); Red Cell Distribution Width 14 % (10-15); White Blood Count 3.6 10^3/uL (3.5-10.8)
[2019-03-26] MEDS ORDERED: cefTRIAXone(*) 1 GM in NS 0.9% 50 ML* 50 ML IVPB SCH (05:30)
[2019-03-26 05:38] LABS: BUN/Creatinine Ratio 28.4 (8-20); Calcium 9.5 mg/dL (8.6-10.3); EGFR African American 73.5 (>60); EGFR Non-African American 60.8 (>60); Potassium 3.9 mmol/L (3.5-5.0)
[2019-03-26] MEDS: Amiodarone TAB* 200 MG PO SCH (10:03)
[2019-03-26] MEDS: Ticagrelor* 90 MG TAB PO SCH ×2 (10:04→20:11)
[2019-03-26] MEDS: Aspirin EC TAB* 81 MG TAB.EC PO SCH (10:05)
[2019-03-26] MEDS: amLODIPine TAB* 5 MG PO SCH (10:05)
[2019-03-26] MEDS: Cholecalciferol TAB* 1000 UNITS PO SCH (10:10)
[2019-03-26] MEDS: Cyanocobalamin TAB* 500 MCG PO SCH (10:11)
[2019-03-26] MEDS: Potassium Chlor TAB* 20 MEQ TAB.ER PO SCH (10:11)
[2019-03-26] MEDS: Multivitamins/Minerals TAB PO SCH (10:11)
--- NOTE | 2019-03-26 17:09 | PN ---
Subjective Date of Service: 03/26/19 Interval History: HD 3 on 03/26 Overnight-Pt was agitated and was given halodol VS stable Patient was agitated but was answering questions. She denied chest pain, SOB and palpitation or lightheadedness Objective Active Medications: Amiodarone HCl (Cordarone Tab*) 100 mg PO DAILY [facility] Last Admin: 03/26/19 10:03 Dose: 100 mg Amlodipine Besylate (Norvasc Tab*) 2.5 mg PO DAILY [facility] Last Admin: 03/26/19 10:05 Dose: 2.5 mg Aspirin (Aspirin Ec Tab*) 81 mg PO DAILY [facility] Last Admin: 03/26/19 10:05 Dose: 81 mg Calcium Carbonate (Tums*) 1,000 mg PO BID PRN PRN Reason: INDIGESTION Cholecalciferol (Vitamin D Tab*) 2,000 units PO DAILY [facility] Last Admin: 03/26/19 10:10 Dose: Not Given Cyanocobalamin (Vitamin B12 Tab*) 1,000 mcg PO DAILY [facility] Last Admin: 03/26/19 10:11 Dose: Not Given Gabapentin (Neurontin Cap(*)) 300 mg PO BEDTIME [facility] Last Admin: 03/25/19 21:48 Dose: 300 mg Multivitamins/Minerals (Theragran/Minerals Tab*) 1 tab PO DAILY [facility] Last Admin: 03/26/19 10:11 Dose: Not Given Potassium Chloride (Klor Con Er Tab*) 20 meq PO DAILY [facility] Last Admin: 03/26/19 10:11 Dose: Not Given Risperidone (Risperdal) 0.5 mg PO BEDTIME [facility] Ticagrelor (Brilinta*) 90 mg PO BID [facility] Last Admin: 03/26/19 10:04 Dose: 90 mg Vital Signs - 8 hr 03/26/19 15:07 Temperature 98.4 F Pulse Rate 79 Respiratory 16 Rate Blood Pressure 133/76 (mmHg) O2 Sat by Pulse 99 Oximetry Oxygen Devices in Use Now: None Exam: Patient is sitting in a bed with no acute distress. HEENT: Normocephalic and Atraumatic Lungs: Clear with no added sounds Heart: S1/S2 heard with murmur Abdomen: soft, nondistended and nontender Extremities: Normal Neuro: Alert, oriented and conscious Result Diagrams: 03/26/19 05:15 03/26/19 05:15 Additional Lab and Data: Lab Results 03/24/19 03/24/19 Range/Units 21:47 21:47 WBC 5.4 (3.5-10.8) 10^3/uL RBC 4.16 (3.70-4.87) 10^6 /uL Hgb 14.3 (12.0-16.0) g/dL Hct 42 (35-47) % MCV 102 H (80-97) fL MCH 34 H (27-31) pg MCHC 34 (31-36) g/dL RDW 14 (10-15) % Plt Count 145 L (150-450) 10^3/uL MPV 9.0 (7.4-10.4) fL Neut % (Auto) 79.0 % Lymph % (Auto) 12.8 % [place] % (Auto) 7.4 % Eos % (Auto) 0.3 % Baso % (Auto) 0.5 % Absolute Neuts (auto) 4.3 (1.5-7.7) 10^3/ul Absolute Lymphs (auto) 0.7 L (1.0-4.8) 10^3/ul Absolute Monos (auto) 0.4 (0-0.8) 10^3/ul Absolute Eos (auto) 0.0 (0-0.6) 10^3/ul Absolute Basos (auto) 0.0 (0-0.2) 10^3/ul Absolute Nucleated RBC 0.0 10^3/ul Nucleated RBC % 0.0 Sodium 138 (135-145) mmol/L Potassium 4.2 (3.5-5.0) mmol/L Chloride 105 (101-111) mmol/L Carbon Dioxide 27 (22-32) mmol/L Anion Gap 6 (2-11) mmol/L BUN 29 H (6-24) mg/dL Creatinine 1.07 H (0.51-0.95) mg/dL Est GFR ( Amer) 58.7 (>60) Est GFR (Non-Af Amer) 48.5 (>60) BUN/Creatinine Ratio 27.1 H (8-20) Glucose 106 H (70-100) mg/dL Calcium 10.0 (8.6-10.3) mg/dL Phosphorus 3.8 (2.5-5.0) mg/dL Magnesium 2.0 (1.9-2.7) mg/dL Total Bilirubin 0.50 (0.2-1.0) mg/dL AST 28 (13-39) U/L ALT 22 (7-52) U/L Alkaline Phosphatase 62 (34-104) U/L Total Creatine Kinase 92 (10-223) U/L Troponin I 0.04 H* (<0.04) ng/mL C-Reactive Protein < 1.00 (<8.01) mg/L Total Protein 6.4 (6.4-8.9) g/dL Albumin 3.8 (3.2-5.2) g/dL Globulin 2.6 (2-4) g/dL Albumin/Globulin Ratio 1.5 (1-3) TSH 1.03 (0.34-5.60) mcIU/mL Assess/Plan/Problems-Billing Assessment: 88 y/o F with history of dementia presented after fall and was found lying on a floor. Haile is a poor historian; doesn't recall any event. Found to have abnormal urinalysis with normal CK. - Patient Problems (1) Fall Current Visit: Yes Status: Acute Comment: -She was found lying on a floor but was conscious - nOt sure if it ws due to weakness or tripping or arrhythmia;as she was alone in home and doesnot recall -she was d/c from [facility] yesterday after she was admitted for b/l leg weakness and pain. -A/c to her grandson she was not able to go to wheelchair to car. -ck normal -creatinine noraml today -we will monitor in tele -waiting for KAY placement (2) Abnormal urinalysis Current Visit: Yes Status: Acute Code(s): R82.90 - UNSPECIFIED ABNORMAL FINDINGS IN URINE SNOMED Code(s): 366103411 Comment: -asymptomatic -urine analyis showed leucocyte esterase, WBC and RBC with no bacteria -we will wait for urine culture -No abx for now (3) Nonsustained ventricular tachycardia Current Visit: No Status: Acute Code(s): I47.2 - VENTRICULAR TACHYCARDIA SNOMED Code(s): 495358485 Comment: -nonsustained Asymptomatic and vitals stable -on amiodarone (4) Hypertension Current Visit: No Status: Acute Code(s): I10 - ESSENTIAL (PRIMARY) HYPERTENSION SNOMED Code(s): 44804671 Comment: -on amlodipine (5) DVT prophylaxis Current Visit: No Status: Acute Code(s): Z29.9 - ENCOUNTER FOR PROPHYLACTIC MEASURES, UNSPECIFIED SNOMED Code(s): 063254131 Comment: -SCD -ambulating well (6) Full code status Current Visit: No Status: Acute Code(s): Z78.9 - OTHER SPECIFIED HEALTH STATUS SNOMED Code(s): 927791405 Status and Disposition: inpatient waiting placement Attending: Minnie Young Attestation Documenting Resident: Tyree Govea Supervising Physician: Minnie Young Attestation: This service has been performed in part by a resident under the direction of a teaching physician.I, Minnie Young, performed the service, or was physically present during the critical, or noel portions of the service, furnished by the resident. I participated in the management of the patient.
[2019-03-26] MEDS: Gabapentin CAP(*) 300 MG PO SCH (20:11)
--- NOTE | 2019-03-27 06:55 | PN ---
Subjective Date of Service: 03/27/19 Interval History: HD 4 on 03/27 Overnight-no acute overnight events VS stable hypoactive than usual; generalized weakness; was lethargic but was responsive On orientation patient returned back to baseline. less ambulatory than yesterday Objective Active Medications: Amiodarone HCl (Cordarone Tab*) 100 mg PO DAILY [facility] Last Admin: 03/26/19 10:03 Dose: 100 mg Amlodipine Besylate (Norvasc Tab*) 2.5 mg PO DAILY [facility] Last Admin: 03/26/19 10:05 Dose: 2.5 mg Aspirin (Aspirin Ec Tab*) 81 mg PO DAILY [facility] Last Admin: 03/26/19 10:05 Dose: 81 mg Calcium Carbonate (Tums*) 1,000 mg PO BID PRN PRN Reason: INDIGESTION Cholecalciferol (Vitamin D Tab*) 2,000 units PO DAILY [facility] Last Admin: 03/26/19 10:10 Dose: Not Given Cyanocobalamin (Vitamin B12 Tab*) 1,000 mcg PO DAILY [facility] Last Admin: 03/26/19 10:11 Dose: Not Given Gabapentin (Neurontin Cap(*)) 300 mg PO BEDTIME [facility] Last Admin: 03/26/19 20:11 Dose: 300 mg Multivitamins/Minerals (Theragran/Minerals Tab*) 1 tab PO DAILY [facility] Last Admin: 03/26/19 10:11 Dose: Not Given Potassium Chloride (Klor Con Er Tab*) 20 meq PO DAILY [facility] Last Admin: 03/26/19 10:11 Dose: Not Given Risperidone (Risperdal) 0.5 mg PO BEDTIME [facility] Last Admin: 03/26/19 20:11 Dose: 0.5 mg Ticagrelor (Brilinta*) 90 mg PO BID [facility] Last Admin: 03/26/19 20:11 Dose: 90 mg Vital Signs - 8 hr 03/26/19 03/27/19 23:18 03:58 Temperature 98.6 F 98.3 F Pulse Rate 56 69 Respiratory 16 16 Rate Blood Pressure 129/67 150/100 (mmHg) O2 Sat by Pulse 98 100 Oximetry Oxygen Devices in Use Now: None Exam: Patient is lying on a bed with no acute distress HEENT: Normocephalic and Atraumatic Lungs: Clear with no added sounds Heart: S1/S2 heard with murmur Abdomen: soft, non-distended and non-tender Extremities: Normal Neuro: Alert, oriented and conscious. No focal deficit noted Result Diagrams: 03/27/19 14:29 03/27/19 14:29 Additional Lab and Data: Lab Results 03/24/19 03/24/19 Range/Units 21:47 21:47 WBC 5.4 (3.5-10.8) 10^3/uL RBC 4.16 (3.70-4.87) 10^6 /uL Hgb 14.3 (12.0-16.0) g/dL Hct 42 (35-47) % MCV 102 H (80-97) fL MCH 34 H (27-31) pg MCHC 34 (31-36) g/dL RDW 14 (10-15) % Plt Count 145 L (150-450) 10^3/uL MPV 9.0 (7.4-10.4) fL Neut % (Auto) 79.0 % Lymph % (Auto) 12.8 % [place] % (Auto) 7.4 % Eos % (Auto) 0.3 % Baso % (Auto) 0.5 % Absolute Neuts (auto) 4.3 (1.5-7.7) 10^3/ul Absolute Lymphs (auto) 0.7 L (1.0-4.8) 10^3/ul Absolute Monos (auto) 0.4 (0-0.8) 10^3/ul Absolute Eos (auto) 0.0 (0-0.6) 10^3/ul Absolute Basos (auto) 0.0 (0-0.2) 10^3/ul Absolute Nucleated RBC 0.0 10^3/ul Nucleated RBC % 0.0 Sodium 138 (135-145) mmol/L Potassium 4.2 (3.5-5.0) mmol/L Chloride 105 (101-111) mmol/L Carbon Dioxide 27 (22-32) mmol/L Anion Gap 6 (2-11) mmol/L BUN 29 H (6-24) mg/dL Creatinine 1.07 H (0.51-0.95) mg/dL Est GFR ( Amer) 58.7 (>60) Est GFR (Non-Af Amer) 48.5 (>60) BUN/Creatinine Ratio 27.1 H (8-20) Glucose 106 H (70-100) mg/dL Calcium 10.0 (8.6-10.3) mg/dL Phosphorus 3.8 (2.5-5.0) mg/dL Magnesium 2.0 (1.9-2.7) mg/dL Total Bilirubin 0.50 (0.2-1.0) mg/dL AST 28 (13-39) U/L ALT 22 (7-52) U/L Alkaline Phosphatase 62 (34-104) U/L Total Creatine Kinase 92 (10-223) U/L Troponin I 0.04 H* (<0.04) ng/mL C-Reactive Protein < 1.00 (<8.01) mg/L Total Protein 6.4 (6.4-8.9) g/dL Albumin 3.8 (3.2-5.2) g/dL Globulin 2.6 (2-4) g/dL Albumin/Globulin Ratio 1.5 (1-3) TSH 1.03 (0.34-5.60) mcIU/mL Assess/Plan/Problems-Billing Assessment: 88 y/o F with history of dementia presented after fall and was found lying on a floor. Haile is a poor historian; doesn't recall any event. Found to have abnormal urinalysis with normal CK. - Patient Problems (1) Fall Current Visit: Yes Status: Acute Comment: -was hypoactive today with less ambulation; lethargic but was responsive -has dementia -more likely hospital induced delirium; less likely stroke as no focal deficit -no arrhythmia noted at that particular point -has abnormal urinalysis- we will repeat blood count and metabolic panel - patient will benefit from frequent orientation and ambulation and being around known people -we also stopped her brilinta as she is high fall risk; it was started after she had stent in leg in january by Dr. Joy; discussed with Dr. joy and agrees with plan (2) Abnormal urinalysis Current Visit: Yes Status: Acute Code(s): R82.90 - UNSPECIFIED ABNORMAL FINDINGS IN URINE SNOMED Code(s): 362651995 Comment: -asymptomatic -urine analyis showed leucocyte esterase, WBC and RBC with no bacteria -urine culture- negative (3) Nonsustained ventricular tachycardia Current Visit: No Status: Acute Code(s): I47.2 - VENTRICULAR TACHYCARDIA SNOMED Code(s): 303026815 Comment: -nonsustained Asymptomatic and vitals stable -on amiodarone (4) Hypertension Current Visit: No Status: Acute Code(s): I10 - ESSENTIAL (PRIMARY) HYPERTENSION SNOMED Code(s): 30463019 Comment: -on amlodipine (5) DVT prophylaxis Current Visit: No Status: Acute Code(s): Z29.9 - ENCOUNTER FOR PROPHYLACTIC MEASURES, UNSPECIFIED SNOMED Code(s): 424590245 Comment: -SCD -ambulating well (6) Full code status Current Visit: No Status: Acute Code(s): Z78.9 - OTHER SPECIFIED HEALTH STATUS SNOMED Code(s): 401563943 Status and Disposition: inpatient waiting placement Attending: Colt Sagastume Attestation Documenting Resident: Tyree Govea Supervising Physician: Colt Sagastume Attending/Supervising Physician Comment: Agree with note as outlined here in Dr. Govea's note unless indicated here. Altered sensorium this AM, less wakeful but remained AOX1 with slowed responses and level of alertness. Resolved spontaneously. Suspected acute hospital acquired delerium. Will continue to monitor. Start heparin for DVT ppx Attestation: This service has been performed in part by a resident under the direction of a teaching physician.I, Colt Sagastume, performed the service, or was physically present during the critical, or noel portions of the service, furnished by the resident. I participated in the management of the patient.
[2019-03-27] MEDS: Aspirin EC TAB* 81 MG TAB.EC PO SCH (10:40)
[2019-03-27] MEDS: Ticagrelor* 90 MG TAB PO SCH (10:41)
[2019-03-27] MEDS: Amiodarone TAB* 200 MG PO SCH (10:42)
[2019-03-27] MEDS: amLODIPine TAB* 5 MG PO SCH (10:43)
[2019-03-27] MEDS: Cholecalciferol TAB* 1000 UNITS PO SCH (10:44)
[2019-03-27] MEDS: Multivitamins/Minerals TAB PO SCH (10:46)
[2019-03-27] MEDS: Cyanocobalamin TAB* 500 MCG PO SCH (10:46)
[2019-03-27] MEDS: Potassium Chlor TAB* 20 MEQ TAB.ER PO SCH (10:46)
[2019-03-27 15:01] LABS: BUN/Creatinine Ratio 25.3 (8-20); Calcium 9.9 mg/dL (8.6-10.3); EGFR African American 74.5 (>60); EGFR Non-African American 61.6 (>60); Potassium 3.9 mmol/L (3.5-5.0)
[2019-03-27 15:35] LABS: ABS Lymphocytes 0.5 10^3/ul (1.0-4.8); ABS Monocytes 0.3 10^3/ul (0-0.8); ABS Neutrophils 2.9 10^3/ul (1.5-7.7); Eosinophil % 0.9 %; Hematocrit 44 % (35-47); Hemoglobin 14.8 g/dL (12.0-16.0); Lymphocyte % 13.7 %; Mean Corpuscular HGB Conc 34 g/dL (31-36); Mean Corpuscular Hemoglobin 35 pg (27-31); Mean Corpuscular Volume 102 fL (80-97); Platelet Count 159 10^3/uL (150-450); Red Blood Count 4.29 10^6 /uL (3.70-4.87); Red Cell Distribution Width 14 % (10-15); White Blood Count 3.8 10^3/uL (3.5-10.8)
[2019-03-27] MEDS: Enoxaparin(*) 40 MG/0.4 ML SYR SUBCUT SCH (17:46)
[2019-03-27] MEDS: Gabapentin CAP(*) 300 MG PO SCH (20:26)
[2019-03-28] MEDS: amLODIPine TAB* 5 MG PO SCH (10:03)
[2019-03-28] MEDS: Amiodarone TAB* 200 MG PO SCH (10:03)
[2019-03-28] MEDS: Multivitamins/Minerals TAB PO SCH (10:04)
[2019-03-28] MEDS: Aspirin EC TAB* 81 MG TAB.EC PO SCH (10:04)
[2019-03-28] MEDS: Cholecalciferol TAB* 1000 UNITS PO SCH (10:04)
[2019-03-28] MEDS: Cyanocobalamin TAB* 500 MCG PO SCH (10:04)
[2019-03-28] MEDS: Potassium Chlor TAB* 20 MEQ TAB.ER PO SCH (10:05)
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
[2019-03-28] MEDS: Enoxaparin(*) 40 MG/0.4 ML SYR SUBCUT SCH (17:56)
[2019-03-28] MEDS: Gabapentin CAP(*) 300 MG PO SCH (20:27)
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
[2019-03-29] MEDS: amLODIPine TAB* 5 MG PO SCH (09:57)
[2019-03-29] MEDS: Amiodarone TAB* 200 MG PO SCH (09:57)
[2019-03-29] MEDS: Potassium Chlor TAB* 20 MEQ TAB.ER PO SCH (09:58)
[2019-03-29] MEDS: Multivitamins/Minerals TAB PO SCH (09:58)
[2019-03-29] MEDS: Cyanocobalamin TAB* 500 MCG PO SCH (09:58)
[2019-03-29] MEDS: Aspirin EC TAB* 81 MG TAB.EC PO SCH (09:58)
[2019-03-29] MEDS: Cholecalciferol TAB* 1000 UNITS PO SCH (09:58)
--- NOTE | 2019-03-29 14:49 | PN ---
Hospitalist Progress Note Date of Service: 03/29/19 Goals of Care Discussion: Spoke with pts son, Ed, who is her health care proxy about her medical conditions (dementia, delerium, likely FTT) and he concurs she has had months of decline and there are safety concerns. He is working with CM about placement. We discuss she has a bit of paranoia here which we see in dementia and keeps her from meaningfully engaging in her workup. We also discuss that she does not really have capacity (at this time to make medical decisions) as she does not understand her own health issues or the consequences of her own health choices. To this matter, he agrees and understands that it is his role as health care proxy to make decisions with and for her if needed. We discuss overall prognosis and her GOC, he was not aware she is full code in terms of life sustaning orders and he feels that this does not represent her true wishes, in fact he is surprised that she is, as she values independence above anything and not being in the hospital. he has discussed some GOC with her prior to her decline and she had said she did not want "heroic measures." To this end we discuss if she does infact reflect a DNR which he felt she does. We discuss changing the MOSLT form when he comes in later in the evening and he agrees. He feels she would want trial intubation, CPAP/BIPAP, pressors, abx, and fluids , but she would not want a reversal of a natural process of her heart stopping.
[2019-03-29] MEDS: Enoxaparin(*) 40 MG/0.4 ML SYR SUBCUT SCH (18:21)
--- NOTE | 2019-03-29 19:52 | DS ---
DICTATION ENDS ABRUPTLY - FULLY REDICTATED DISCHARGE SUMMARY: DATE OF ADMISSION: 03/24/19 DATE OF DISCHARGE: Anticipated date of discharge is 03/30/19. PRIMARY CARE PROVIDER: [facility] as she has no primary care provider, also [facility]. Of note, this discharge summary can act as an H and P for [facility] admission. DISPOSITION AT THE TIME OF DISCHARGE: To be discharged to [facility]. CONDITION: Stable at the time of discharge. PRIMARY DIAGNOSES: 1. Delirium with dementia. 2. Mechanical fall. 3. Failure to thrive. SECONDARY DIAGNOSES: 1. Dementia with progressive decline for the last 3 to 4 months. 2. Hypertension. 3. History of nonsustained ventricular tachycardia, on amiodarone. 4. History of mitral regurgitation and aortic stenosis. 5. Peripheral vascular disease status post peripheral stenting in October 2018. MEDICATIONS AT THE TIME OF DISCHARGE: 1. Amiodarone 100 mg p.o. daily. 2. Amlodipine 2.5 mg p.o. daily. 3. Aspirin 81 mg p.o. daily. 4. Calcium carbonate 1000 mg p.o. b.i.d. 5. Vitamin D 2000 units p.o. daily. 6. Cyanocobalamin 1000 mcg p.o. daily. 7. Gabapentin 300 mg p.o. q.h.s. 8. Multivitamin daily. 9. Potassium chloride 20 mEq p.o. daily. 10. Risperidone 0.5 mg p.o. q.h.s. Medications changes on this hospitalization include the addition of risperidone 0.5 mg p.o. q.h.s. and discontinuation of ticagrelor 90 mg p.o. b.i.d. HISTORY OF PRESENT ILLNESS AND HOSPITAL COURSE: This is an 88-year-old female with the above past medical history, who presented to the emergency room DICTATION ENDS ABRUPTLY [id number]/[facility] #: [id number] [facility]
--- NOTE | 2019-03-29 20:00 | DS ---
CC: [facility]; [facility] * DISCHARGE SUMMARY: DATE OF ADMISSION: 03/25/19 DATE OF DISCHARGE: 03/30/19. PRIMARY CARE PROVIDER: None. DISPOSITION: The patient is being discharged to [facility]. This discharge summary serves as an H and P for [facility] admission. PRIMARY DIAGNOSES: 1. Mechanical fall. 2. Delirium with dementia. 3. Failure to thrive with worsening dementia. SECONDARY DIAGNOSES: 1. History of aortic stenosis, status post AVR in 2005. 2. History of nonsustained ventricular tachycardia, on amiodarone. 3. Hypertension. 4. Distant history of adenocarcinoma of the colon s/p treatment/resection. 5. Coronary artery disease. 6. Peripheral arterial disease, status post stenting in right leg. 7. Dementia. MEDICATIONS AT TIME OF DISCHARGE: 1. Gabapentin 300 mg p.o. daily. 2. Amlodipine 2.5 mg daily. 3. Potassium chloride 20 mEq oral daily. 4. Multivitamin 1 daily. 5. Vitamin B12 1000 mcg oral daily. 6. Vitamin D 2000 units oral daily. 7. Calcium 1000 mg p.o. b.i.d. p.r.n. 8. Aspirin 81 mg daily. 9. Amiodarone 100 mg p.o. daily. 10. Risperidone 0.5 mg p.o. daily. Changes to medications during this hospitalization include the discontinuation of Brilinta as she is no longer in need of them from a stent standpoint, and the addition of risperidone from behavioral standpoint. HISTORY OF PRESENT ILLNESS AND HOSPITAL COURSE: An 88-year-old female with above past medical history, who presented to the emergency room on 03/24/19 and was admitted on 03/25/19 after she was found down on the floor in her home. Of note, she was recently admitted and discharged from [facility] for lower extremity weakness, and on the day of discharge from [facility], she was found down and confused by her grandson. In the emergency room, she was delirious and staff was unable to obtain HPI. Studies including labs and CTA of her head were done, which were notable for possibly abnormal urinalysis and the decision to admit the patient for delirium with dementia, possibly urinary tract infection, and mechanical fall were made. Her hospital course by problem is as follows: 1. Delirium with dementia. The patient had no definitive source of infection with negative urine culture and her delirium was thought to be likely hospital acquired from her prior stay at [facility] as well as possible worsening dementia and possibly worsening delirium in the setting of dementia. Risperidone was started for behavioral component and the patient improved somewhat. Discussion was had with her caregiver who is her son, Ed who notes that she has had a subacute decline in several months. She no longer drives and he feels that she is no longer able to care for herself secondary to her confusion, thus most likely supporting the delirium associated with dementia. 2. Dementia. The patient has carried this diagnosis for some years, although she has had more acute and progressive decline since the last 6 months. Of note , the patient does wax and wane with her sensorium and can be awake, alert and oriented x1 to 2 early in the morning, although can become quite confused in the afternoon consistent with ing. Again, risperidone was started for behavioral component and the patient had significant response to this. We were unable to do a MOCA secondary to her waxing and waning status. 3. History of PVD. Brilinta was stopped in consultation with interventional radiology who reported she had completed her 180 day post stenting course. 4. Hypertension. Home medications were continued. 5. Weakness and leg cramps. The patient has been on gabapentin for some time, and her recurrent complaints are likely from PVD. The patient was able to work with PT. She will continue subacute rehab, most likely represents ongoing failure to thrive as well as worsening delirium and dementia. 6. Nonsustained VT. The patient's amiodarone was continued. 7. Goals of care. Goals of care discussion was attempted to be had with patient, although she does not have capacity to make decisions for herself. This was shared with Ed and with discussion, the patient was made DNR which Ed feels is actually most consistent with her wishes. MOLST form was completed at the bedside. 8. DVT prophylaxis. The patient was on Lovenox. LABS AND STUDIES DURING THIS HOSPITALIZATION: Labs on 03/27/19 showed unremarkable CBC other than an MCV of 202 and unremarkable BMP. Troponin was mildly elevated on admission at 0.04 which remained plateaued. Imaging include brain CT with no acute intracranial abnormality, but no other imaging was done. CONSULTANTS: Included none. ITEMS TO FOLLOW UP ON STATUS POST DISCHARGE: 1. Dementia with delirium. The patient may need ongoing behavioral interventions and continued goals of care. Discussion with Ed, her son, her overall goal is to return to home and if there is a possibility of hospital- acquired delirium, this may be reasonable to achieve, although time will tell and Ed and herself are counseled on this possibility. TIME SPENT: Thirty-five minutes was spent on the planning of this discharge with over half of that spent directly at the bedside of the patient providing direct patient care. Physical exam was done on day of discharge that is included in the progress note and this discharge summary is a consolidation of a number of events that happened over a 7-day hospitalization. If there are any questions about the care of this patient during this hospitalization, please do not hesitate to reach out and contact me directly, my cellphone is [phone]. [id number]/[facility] #: [id number] [place]
[2019-03-29] MEDS: Gabapentin CAP(*) 300 MG PO SCH (22:59)
[2019-03-30] MEDS: amLODIPine TAB* 5 MG PO SCH (10:33)
[2019-03-30] MEDS: Aspirin EC TAB* 81 MG TAB.EC PO SCH (10:34)
[2019-03-30] MEDS: Cyanocobalamin TAB* 500 MCG PO SCH (10:35)
[2019-03-30] MEDS: Multivitamins/Minerals TAB PO SCH (10:35)
[2019-03-30] MEDS: Cholecalciferol TAB* 1000 UNITS PO SCH (10:35)
[2019-03-30] MEDS: Amiodarone TAB* 200 MG PO SCH (10:35)
[2019-03-30] MEDS: Potassium Chlor TAB* 20 MEQ TAB.ER PO SCH (10:35)
[2019-03-30 10:42] VITALS: BP 128/66
--- NOTE | 2019-03-30 13:18 | PN ---
Hospitalist Progress Note Date of Service: 03/30/19 Day of discharge note: 88F PMH NSVT on amiodarone, dementia AOx1-2 at baseline came with mechanical fall, likely delirium on dementia from prior hospital stay and FTT. Overnight no acute events VSS This morning seen in bed, she is not participatory in exam "go away, I'm sleeping" oriented to self. PE Frail woman in NAD CTABL RRR no MRG Belly soft NT ND Ext warm well perfused no edema AOX1 Overall, plan is for placement, waxing and waining with no clear infectious source #Dementia: Started risperdone for behaviors #DVT PPX: Lovenox #Code: DNR-see discussion Dispo: To CR today, see DC summary
--- NOTE | 2019-03-31 17:37 | DS ---
DISCHARGE SUMMARY: ADDENDUM: DISPOSITION AT THE TIME OF DISCHARGE: Stable to be discharged to [facility]. [id number]/[facility] #: [id number]
== END 2019-03-30 11:00 | DRG 884 ==
LOC: ED 20:44 → MEDTELE 03-25 05:08
PROVIDERS: ADMIT Internal Medicine; ATTEND Internal Medicine
DX: F03.90 Unspecified dementia, unspecified severity, without behavioral disturbance, psychotic disturbance, mood disturbance, and anxiety (principal); F05 Delirium due to known physiological condition; I47.2 Ventricular tachycardia; N17.9 Acute kidney failure, unspecified; Z68.1 Body mass index [BMI] 19.9 or less, adult; R62.7 Adult failure to thrive; J44.9 Chronic obstructive pulmonary disease, unspecified; I10 Essential (primary) hypertension; I25.10 Atherosclerotic heart disease of native coronary artery without angina pectoris; Z66 Do not resuscitate; I73.9 Peripheral vascular disease, unspecified; R53.1 Weakness; R25.2 Cramp and spasm; R82.90 Unspecified abnormal findings in urine; J45.909 Unspecified asthma, uncomplicated; K57.90 Diverticulosis of intestine, part unspecified, without perforation or abscess without bleeding; W18.30XA Fall on same level, unspecified, initial encounter; Y92.009 Unspecified place in unspecified non-institutional (private) residence as the place of occurrence of the external cause; Z95.2 Presence of prosthetic heart valve; Z85.038 Personal history of other malignant neoplasm of large intestine; Z85.828 Personal history of other malignant neoplasm of skin; Z79.82 Long term (current) use of aspirin; Z79.899 Other long term (current) drug therapy; Z88.8 Allergy status to other drugs, medicaments and biological substances; Z82.5 Family history of asthma and other chronic lower respiratory diseases; Z83.3 Family history of diabetes mellitus; Z82.49 Family history of ischemic heart disease and other diseases of the circulatory system; Z87.891 Personal history of nicotine dependence; Z91.81 History of falling
CPT/HCPCS: 36415; 70450; 80048; 80053; 81003; 81015; 82550; 83735; 84100; 84443; 84484; 85025; 86140; 87086; 93005; 99285; A9270-GY; G8978-GP-CK; G8979-GP-CI; J0696; J1630; J1650

== ENCOUNTER 2019-06-21 02:39 | Inpatient (IN) | payer MEDICARE ==
[2019-06-21] MEDS ORDERED: NS 0.9% 1000 ML** 1,000 ML IV ONE (02:40)
--- NOTE | 2019-06-21 02:52 | ED ---
Neurological HPI - HPI Summary HPI Summary: The patient is an 89 y/o female arriving by ambulance to [facility] from [facility] with concern for decreased responsiveness this morning. Per EMS, the patient was found lying on the floor in her room without signs of trauma, but she was not responsive. They are unsure exactly what time she was on the floor, but they do 45 minute checks. She is usually able to ambulate. EMS reports pupils dilated and nonreactive, responsive to painful stimuli. Patient currently on 81mg Aspirin daily but no other blood thinners. Past medical history (obtained from medical records): angina, CAD, HTN, aortic valve repair, asthma, colon cancer with resection, neuropathy, vertigo. Former smoker. Patient arrived at 0238, provider at side of stretcher. Maddy chayito called at 0240. Patient immediately to [place]. [facility] unable to provide updated MOLST Form from the facility. MOLST Form (03/29/19 at [facility]) states: DNR order; Limited medical interventions; A trial period for intubation and mechanical ventilation, Noninvasive ventilation in the health landcare officer agrees that it is appropriate; Send to hospital, if necessary, based on MOLST orders; A trial period of feeding tube , A trial period of IV fluids; Use antibiotics. - History of Current Complaint Stated Complaint: UNRESPONSIVE Time Seen by Provider: 06/21/19 02:40 Last Known Well Date: unknown time Hx Obtained From: EMS, Medical Records Hx From Patient Unobtainable Due To: Other - Level 5 Caveat secondary to decreased responsiveness Onset/Duration: Still Present Current Severity: Severe Pain Scale Used: 0-10 Numeric Character: Responsiveness Aggravating: Unknown Alleviating: Unknown TPA Considered: No - Brain CT shows bleed Related Hx: ASA - 81mg - Additional Pertinent History Primary Care Physician: [id number] - Allergy/Home Medications Allergies/Adverse Reactions: Allergies Allergy/AdvReac Type Severity Reaction Status Date / Time aspartame Allergy Unknown Verified 03/24/19 20:57 Reaction Details fluvastatin [From Lescol] Allergy Unknown Verified 03/24/19 20:57 Reaction Details metoprolol Allergy Unknown Verified 03/24/19 20:57 Reaction Details pentoxifylline Allergy Unknown Verified 03/24/19 20:57 Reaction Details rosuvastatin [From Crestor] Allergy Unknown Verified 03/24/19 20:57 Reaction Details simvastatin [From Zocor] Allergy Unknown Verified 03/24/19 20:57 Reaction Details stevioside [From Stevia] Allergy Unknown Verified 03/24/19 20:57 Reaction Details sucralose Allergy Unknown Verified 03/24/19 20:57 [From Splenda (sucralose)] Reaction Details atenolol AdvReac Unknown See Comment Verified 03/24/19 20:57 atorvastatin [From Lipitor] AdvReac Leg Cramps Verified 03/24/19 20:57 clopidogrel [From Plavix] AdvReac GI Upset Verified 03/24/19 20:57 ezetimibe [From Zetia] AdvReac Leg Cramps Verified 03/24/19 20:57 niacin AdvReac Leg Cramps Verified 03/24/19 20:57 Atxblwr-Hhm-Pcl Reductase AdvReac Leg Cramps Verified 03/24/19 20:57 Inhibitor ARTIFICIAL SWEETENERS Allergy Unknown Uncoded 03/24/19 20:57 Reaction Details PMH/Surg Hx/FS Hx/Imm Hx Endocrine/Hematology History: Denies: Hx Diabetes, Hx Sickle Cell Disease Cardiovascular History: Reports: Hx Angina, Hx Coronary Artery Disease, Hx Hypertension, 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, Hx Valvular Heart Disease - aortic valve repair Denies: Hx Hypercholesterolemia, Hx Myocardial Infarction, Hx Pacemaker/ICD Respiratory History: Reports: Hx Asthma Denies: Hx Chronic Obstructive Pulmonary Disease (COPD), Other Respiratory Problems/Disorders GI History: Reports: Other GI Disorders - colon resection, colon CA History: Denies: Hx Kidney Stones, Other Problems/Disorders Musculoskeletal History: Denies: Hx Arthritis, Hx Rheumatoid Arthritis, Hx Osteoporosis Sensory History: Reports: Hx Cataracts, Other Sensory Impairments - vertigo Denies: Hx Contacts or Glasses, Hx Deafness, Hx Hearing Aid Opthamlomology History: Reports: Hx Cataracts, Other Sensory Impairments - vertigo Denies: Hx Contacts or Glasses Neurological History: Reports: Other Neuro Impairments/Disorders - neuropathy, vertigo Psychiatric History: Denies: Hx Panic Disorder - Cancer History Cancer Type, Location and Year: Colon Cancer, SKIN Hx Chemotherapy: Yes - COLON CANCER, 70'S Hx Radiation Therapy: Yes - Surgical History Surgical History: Yes Surgery Procedure, Year, and Place: COLON RESECTION. AORTIC VALVE REPLACED 05/24- [facility] [address] [facility] [employer] PORCINE VALVE: [id number], CONDITIONAL FOR 1.5T TO 3.0 T MRI MAX SPATIAL GRADIENT LESS THAN OR EQUAL TO 3000 GAUSS/cm ( INFORMATION SCANNED INTO PT'S EMR). ANGIOPLASTY. HERNIA REPAIR Xs 2 -1998 & 2012. CATARACT. STENTS IN LEGS TO OPEN UP BLOODFLOW. CYSTS REMOVED FROM VARIOUS PARTS OF BODY Hx Anesthesia Reactions: No - Family History Known Family History: Positive: Cardiac Disease, Hypertension - Social History Alcohol Use: None Hx Substance Use: No Substance Use Type: Reports: None Hx Tobacco Use: No Smoking Status (MU): Former Smoker Type: Cigarettes Amount Used/How Often: occasionally from age [age]. - Additional Comments History Additional Comments: angina, CAD, HTN, aortic valve repair, asthma, colon cancer with resection, neuropathy, vertigo, no previous strokes Review of Systems - ROS Summary Review of Systems Summary: Home Medications Medication Instructions Recorded Confirmed Type Aspirin EC TAB* [Ecotrin EC Low 81 mg PO DAILY 12/11/18 03/24/19 History Dose 81 MG*] Calcium Carbonate CHEW TAB* [Tums*] 1,000 mg PO BID PRN 12/11/18 03/24/19 History Cholecalciferol TAB* [Vitamin D 2,000 units PO DAILY 12/11/18 03/24/19 History TAB*] Cyanocobalamin TAB* [Vitamin B12 1,000 mcg PO DAILY 12/11/18 03/24/19 History TAB*] Gabapentin CAP(*) [Neurontin 100 300 mg PO BEDTIME 12/11/18 03/24/19 History mg CAP(*)] Amiodarone TAB* [Cordarone Tab*] 100 mg PO DAILY #30 tab 01/12/19 03/24/19 Rx Potassium Chlor TAB* [Potassium 20 meq PO DAILY #30 tab.er 01/12/19 03/24/19 Rx Chlor TAB 20 MEQ*] amLODIPine TAB* [Norvasc 5 mg TAB*] 2.5 mg PO DAILY #30 tab 01/12/19 03/24/19 Rx Multivitamin/Iron/Folic Acid 1 each PO DAILY 01/20/19 03/24/19 History [Centrum Adults Tablet] Risperidone [Risperdal] 0.5 mg PO BEDTIME 30 Days #30 tab 03/29/19 Rx Neurological: Other - decreased resposiveness All Other Systems Reviewed And Are Negative: No - Comments Additional Review of Systems Comments: Level 5 Caveat secondary to patient having decreased responsiveness Physical Exam - Summary Physical Exam Summary: General: Well-developed, Well-nourished elderly female. No acute distress. HEENT: Normocephalic, Atraumatic. Eyes: Pupils 8mm and fixed, Nonresponsive Oropharynx: Clear, mucous membranes moist, (-) exudates. Neck: Soft, FROM, (-) lymphadenopathy, (-) thyromegaly, (-) JVD. Cardiovascular: Normal sinus rhythm, (-) murmur. Lungs: Rhonchous breath sounds, Coarse breath sounds, (-) wheezes, (-) rales. Abdomen: Soft, non-tender, non-distended, (-) organomegaly, normal bowel sounds. Back: (-) CVA tenderness Extremities: No edema. Skin: Warm, dry, (-) rash. Neuro: Not responding to pain, GCS: 3 (see scale), NIH: 37 (see scale) Psychiatric: Deferred Triage Information Reviewed: Yes Vital Signs Reviewed: Yes Completion Of Physical Exam Limited Due To: Level 5 - decreased responsiveness - [place] Coma Scale Best Eye Response: 1 - None Best Motor Response: 1 - None Best Verbal Response: 1 - None Coma Scale Total: 3 Procedures - Sedation Patient Received Moderate/Deep Sedation with Procedure: No Diagnostics - Laboratory Result Diagrams: 06/21/19 03:16 06/21/19 03:16 Lab Statement: Any lab studies that have been ordered have been reviewed, and results considered in the medical decision making process. - Radiology CXR Radiology Interpretation Completed By: ED Physician Summary of Radiographic Findings: No infiltrate. No pleural effusion. ED physician has reviewed and interpreted this report. Pending official read. - CT Brain CT CT Interpretation Completed By: Radiologist Summary of CT Findings: Impression: 1. Large parenchymal hematoma centered in the right basal ganglia. It has a cone like appearance with the base of the cone located in the area of the 3rd ventricle. Rupture of the hematoma into the ventricular system in which there is a fair volume of blood in the left lateral ventricle with distension of the left atria. The right ventricle is effaced. Probable rupture of blood into the. subarachnoid space with blood in the area of the right temporal lobe and ox and occipital lobe. Associated vasogenic edema. There is a cyst subfalcine shift from right to left by about 2 cm. 2. Blood is seen in the area of the midbrain. Is unclear where if is within the midbrain or around the midbrain. The normal CSF in the ambient and intact in all cistern are effaced. 3. Small parenchymal hematoma in the left frontal lobe. This measures 8 mm in greatest length. 4. Blood is seen layering above the right tentorium. ED physician has reviewed this report. Head CTA CT Interpretation Completed By: Radiologist Summary of CT Findings: Impression: Moderate atherosclerosis at the right carotid bulb and severe focal atherosclerosis at the origin of the right internal carotid artery resulting in about seventy % focal stenosis. Distal artery is widely patent. Severe atherosclerosis at the left carotid bulb and proximal left internal carotid artery resulting in about 80% focal stenosis. Distal artery is widely patent after origin. Reference per NASCET criteria for degree of stenosis: Mild: less than 50% stenosis. Moderate: 50-69% stenosis. Severe: 70-94% stenosis. Near occlusion: 95-99% stenosis. ED physician has reviewed this report. - EKG 0314 Cardiac Rate: NL - 69 BPM EKG Rhythm: Sinus Rhythm Summary of EKG Findings: EKG at 0314 reveals normal sinus rhythm with rate of 69 BPM, no acute changes, no STEMI. This EKG was reviewed and interpreted by Dr. Chavez. NIH Scale - NIH Scale Level of Consciousness: Only Reflex Motor/Unresponsive Ask Patient the Month and His/Her Age: Neither Correct/Aphasic Ask Pt to Open/Close Eyes and Pick Up Attendant/Release Non-Paretic Hand: Neither Correctly Best Gaze (Only Horizontal Eye Movement): Forced Deviation Visual Field Testing: No Visual Loss Facial Paresis-Pt to Smile & Close Eyes or Grimace Symmetry: Complete Paralysis Motor Function - Right Arm: No Movement Motor Function - Left Arm: No Movement Motor Function - Right Leg: No Movement Motor Function - Left Leg: No Movement Limb Ataxia-Must be out of Proportion to Weakness Present: Absent Sensory (Use Pinprick to Test Arms/Legs/Trunk/Face): Severe to Total Loss Best Language (Describe Picture, Name Items): Mute/Global Aphasia Dysarthria (Read Several Words): Unintelligible or Mute Extinction and Inattention: Profound Ector-Inattention Total Score: 37 Re-Evaluation - Re-Evaluation First Eval Re-Evaluation Time: 03:10 Comment: Telestroke initiated. Second Eval Re-Evaluation Time: 03:15 Comment: I called and spoke with the patient's son, Gustavo Rordigues. i explained that patient had an intracranial bleed and her condition was very serious. advised him to come to hospital. He states regarding patient's code status, that she has elected to defer from CPR but will take medications and shocking if needed. Third Eval Re-Evaluation Time: 03:35 Comment: Code stratton and Telestroke canceled. Fourth Eval Re-Evaluation Time: 03:46 Comment: i called Patient's son again. updated him on patient's worsening status. advised that he consider comfort care at this time. comfirmed neurosurgery felt this was a terminal event and surgery not indicated. he agrees with placing the patient on comfort care. Course/Dx - Course Course Of Treatment: Patient administered fluids. - Diagnoses Provider Diagnoses: Intracranial hemorrhage During the Visit The Following Alert/Code Occurred: Code Eusebio - called at 0240, canceled at 0335 - Physician Notifications Discussed Care Of Patient With: King Barger - neurosurgery Time Discussed With Above Provider: 03:05 Instructed by Provider To: Other - I discussed the patient's case with Dr. Barger, and he recommends determining the code status. He will look at the films. He recommends admission but without surgical intervention secondary to the patient's condition, this is likely a terminal event. He suggests comfort care rather than transfer. He will come see the patient in the ED. Dr. Modi from the hospitalist services accepts the patient for admission with comfort care [[id number]]. - Critical Care Time Critical Care Time: 75-104 min - 92 minutes CCT Discharge ED - Sign-Out/Discharge Documenting (check all that apply): Patient Departure - Patient accepted for admission by Dr. Modi. - Discharge Plan Condition: Critical Disposition: ADMITTED TO [facility] - Billing Disposition and Condition Condition: CRITICAL Disposition: Admitted to [facility] - Attestation Statements Document Initiated by Scribe: Yes Documenting Scribe: Shonna Alfonso Provider For Whom José is Documenting (Include Credential): Dr. Taylor Chavez MD Scribe Attestation: Shonna Purcell, scribed for Dr. Taylor Chavez MD on 06/24/19 at 7704. Scribe Documentation Reviewed: Yes Provider Attestation: The documentation as recorded by the scribe, Shonna Alfonso accurately reflects the service I personally performed and the decisions made by me, Dr. Taylor Chavez MD Status of José Document: Viewed
[2019-06-21] MEDS ORDERED: Iodixanol* (CONTRAST) 320 MG/ML 100 ML SDV IV ONE (03:07)
[2019-06-21 03:22] LABS: ABS Lymphocytes 0.6 10^3/ul (1.0-4.8); ABS Monocytes 0.6 10^3/ul (0-0.8); Eosinophil % 0.1 %; Hematocrit 43 % (35-47); Hemoglobin 14.5 g/dL (12.0-16.0); Lymphocyte % 5.9 %; Mean Corpuscular HGB Conc 34 g/dL (31-36); Mean Corpuscular Hemoglobin 34 pg (27-31); Mean Corpuscular Volume 99 fL (80-97); Mean Platelet Volume 8.4 fL (7.4-10.4); Platelet Count 210 10^3/uL (150-450); Red Blood Count 4.34 10^6 /uL (3.70-4.87); Red Cell Distribution Width 13 % (10-15); White Blood Count 10.3 10^3/uL (3.5-10.8)
[2019-06-21 03:31] LABS: Activated Partial Thrombo Time 29.5 seconds (26.0-38.0)
[2019-06-21 03:39] LABS: ALT 11 U/L (7-52); AST 25 U/L (13-39); Albumin 3.8 g/dL (3.2-5.2); Albumin/Globulin Ratio 1.3 (1-3); Alkaline Phosphatase 94 U/L (34-104); Anion Gap 9 mmol/L (2-11); BUN/Creatinine Ratio 30.1 (8-20); Blood Urea Nitrogen 34 mg/dL (6-24); CO2 Carbon Dioxide 28 mmol/L (22-32); Calcium 9.5 mg/dL (8.6-10.3); Chloride 101 mmol/L (101-111); Cholesterol 200 mg/dL; EGFR Non-African American 45.4 (>60); Glucose 168 mg/dL (70-100); HDL Cholesterol 79.3 mg/dL; LDL Cholesterol 103 mg/dL; Sodium 138 mmol/L (135-145); Total Protein 6.8 g/dL (6.4-8.9); Triglycerides 89 mg/dL
[2019-06-21 03:56] LABS: Troponin I 0.23 ng/mL (<0.03)
[2019-06-21] MEDS ORDERED: Lorazepam PYXIS KEY PRN (04:15)
[2019-06-21] MEDS ORDERED: LORazepam INJ* 2 MG/ML 1 ML VIAL IV PUSH PRN (04:15)
--- NOTE | 2019-06-21 06:10 | HP ---
[facility] * HISTORY AND PHYSICAL: DATE OF ADMISSION: 06/21/19 PRIMARY CARE PROVIDER: [place] Chang. ATTENDING PHYSICIAN WHILE IN THE HOSPITAL: Dr. Modi * (report dictated by Zachary Matute NP). CHIEF COMPLAINT: Altered mental status. HISTORY OF PRESENT ILLNESS: I am unable to obtain any history from the patient herself given her current condition. She is nonresponsive with exception to pain only. The patient apparently tonight at the [facility] was found on the floor unresponsive. It was unknown how she got there or how long she had been on the floor for according to the nursing staff. There was concern given her clinical state. 911 was called and the patient was brought to the hospital. Maddy Montero was called. Initial NIH stroke scale was 37. Upon further investigation with CT imaging, it was noted that she had a substantial intracranial hemorrhage with a 2 cm shift. At that point, discussion was had with the patient's health care proxy, Evaristo Rodrigues, the patient's son, and it was felt that he wanted to keep the patient, his mother, comfortable at this point. Because of this, we were asked to evaluate for admission. PAST MEDICAL HISTORY: According to old records, includes: 1. Aortic stenosis. 2. Ventricular tachycardia. 3. Hypertension. 4. Diverticulitis. 5. Hemorrhoids. 6. Colon cancer. 7. Coronary artery disease. 8. Asthma. 9. Peripheral vascular disease. PAST SURGICAL HISTORY: Significant for: 1. Colon cancer surgery. 2. Ganglion cyst removal. 3. Hernia repair. 4. Aortic valve replacement. 5. Cataract surgery. 6. Multiple skin surgeries for skin cancer. 7. Arterial stenting to the right leg. HOME MEDICATIONS: According to paperwork sent [facility] from [facility] includes: 1. Tylenol 325 mg 2 tablets every 6 hours as needed. 2. Tums 1000 mg every 12 hours as needed for indigestion. 3. Amiodarone 100 mg daily. 4. Aspirin 81 mg daily. 5. Multivitamin 1 tablet daily. 6. B12 500 mcg p.o. daily. 7. Gabapentin 300 mg at bedtime. 8. Nortriptyline 25 mg at bedtime. 9. Potassium 20 mEq daily. 10. Vitamin D3 2000 units by mouth daily. ALLERGIES TO MEDICATIONS: Include ASPARTAME, METOPROLOL, CRESTOR, ZOCOR, STEVIA , SPLENDA, ATENOLOL, LIPITOR, PLAVIX, ZETIA, NIACIN, HMG-COA REDUCTASE, ARTIFICIAL SWEETENERS, AND PENTOXIFYLLINE. FAMILY HISTORY: Unable to be obtained from the patient. SOCIAL HISTORY: Unable to be obtained from the patient. The surrogate decision maker is the patient's son. REVIEW OF SYSTEMS: Again, unable to be obtained from the patient given that she is nonverbal and unresponsive. PHYSICAL EXAMINATION GENERAL: At this time, Mrs. Merida is an 89-year-old female patient. She is sitting in the ED stretcher. She does not appear to be in any acute distress. She is well developed and well nourished. VITAL SIGNS: Blood pressure 133/67, pulse 72, respirations were 22, O2 saturation is 86% on a nonrebreather, temperature 96.7. HEENT: Head: Atraumatic. Eyes: Sclerae anicteric. Pupils were fixed and dilated. Unable to obtain EOMs. Throat: Oral mucosa is dry. No oropharyngeal erythema. NECK: Supple. LUNGS: She had rhonchi noted in the upper lobes. Clear in the bases. HEART: Heart sounds S1, S2. Regular rate and rhythm. No murmurs, rubs, or gallops. ABDOMEN: Soft, flat, nontender. EXTREMITIES: Pulses were 2+. She had no peripheral edema. NEUROLOGIC: She responds only to pain. She will not follow commands. Corneal reflex was intact. She had no gag noted. Babinski's were equivocal. Reflexes were down throughout. She was mute. She had profound neglect noted. Unable to move her extremities. SKIN: Intact. DIAGNOSTIC STUDIES/LAB DATA: WBC 10.3, RBC 4.34, hemoglobin 14.5, hematocrit 43 , platelet count 210. INR 1. PTT 29.5. Sodium 138, potassium 4, chloride of 101, bicarb 29, BUN 34, creatinine 1.13, glucose 168. Lactate 1.8. Calcium 9.5. Total bili 0.5, AST 25, ALT 11, alk phos 94. Troponin 0.23. Albumin 3.8. Triglycerides were 89. LDL 103. She had a CTA of the head, which showed impression: Leftward deviation of the vertebrobasilar arteries and anterior cerebral and left middle cerebral arteries ; superior deviation of the right middle cerebral artery, this limits evaluation of the exam; moderate atherosclerosis of the right carotid bulb and severe focal atherosclerosis at the origin of the right internal carotid resulting in severity of focal stenosis, distal artery is widely patent, severe atherosclerotic disease of the left carotid bulb and proximal left internal carotid artery resulting in about 80% stenosis, distal artery is widely patent after origin. CT of the brain showed, impression: Large parenchymal hematoma centered in the right basal ganglia that has a cone-like appearance with the base of the cone located in the area of the third ventricle, rupture of the hematoma into the ventricular system in which there is a fair amount of blood in the left ventricle with distention of the left atria. The right ventricle is effaced, probable rupture of blood into the subarachnoid space with blood in the area of the right temporal lobe and occipital lobe. Associated vasogenic edema. There is a subfalcine shift from the right to left of about 2 cm. Blood is seen in the area of the mid brain, it is unclear whether this is within the mid brain or around the mid brain. Normal CSF intact and all cisterns are effaced. Small parenchymal hematoma in the left frontal lobe. This measures 8 mm in its greatest length. Blood is seen layering above the right tentorium. Chest x-ray obtained showed hyperinflation, some pulmonary edema in the upper lobes, no infiltrates were noted. EKG was obtained and showed normal sinus rhythm, rate of 69, no ST elevations, she does have a PVC. ASSESSMENT AND PLAN: Ms. Merida is an 89-year-old female patient who [facility] to be on the floor today unresponsive. She will be admitted under inpatient status for: 1. Large intraparenchymal hemorrhage of unknown etiology. At this point, the patient was evaluated by Neurosurgery. She was deemed to not be a surgical candidate, and the son did not want pursue surgery. He had opted for comfort care only which, given her comorbid conditions and the severity of bleed, I think is more than appropriate. At this point, I have ordered atropine sublingual for secretions. I have ordered p.r.n. Ativan and morphine for the patient. I did offer manager clinical services support; however, the son declined at this point. She is a DNR/DNI. We will keep her comfortable. I will admit her to the floor. I do not suspect her to last longer than 24 hours given the severity of the hemorrhage. 2. History of peripheral vascular disease. Again, she is on comfort care. 3. Coronary artery disease. Again, continue with comfort measures at this point. 4. Asthma. We will keep the patient comfortable at this point. 5. History of hypertension. Again at this point, we are opting for comfort care. 6. DVT prophylaxis. She is comfort measures only. 7. Code status. DNR/DNI. 8. Fluids, electrolytes, and nutrition. I do not anticipate she will regain consciousness, so we will hold on hydration at this point or food. If she does awaken, we can always place an order, but again I do not believe this will happen. TIME SPENT: Time spent on the admission 60 minutes, greater than half the time spent [id number] with the patient obtaining my history and physical; other half time spent going over the plan of care with the patient and implementing plan of care. I did discuss the plan of care with my attending, who is in agreement. ZACHARY MATUTE NP [id number]/CPS #: [id number] TRAVIS
[2019-06-21] MEDS: Morphine INJ* 4 MG/ML 1 ML SYRINGE (NEW SYRINGE VERSION) IV PRN ×4 (08:29→23:55)
[2019-06-21] MEDS: Atropine 1% (ORAL/SL)* 15 ML BTL SL PRN ×2 (08:30→21:27)
[2019-06-21 08:38] VITALS: BP 170/81
--- NOTE | 2019-06-21 09:58 | CONS ---
CONSULTATION NOTE: DATE OF CONSULT: 06/21/19 HISTORY OF PRESENT ILLNESS: The patient is an 89-year-old female who is a senior living resident, who was reported to have altered mental status. The patient was reported to be found lying on the floor in her room without signs of trauma, unresponsive. The patient was reported to have pupils fixed and dilated with minimal response to painful stimuli. The patient was reported to be on aspirin without any other history of any anticoagulation medication. We were requested to see the patient by emergency room physician, Dr. 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 The patient has a DNR order. PAST MEDICAL HISTORY: Per the patient's medical record: 1. Angina. 2. Coronary artery disease. 3. Hypertension. 4. Aortic valve repair. 5. Asthma. 6. Colon cancer with resection. 7. Neuropathy. 8. Vertigo. 9. Former smoker. PAST SURGICAL HISTORY: 1. Colon resection. 2. Aortic valve replacement. 3. Hernia repair x2. 4. Cataract surgery. 5. Peripheral vascular disease with stents in lower extremities. ALLERGIES: ASPARTAME, FLUVASTATIN, METOPROLOL, PENTOXIFYLLINE, ROSUVASTATIN, SIMVASTATIN, STEVIOSIDE, SUCRALOSE, ATENOLOL, ATORVASTATIN, CLOPIDOGREL, ZETIA, NIACIN, STATINS, ARTIFICIAL SWEETENERS. FAMILY HISTORY: Positive for cardiac disease, hypertension. SOCIAL HISTORY: Tobacco, negative. Alcohol, negative. Recreational drug use, negative. PHYSICAL EXAM: The patient is unresponsive. She has labored breathing. She does not open her eyes to pain. She is nonverbal and she minimally extends her lower extremities to painful stimuli. Pupils are fixed and dilated to 6 mm. The patient does not grimace to pain. She minimally extends the lower extremities to painful stimuli. Corneal reflex is present. Deep tendon reflexes +2 bilaterally. No clonus. Babinski positive bilaterally. DIAGNOSTIC STUDIES/LAB DATA: The patient had a CT scan of the brain revealing a very large right basal ganglia hematoma with extension to the temporal lobe as well as to the left ventricular system. There is complete compression of the right ventricular system and effacement of the basal cisterns. There is 2 cm midline shift. The patient had a CT that did not reveal any evidence of aneurysm or vascular malformation, although the exam is limited by the mass effect from the intracranial hemorrhage. ASSESSMENT: The patient is an 89-year-old female with multiple medical history with a large right intracranial hemorrhage. PLAN: The patient at this point has a very large intracranial hemorrhage. Her ICH score is 5. The patient has extremely poor prognosis and the reported mortality rate in patients with ICH score of 5 is [address]%. Dr. Chavez contacted the patient's son, who also confirmed the DNR status and according to the patient's wishes, no further intervention is desired. The patient was placed on care of comfort. Thank you for allowing us to participate in the care of this patient. Please do not hesitate to contact our office in case if you have any further questions or concerns regarding the care of this patient. [id number]/[facility] #: [id number] TRAVIS
--- NOTE | 2019-06-21 12:41 | PN ---
Subjective Date of Service: 06/21/19 Interval History: Pt remains unresponsive. There are two family members in the room who deny witnessing any recent signs of distress or discomfort from the pt. Spoke to the pt's nurse who admits to giving her 1 dose of morphine and 1 dose of atropine earlier this shift. Objective Active Medications: Atropine Sulfate (Atropine 1% (Oral/Sl)*) 2 drop SL Q2H PRN PRN Reason: SECRETIONS Last Admin: 06/21/19 08:30 Dose: 2 drop Lorazepam (Ativan Inj*) 1 mg IV PUSH Q6H PRN PRN Reason: ANXIETY Miscellaneous (Ativan Pyxis Hess) 1 ea N/A .ATIVAN IV HESS PRN PRN Reason: PYXIS HESS Morphine Sulfate (Morphine Inj (Syringe)*) 4 mg IV Q2H PRN PRN Reason: PAIN - SEVERE Last Admin: 06/21/19 08:29 Dose: 4 mg Vital Signs - 8 hr 06/21/19 06/21/19 06/21/19 04:48 05:00 05:03 Temperature Pulse Rate 71 72 73 Respiratory 23 24 23 Rate Blood Pressure 149/72 133/68 (mmHg) O2 Sat by Pulse 87 89 89 Oximetry 06/21/19 06/21/19 06/21/19 05:18 05:33 06:15 Temperature 0 F Pulse Rate 63 63 76 Respiratory 23 26 26 Rate Blood Pressure 154/66 157/77 157/77 (mmHg) O2 Sat by Pulse 88 92 92 Oximetry 06/21/19 06/21/19 06/21/19 06:22 06:28 07:15 Temperature 97.6 F 98.3 F Pulse Rate 78 74 Respiratory 24 24 28 Rate Blood Pressure 148/65 170/81 (mmHg) O2 Sat by Pulse 88 100 Oximetry 06/21/19 06/21/19 06/21/19 08:00 08:29 10:21 Temperature Pulse Rate Respiratory 28 28 22 Rate Blood Pressure (mmHg) O2 Sat by Pulse 100 Oximetry Oxygen Devices in Use Now: Nasal Cannula - 3L O2 Appearance: Pt laying in bed, no signs of acute distress Eyes: - - Pupils are dilated and fixed bilaterally Ears/Nose/Mouth/Throat: - - Lips are dry Respiratory: Symmetrical Chest Expansion and Respiratory Effort - Faint inspiratory crackles to RLL, all other lobes clear bilaterally Cardiovascular: RRR Abdominal: - - Normoactive BS throughout. R sided distention, no signs of discomfort during palpation Extremities: No Edema Skin: - - discoloration of skin to lower R farmer/calf Neurological: - - Non-responsive. Positive babinski reflex. Nutrition: - - Comfort care. Non-responsive. No necessary nutrition measures at this time Result Diagrams: 06/21/19 03:16 06/21/19 03:16 Microbiology and Other Data: Microbiology 06/21/19 08:30 Nasal Screen MRSA (PCR) - Final Nasal Mrsa Not Detected Assess/Plan/Problems-Billing Assessment: is an 89yo female with PMHx significant for aortic stenosis, HTN, PVD , CAD, asthma. Brought to the ED via EMS after being found on the floor and unresponsive at the CT. Found to have a large intracranial hemorrhage. Placed on comfort care measures. She is a DNR/DNI. - Patient Problems (1) Intracranial hemorrhage Current Visit: Yes Status: Acute Code(s): I62.9 - NONTRAUMATIC INTRACRANIAL HEMORRHAGE, UNSPECIFIED SNOMED Code(s): 9567183 Comment: Found on floor at CT and unresponsive per report. CT shows large intracranial hemorrhage with 2cm shift. Not a surgical candidate per neurosurg consult. Per son who is HCP comfort measures have been initiated. Pt is DNR/DNI. Continue morphine and ativan for any signs of distress Continue atropine for secretions Continue to titrate O2 therapy to help alleviate difficulty breathing (2) Asthma Current Visit: Yes Status: Acute Code(s): J45.909 - UNSPECIFIED ASTHMA, UNCOMPLICATED SNOMED Code(s): 460584042 Comment: Continue with comfort measures (3) Hypertension Current Visit: No Status: Acute Code(s): I10 - ESSENTIAL (PRIMARY) HYPERTENSION SNOMED Code(s): 43360974 Comment: Continuing with comfort measures only (4) DNR (do not resuscitate) Current Visit: No Status: Acute Comment: Continuing with comfort measures (5) DVT prophylaxis Current Visit: No Status: Acute Code(s): Z29.9 - ENCOUNTER FOR PROPHYLACTIC MEASURES, UNSPECIFIED SNOMED Code(s): 419868419 Comment: Continuing with comfort measures Status and Disposition: Status: Poor, unresponsive Disposition: on medical unit, comfort care measures only as status remains/ declines Attending: Elenita Lenz
[2019-06-22] MEDS: Morphine INJ* 4 MG/ML 1 ML SYRINGE (NEW SYRINGE VERSION) IV PRN (02:09)
--- NOTE | 2019-06-23 11:58 | DS ---
CC: Omar Downing * SUMMARY: DATE OF ADMISSION: 06/21/19 DATE OF : 06/22/19 MY ATTENDING PHYSICIAN WHILE IN THE HOSPITAL: Dr. Gail Acosta * (report dictated by Zachary Matute NP) PRIMARY CARE PROVIDER: Omar Downing. PRINCIPAL DIAGNOSIS: Includes intracranial hemorrhage. HISTORY OF PRESENTING ILLNESS: Ms. Merida was an 89-year-old female patient that presented on the night of 06/21/19, was found on the floor at her skilled-nursing facility. She came in altered, code chayito was called. It was found that she had a massive intracranial hemorrhage. The patient was seen in consult by Neurosurgery. It was felt that she would not benefit from surgery and that she had a high risk for mortality and poor prognosis. The patient's son was contacted who wished to not pursue surgery and to keep the patient comfortable. The patient was admitted by myself. She was kept comfortable in the form of morphine and Ativan as needed. I was called by nursing staff as it was noted that the patient had at 3:20 on 06/22/19. The patient had no auscultated heart sounds, no breath sounds, pupils were fixed and nonreactive at this point. She on 06/22/19 at 3:20 in the morning. certificate was filed. Please note the family was contacted by nursing staff, autopsy was not requested. ZACHARY MATUTE NP [id number]/[facility] #: [id number] MTDD
== END 2019-06-22 03:20 | disposition expired | DRG 66 ==
LOC: ED 02:39 → MED 04:13
PROVIDERS: ADMIT Student in an Organized Health Care Education/Training Program; ATTEND Internal Medicine
DX: I61.0 Nontraumatic intracerebral hemorrhage in hemisphere, subcortical (principal); I25.10 Atherosclerotic heart disease of native coronary artery without angina pectoris; R40.2312 Coma scale, best motor response, none, at arrival to emergency department; R40.2112 Coma scale, eyes open, never, at arrival to emergency department; R40.2212 Coma scale, best verbal response, none, at arrival to emergency department; I10 Essential (primary) hypertension; J45.909 Unspecified asthma, uncomplicated; G62.9 Polyneuropathy, unspecified; Z66 Do not resuscitate; R29.737 NIHSS score 37; I73.9 Peripheral vascular disease, unspecified; Z87.891 Personal history of nicotine dependence; Z88.1 Allergy status to other antibiotic agents; Z95.2 Presence of prosthetic heart valve; Z85.038 Personal history of other malignant neoplasm of large intestine; Z88.8 Allergy status to other drugs, medicaments and biological substances; Z85.828 Personal history of other malignant neoplasm of skin; Z95.828 Presence of other vascular implants and grafts; Z92.21 Personal history of antineoplastic chemotherapy; Z92.3 Personal history of irradiation
CPT/HCPCS: 36415; 70450; 70496; 70498; 71045; 80053; 80061; 83605; 84484; 85025; 85610; 85730; 87641; 93005; 99284; J2270; Q9967